=== PATIENT | male | born 1940 | race Caucasian/White ===

== ENCOUNTER 2024-05-06 17:57 | Inpatient (IN) | payer MEDICARE, OTHER, SELFPAY ==
[2024-05-06] VITALS (7 sets, daily range): BP systolic 153–177; BP diastolic 70–90; BMI 22.2
--- NOTE | 2024-05-06 16:46 | ED.GENMED ---
History of Present Illness
General
Chief Complaint: Breathing Problem
Time Seen by Provider: 05/06/24 16:46
History of Present Illness
History of Present Illness:
TIME OF INITIAL ENCOUNTER: 4:45 PM
HPI: EMS reported room air sats of 83%, coming in from home. He reportedly did not want to be on dialysis as of 5 weeks ago and has been having shortness of breath over the past week. He was in more significant distress today and came in here by
EMS. His weight was as low as 114 pounds but currently is 141 pounds.
GENERAL: Chronically ill-appearing
HEENT: Moist oral mucosa
CARDIOVASCULAR: No murmurs, normal heart rate, regular rhythm, No chest wall tenderness
PULMONARY: Mild to moderate respiratory distress, decreased breath sounds at the bases with Rales
ABDOMEN: Soft with no peritoneal signs, no tenderness
NEUROLOGIC: Excellent strength all extremities, no coordination deficits
PSYCHIATRIC: Appropriate mental status, normal insight and judgement
EXTREMITIES: There is a thrill to the right upper extremity at the right AC
SKIN: No rash, no lesions EXAM:
NUMBER AND COMPLEXITY OF PROBLEMS ADDRESSED AT THE ENCOUNTER
� Chronic conditions affecting care: CHF, CKD, high blood pressure, hyperlipidemia, thyroid disease, diabetes
� Acute Exacerbation and/or Progression of Chronic Illness: This is a subacute/worsening problem
� Differential Diagnosis includes: Volume overload, CKD, hyperkalemia, pneumonia, CHF
AMOUNT AND/OR COMPLEXITY OF DATA TO BE REVIEWED AND ANALYZED
� I performed an independent evaluation of and my interpretation is:
EKG: Sinus 64, right bundle branch block
CT:
X-rays: Interstitial edema noted on chest x-ray�I personally reviewed
Laboratory Studies: Creatinine 4.5, bicarb 19, potassium 4.9, hemoglobin 7.8
Other:
� Review of other/old records: Hemoglobin 1 year ago was 8.7
� Clinical information was obtained by an independent historian: EMS; I spoke to his son (Dr. Galen Galvan, senior health physics technician) over the phone
� Prescriptions/Medications Considered but not given:
� Further testing considered but not performed:
RISK OF COMPLICATIONS AND/OR MORBIDITY OR MORTALITY OF PATIENT MANAGEMENT
� Social determinants of health affecting care: Lives at home
� Discussion with other providers: Hospitalist for admission at 5:20 PM; I also notified nephrology
� Escalation of care including admission/observation vs risk of discharge considered: See below
ANY OTHER UPDATES:
5:20 PM: I reassessed patient and patient is currently not willing to proceed with dialysis however is not sure yet. Will give IV diuretic. Plan admission to the hospital. Shortness of breath likely multifactorial as there has been increased
weight gain he does have evidence of volume overload and patient is also anemic.
Phy Exam
Physical Exam
Physical Exam:
See HPI
Scores
Heart Failure Risk
Heart Failure Risk Score: Not Applicable
Course
Orders/Labs/Results
Orders:
Orders
05/06/24 16:34
Electrocardiogram (*1) Urgent
Reason for Study: Other
Other Reason for Exam: Respiratory Distress
EKG- Treatment ONCE
O2 Therapy [RESP] Urgent
Titrate/Wean O2 to maintain O2 sat greater than (%): 93
Special Instructions: TO MAINTAIN CONTINUOUS O2 SATS >/= 93%
05/06/24 16:40
Complete Blood Count/With Diff Urgent
Comprehensive Metabolic Panel Urgent
NT-proBNP Urgent
05/06/24 17:08
Furosemide [Lasix] 40 mg IV NOW STA
05/06/24 17:12
CXR [CR Chest Portable - 1 View] Urgent
Comment:
Reason For Exam: SOB, low SPO2
Reason Study Needs to be Portable: Patient Unstable
05/06/24 17:34
Admit/Transfer Patient As Directed
Co-Sign Provider:
Level of Care: Inpatient admission
Assign to:: Telemetry
Physician / Group: Ford
Diagnosis: Shortness of breath sec to fluid overload from CKD
Reason for Telemetry: Acute Heart Failure
Date to Stop Telemetry: 05/09/24
Time to Stop Telemetry: 11:00
Reason for Hospitalization: see progress note
Expected length of stay greater than two midnights?: Yes
ELOS- Estimated Length of Stay in days: 3
I certify the patient meets the requirements for IP care: Yes
PRN Pain Medication Management As Directed
May give lesser potent ordered pain med per pt: Yes
preference::
Protocol:: Medication orders for pain may be administered in a
manner that supports deferring to patient preference
when the pt is:
- Requesting an ordered lesser potent pain medication.
Least to most potent pain medications are defined
as: acetaminophen < NSAID < tramadol < opioids
(morphine, oxycodone, hydromorphone).
- Requesting a lesser dose of the same medication IF
ORDERED.
- Requesting a less intrusive route of administration
if both routes are prescribed by the provider (PO <
IV).
05/06/24 17:35
Code Status As Directed
Resuscitation Status: Full Code
05/06/24 18:19
COVID-19 Antigen Routine
Source: Nasal Swab
Influenza A+B Rapid Molecular Routine
BRUCE Source: Nasal Swab
Specimen Description:
05/09/24 11:00
DC Protocol for Telemetry ONCE
Abnormal Lab Results
05/06/24
16:40
RBC 2.40 L 10^6/uL
(4.70-6.10)
Hgb 7.8 L g/dL
(13.0-18.0)
Hct 24.0 L %
(39.0-52.0)
MCV 100.0 H fL
(80.0-94.0)
MCH 32.5 H pg
(27.0-31.0)
MCHC 32.5 L g/dL
(33.0-37.0)
RDW 17.1 H %
(11.5-14.5)
Absolute Lymphs (auto) 0.7 L 10^3/uL
(1.2-3.4)
Absolute Monos (auto) 0.7 H 10^3/uL
(0.1-0.6)
Neutrophils % 78.2 H %
(42.2-75.2)
Lymphocytes % 9.6 L %
(20.5-51.1)
Monocytes % 10.3 H %
(1.7-9.3)
Chloride 108 H mmol/L
(98-107)
Carbon Dioxide 19 L mmol/L
(22-30)
BUN 72 H mg/dl
(9-20)
Creatinine 4.5 H* mg/dL
(0.7-1.3)
Glucose 112 H mg/dl
(70-99)
Total Protein 5.7 L g/dl
(6.3-8.2)
Albumin 3.3 L g/dl
(3.5-5.0)
05/06/24 16:40
05/06/24 16:40
Vital Signs
Initial and Last Documented VS:
Initial Vital Signs
Temp Pulse Resp BP Pulse Ox
97.9 F 83 20 177/90 96
05/06/24 16:34 05/06/24 16:34 05/06/24 16:34 05/06/24 16:34 05/06/24 16:34
Last Documented Vital Signs
Temp Pulse Resp BP Pulse Ox
97.9 F 65 24 158/80 96
05/06/24 16:34 05/06/24 19:00 05/06/24 19:00 05/06/24 19:00 05/06/24 16:34
*Critical Care Note
Total Time (30-74mins, 75-104mins- exclusive of procedures): Not Applicable
ED Attending Note
-
Portions of this chart may have been created with voice recognition software.� Occasional wrong word or��sound alike� substitutions may have occurred due to the inherent limitations of voice recognition software.
Discharge Plan
Departure
Patient Disposition: Admit
Date of Disposition: 05/06/24
Time of Disposition: 17:19
Presentation/result/management discussed w/ accepting MD/DO: Hospitalist
Discharge Problem:
Volume overload
Interventions
Interventions:
*Risk Screen - Suicide Last Done: 05/06/24 16:34
*General Assessment Last Done: 05/06/24 16:34
*Neglect/Abuse Screening Last Done: 05/06/24 16:34
*ED COVID-19 Vaccine History Last Done: 05/06/24 17:00
ED- Cardiac Assessment Last Done: 05/06/24 17:00
ED- Pulmonary Assessment Last Done: 05/06/24 17:00
[2024-05-06 16:48] LABS: % Basophils 0.1 % (0-2); % Eosinophils 1.4 % (0-6); % Immature Granulocytes 0.4 % (0-0.5); % Lymphocytes 9.6 % (20.5-51.1); % Monocytes 10.3 % (1.7-9.3); % Neutrophils 78.2 % (42.2-75.2); Absolute Eosinophils 0.1 10^3/uL (0-0.7); Absolute Lymphocytes 0.7 10^3/uL (1.2-3.4); Absolute Monocytes 0.7 10^3/uL (0.1-0.6); Absolute Neutrophils 5.5 10^3/uL (1.4-6.5); Hemoglobin 7.8 g/dL (13.0-18.0); Mean Corp Hgb Conc. 32.5 g/dL (33.0-37.0); Mean Corpuscular Hgb 32.5 pg (27.0-31.0); Mean Platelet Volume 9.9 fL (7.4-10.4); Nucleated Red Blood Cells % 0 % (-); Platelet Count 142 10^3/uL (130-400); Red Cell Dist. Width 17.1 % (11.5-14.5)
[2024-05-06 17:03] LABS: ALT (SGPT) 18 U/L (0-50); AST (SGOT) 30 U/L (17-59); Albumin 3.3 g/dl (3.5-5.0); Alkaline Phosphatase 114 U/L (38-126); Blood Urea Nitrogen 72 mg/dl (9-20); Calcium 8.7 mg/dl (8.4-10.2); Carbon Dioxide 19 mmol/L (22-30); Chloride 108 mmol/L (98-107); Estimated Creatinine Clearance 10 ml/min; Glucose 112 mg/dl (70-99); Potassium 4.9 mmol/L (3.5-5.1); Sodium 140 mmol/L (135-145); Total Bilirubin 0.9 mg/dl (0.2-1.3); Total Protein 5.7 g/dl (6.3-8.2); eGFR 12.13
[2024-05-06 17:10] LABS: NT-proBNP 15100 pg/ml
[2024-05-06] MEDS: LASIX 40 MG IV (17:16)
--- NOTE | 2024-05-06 17:52 | W.CON.NEPH ---
Consultation
-
Date/Time Consultation Requested: 05/06/24 1700
Date/Time Consultation Performed: 05/06/24 1750
Requesting Provider: Dr. Ford
Performing Provider: Dr. Meléndez
Reason for Consultation: CKD5
Medical History
-
Chief Complaint: Shortness of breath
History of Present Illness:
This is an 83-year-old gentleman who has CKD 5 current baseline approximately 4.5. He is on chronic diuretic therapy for volume management, a multidrug regimen for hypertension, sodium bicarbonate for metabolic acidosis. He had previously been on
dialysis via an AV fistula in his right upper arm. His last dialysis was back in November 2023. At that point he had elected not to do dialysis any further. Fortunately, his renal function had stabilized and he has been doing well at home. He comes
in today because of progressive shortness of breath over a few days time according to his . By her report he actually began to have speech slurring which is what prompted her to bring him to the emergency room. We are asked to assist with
management of his CKD.
Past Medical History
CKD 5, hypertension, hyperlipidemia, depression, BPH, hypothyroidism, Diazemuls type II, skin cancers, esophageal dilatation, Mohs surgery, TURP
Social History
Tobacco: Non-Smoker
Alcohol: None
Family History
Family History: Not Pertinent
Allergies / Home Medications
Allergy/AdvReac Type Severity Reaction Status Date / Time
No Known Allergies Allergy Verified 05/05/23 09:06
�Medication �Instructions �Recorded �Confirmed �Type
allopurinol 100 mg tablet 100 mg PO DAILY 07/21/22 05/06/24 History
amlodipine 10 mg tablet 5 mg PO DAILY 07/21/22 05/06/24 History
atorvastatin 10 mg tablet 10 mg PO HS 07/21/22 05/06/24 History
bupropion HCl 100 mg tablet,12 hr 100 mg PO TID 07/21/22 05/06/24 History
sustained-release
cholecalciferol (vitamin D3) 25 50 mcg PO DAILY 07/21/22 05/06/24 History
mcg (1,000 unit) capsule (Vitamin
D3)
finasteride 5 mg tablet 5 mg PO DAILY 07/21/22 05/06/24 History
levothyroxine 112 mcg tablet 112 mcg PO DAILY 07/21/22 05/06/24 History
doxazosin 8 mg tablet 4 mg PO HS 07/24/22 05/06/24 History
darbepoetin yeny in polysorbat 150 150 mcg SC .Q2-3W 05/06/24 05/06/24 History
mcg/0.3 mL in polysorbate
injection syringe (Aranesp)
dupilumab 300 mg/2 mL subcutaneous 300 mg SC Q2W 05/06/24 05/06/24 History
syringe (Dupixent)
metoprolol tartrate 25 mg tablet 12.5 mg PO BID 05/06/24 05/06/24 History
sodium bicarbonate 650 mg tablet 650 mg PO MEALS 05/06/24 05/06/24 History
venlafaxine 37.5 mg 37.5 mg PO DAILY@1230 05/06/24 05/06/24 History
capsule,extended release 24 hr
Review of Systems
-
Denies chest pain or shortness of breath. No issues with output. No change in appetite.
All other systems: Negative unless noted
Physical Exam
Vital Signs
Vital Signs
Temp Pulse Resp BP Pulse Ox
97.9 F 63 20 154/82 96
05/06/24 16:34 05/06/24 17:16 05/06/24 16:34 05/06/24 17:16 05/06/24 16:34
Lab Results
WBC 7.0 10^3/uL (4.8-10.8) 05/06/24 16:40
RBC 2.40 10^6/uL (4.70-6.10) L 05/06/24 16:40
Hgb 7.8 g/dL (13.0-18.0) L 05/06/24 16:40
Hct 24.0 % (39.0-52.0) L 05/06/24 16:40
Plt Count 142 10^3/uL (130-400) 05/06/24 16:40
Sodium 140 mmol/L (135-145) 05/06/24 16:40
Potassium 4.9 mmol/L (3.5-5.1) 05/06/24 16:40
Chloride 108 mmol/L (98-107) H 05/06/24 16:40
Carbon Dioxide 19 mmol/L (22-30) L 05/06/24 16:40
BUN 72 mg/dl (9-20) H 05/06/24 16:40
Creatinine 4.5 mg/dL (0.7-1.3) H* 05/06/24 16:40
eGFR 12.13 05/06/24 16:40
Glucose 112 mg/dl (70-99) H 05/06/24 16:40
Calcium 8.7 mg/dl (8.4-10.2) 05/06/24 16:40
Rwv-K-Mcntparqupx Pept 09572 pg/ml 05/06/24 16:40
Albumin 3.3 g/dl (3.5-5.0) L 05/06/24 16:40
Laboratory Tests
05/06/23
09:22
Hgb 8.7 L
Sodium 138
Creatinine 4.8 H*
Physical Exam
Patient is awake alert oriented and in no distress. Mood and affect were pleasant, insight and judgment were good. Pupils are equal round and reactive to light, extraocular movements are intact, sclera were anicteric. Hearing was normal, ears and
nose are intact. Oropharynx was clear. Neck was supple with trachea midline and no thyromegaly. Heart was regular rate and rhythm without rubs. Lower extremities without edema. Lungs were with faint Rales scattered to auscultation bilaterally and
with normal excursion. Abdomen was soft, nontender, with normal active bowel sounds, and no hepatosplenomegaly. Skin was without rash and with normal turgor.
Data Reviewed
-
Radiology: Image Personally Visualized and interpreted (Chest x-ray on May 16, 2024 by my reading shows diffuse opacities bilaterally, bilateral effusions)
Labs: Labs Reviewed by me
Old Records: Reviewed
Assessment/Plan
-
Assessment
CKD 5
Metabolic acidosis
Hypertension
Shortness of breath
Pulmonary edema
BPH
Anemia, on Aranesp
Plan
Check iron studies, continue TARUN
Lasix 80 mg IV daily
Infectious evaluation, COVID pending
Follow BMP
Family does not wish to pursue dialysis currently still nor would we recommend.
--- NOTE | 2024-05-06 17:55 | HPS.HSE ---
Family Physician
-
Family Physician: RAN SQUIRES, DO
Chief Complaint
-
Shortness of breath
History of Present Illness
Patient states he has been feeling short of breath for the last couple of days. He denies any orthopnea. Denies any lower extremity swelling.
He initially was short of breath on exertion now even at rest. When ambulance checked on him he was hypoxic to 84% on room air.
He has a chronic kidney disease on hemodialysis till November. He stopped dialysis and also Lasix was stopped at the same time. He says since he stopped hemodialysis his weight was going down to 114 but then said lately has been increasing currently at
141 pounds. Again he denies any lower extremity swelling.
He denies any runny nose cough or sore throat. Does not think he is infected. No fevers or chills at home. Nobody sick at home. Denies any chest pain or palpitations.
Denies any nausea vomiting or diarrhea.
Apart from hypoxia he was also noted to have chest x-ray suggestive for mild interstitial edema with bilateral pleural effusions.
Medical History
Past Medical History
Past Medical History: Reports HTN, Hypercholesterolemia, NIDDM, Renal Failure and Psychiatric (depression)
Past Surgical History: Reports Other (AV fistula)
Social History
Alcohol: None
Drug: None
Personal:
Living: With Family
Family History
Family History: Not pertinent
Allergies / Home Medications
Allergies reflects when Allergies were last updated in [facility].
Home Medications with original date entered in [facility]
Allergy/Medication List:
Allergies
Allergy/AdvReac Type Severity Reaction Status Date / Time
No Known Allergies Allergy Verified 05/05/23 09:06
Home Medications
allopurinol 100 mg tablet 100 mg PO DAILY 07/21/22
amlodipine 10 mg tablet 5 mg PO DAILY 07/21/22
atorvastatin 10 mg tablet 10 mg PO HS 07/21/22
bupropion HCl 100 mg tablet,12 hr sustained-release 100 mg PO TID 07/21/22
cholecalciferol (vitamin D3) 25 mcg (1,000 unit) capsule (Vitamin D3) 50 mcg PO DAILY 07/21/22
finasteride 5 mg tablet 5 mg PO DAILY 07/21/22
levothyroxine 112 mcg tablet 112 mcg PO DAILY 07/21/22
doxazosin 8 mg tablet 4 mg PO HS 07/24/22
darbepoetin yeny in polysorbat 150 mcg/0.3 mL in polysorbate injection syringe (Aranesp) 150 mcg SC .Q2-3W 05/06/24
dupilumab 300 mg/2 mL subcutaneous syringe (Dupixent) 300 mg SC Q2W 05/06/24
metoprolol tartrate 25 mg tablet 12.5 mg PO BID 05/06/24
sodium bicarbonate 650 mg tablet 650 mg PO MEALS 05/06/24
venlafaxine 37.5 mg capsule,extended release 24 hr 37.5 mg PO DAILY@1230 05/06/24
Review of Systems
-
A 12 point ROS was completed and negative except as noted: Yes
Physical Exam
Vital Signs
Vital Signs
Temp Pulse Resp BP Pulse Ox
97.9 F 63 20 154/82 96
05/06/24 16:34 05/06/24 17:16 05/06/24 16:34 05/06/24 17:16 05/06/24 16:34
Physical Exam
General: No Apparent Distress
HEENT: Moist mucous membranes
Respiratory: Crackles (Bibasal) and Non Labored Respirations; No Wheezes or Accessory Resp Muscle Use
Cardiac: S1/S2, Regular Rhythm, JVD and Other (?s3)
GI: Soft and Non Tender
Musculoskeletal: No Edema
Neuro: AO x 3 and No Motor Deficits; No Slurred Speech or Facial Droop
Psych: Calm; No Confused
Laboratory Results
-
05/06/24 16:40
05/06/24 16:40
Laboratory Results
Total Bilirubin 0.9 mg/dl (0.2-1.3) 05/06/24 16:40
AST 30 U/L (17-59) 05/06/24 16:40
ALT 18 U/L (0-50) 05/06/24 16:40
Alkaline Phosphatase 114 U/L (38-126) 05/06/24 16:40
Data Reviewed
-
Diagnostic Radiology: Report Reviewed by me (cxr)
Lab Data: Labs Reviewed by me
Impression/Plan
-
Acute hypoxic respiratory insufficiency suspected secondary to pulmonary interstitial edema
Acute interstitial edema suspected secondary to fluid overload from lack of hemodialysis. Rule out new CHF. Doubt infectious but cannot exclude as he does not have significant lower extremity edema. Admit to telemetry. Start on IV Lasix.
Consult nephrology. Check a procalcitonin and if it is negative it has good negative predictive value. Check a flu and COVID testing. Empirical antibiotics for 24 hours till data is back. Consider thoracentesis if no improvement with diuresis.
Follow chest x-ray with diuresis.
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 No hyperkalemia. Metabolic acidosis noted. Creatinine 4.5 which is not significantly higher. Consult nephrology. Follow I&O's and weights daily. Continue oral
bicarbonate.
Hypertension-continue the home medication and follow
Chronic anemia-hemoglobin 7.8. Patient is getting Aranesp as outpatient. Continue to follow. Check heme test stools.
Diabetes mellitus-diet controlled. Add sliding scale insulin.
CODE STATUS-patient wishes to be full code.
Discussed with at bedside regarding the findings and the treatment plan.
[2024-05-06 18:42] LABS: COVID-19 Antigen Negative (Negative)
[2024-05-06] MEDS: ROCEPHIN 1000 MG IV (21:05)
[2024-05-06] MEDS: HEPARIN 5000 UNITS SC (21:05)
[2024-05-06] MEDS: LIPITOR 10 MG PO (21:06)
[2024-05-06] MEDS: WELLBUTRIN REGULAR RELEASE 100 MG PO (21:06)
[2024-05-06] MEDS: VIBRAMYCIN 100 MG PO (21:06)
[2024-05-06] MEDS: CARDURA 4 MG PO (21:06)
--- NOTE | 2024-05-06 21:30 | PTCARENOTE ---
Patient admitted from ED. Patient AAO x3, on 6LNC, resting comfortably in bed, no other complaints. Patient oriented to room and call diaz within reach. Will continue to monitor respiratory status.
[2024-05-06 21:45] LABS: Glucose - Point of Care 100 mg/dl (70-99)
[2024-05-07 00:10] LABS: Procalcitonin 0.08 ng/ml (0.0-0.25)
[2024-05-07 03:50] VITALS: BP 134/62
[2024-05-07] MEDS: SYNTHROID 112 MCG PO (05:19)
[2024-05-07 06:00] VITALS: BMI 21.7
[2024-05-07 07:05] LABS: Hematocrit 23.7 % (39.0-52.0); Hemoglobin 7.8 g/dL (13.0-18.0); Mean Corp Hgb Conc. 32.9 g/dL (33.0-37.0); Mean Corpuscular Hgb 32.6 pg (27.0-31.0); Mean Corpuscular Volume 99.2 fL (80.0-94.0); Mean Platelet Volume 10.4 fL (7.4-10.4); Platelet Count 131 10^3/uL (130-400); Red Blood Cell Count 2.39 10^6/uL (4.70-6.10); Red Cell Dist. Width 16.8 % (11.5-14.5); White Blood Cell Count 6.8 10^3/uL (4.8-10.8)
[2024-05-07 07:34] LABS: Glucose - Point of Care 84 mg/dl (70-99)
[2024-05-07 07:35] VITALS: BP 163/84
[2024-05-07] MEDS: NOVOLOG FLEXPEN-LOW RESISTANCE SC ×3 (07:37→17:00)
[2024-05-07 08:35] LABS: Glycohemoglobin (HgbA1c) 5.6 % (4.0-5.6)
[2024-05-07 08:41] LABS: Blood Urea Nitrogen 75 mg/dl (9-20); Calcium 8.9 mg/dl (8.4-10.2); Carbon Dioxide 13 mmol/L (22-30); Chloride 111 mmol/L (98-107); Estimated Creatinine Clearance 10 ml/min; Glucose 73 mg/dl (70-99); Iron 42 ug/dl (49-181); Percent Saturation 21 % (20-50); Potassium 5.1 mmol/L (3.5-5.1); Sodium 141 mmol/L (135-145); Total Iron Binding Capacity 194 ug/dl (261-462); eGFR 11.82
[2024-05-07] MEDS: LOPRESSOR 12.5 MG PO ×2 (09:17→21:06)
[2024-05-07] MEDS: HEPARIN 5000 UNITS SC ×2 (09:17→21:06)
[2024-05-07] MEDS: VIBRAMYCIN 100 MG PO (09:18)
[2024-05-07] MEDS: WELLBUTRIN REGULAR RELEASE 100 MG PO ×3 (09:18→21:06)
[2024-05-07] MEDS: NORVASC 5 MG PO (09:18)
[2024-05-07] MEDS: PROSCAR 5 MG PO (09:18)
[2024-05-07] MEDS: LASIX 80 MG IV ×2 (09:18→16:01)
[2024-05-07] MEDS: SODIUM BICARBONATE 650 MG PO (09:18)
[2024-05-07] MEDS: VITAMIN D3 (cholecalciferol) 50 MCG PO (09:19)
[2024-05-07] MEDS: ZYLOPRIM 100 MG PO (09:19)
[2024-05-07 11:25] VITALS: BP 145/70
[2024-05-07 11:31] LABS: Glucose - Point of Care 111 mg/dl (70-99)
--- NOTE | 2024-05-07 11:41 | W.PN.NEPH.PH ---
Today's Communication / Plan
-
lasix BID
Assessment/Plan
-
Assessment
CKD 5
Metabolic acidosis
Hypertension
Shortness of breath
Pulmonary edema
BPH
Anemia, on Aranesp
Plan
TARUN last dosed 10days ago according to
PRBC transfusion up to primary team
IV Iron
increase Lasix 80 mg IV BID
Follow BMP
Family does not wish to pursue dialysis currently still nor would we recommend.
-
-
Date of Service: May 07, 2024
CC / HPI / ROS
-
Chief Complaint:
CKD5
History of Present Illness:
Cr stable 4.6
acidosis worse 13
remains anemia hgb 7.8
K normal
on IV lasix for pulmonary edema
Review of Systems:
no CP
mild SOB, on 6L o2
Labs
-
Labs:
WBC 6.8 10^3/uL (4.8-10.8) 05/07/24 05:28
RBC 2.39 10^6/uL (4.70-6.10) L 05/07/24 05:28
Hgb 7.8 g/dL (13.0-18.0) L 05/07/24 05:28
Hct 23.7 % (39.0-52.0) L 05/07/24 05:28
Plt Count 131 10^3/uL (130-400) 05/07/24 05:28
Sodium 141 mmol/L (135-145) 05/07/24 05:28
Potassium 5.1 mmol/L (3.5-5.1) 05/07/24 05:28
Chloride 111 mmol/L (98-107) H 05/07/24 05:28
Carbon Dioxide 13 mmol/L (22-30) L* 05/07/24 05:28
BUN 75 mg/dl (9-20) H 05/07/24 05:28
Creatinine 4.6 mg/dL (0.7-1.3) H* 05/07/24 05:28
eGFR 11.82 05/07/24 05:28
Glucose 73 mg/dl (70-99) 05/07/24 05:28
Calcium 8.9 mg/dl (8.4-10.2) 05/07/24 05:28
Tzs-W-Ncjbpvhpspw Pept 42904 pg/ml 05/06/24 16:40
Albumin 3.3 g/dl (3.5-5.0) L 05/06/24 16:40
Physical Exam
-
Vital Signs:
Vital Signs
Temp Pulse Resp BP Pulse Ox
98.0 F 71 18 163/84 94
05/07/24 07:35 05/07/24 09:17 05/07/24 07:35 05/07/24 09:17 05/07/24 07:35
Cardiovascular:: Regular rate and rhythm
Respiratory:: Bilateral: Coarse and Bilateral: Rales
Lung Excursion:: Normal
Abdomen:: Nontender and Soft
Bowel Sounds:: Normal
Extremity Edema:: None: Bilateral:
--- NOTE | 2024-05-07 13:26 | W.PN.HOSP.TC ---
Today's Communication/Plan
-
Continue with diuresis.
Follow weight.
ECHO.
DC antibiotics.
Assessment / Plan
Assessment / Plan
Acute hypoxic respiratory insufficiency suspected secondary to pulmonary interstitial edema
Acute interstitial edema suspected secondary to fluid overload from lack of hemodialysis. Rule out new CHF. CW IV Lasix -consider increasing the dose. ECHO. Appt nephrology input.
Doubt infectious -neg procalcitonin ; it has good negative predictive value. Patient with no infective symptoms of sore throat, cough, fever or chills. Neg flu and COVID testing. Hold Empirical antibiotics Consider thoracentesis if no
improvement with diuresis. Follow chest x-ray with diuresis.
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 No hyperkalemia. Metabolic acidosis noted. Creatinine 4.5 which is not significantly higher. Follow I&O's and weights daily. Continue oral bicarbonate.
Hypertension-continue the home medication and follow
Chronic anemia-hemoglobin 7.8. Patient is getting Aranesp as outpatient. Continue to follow. Check heme test stools.
Diabetes mellitus-diet controlled. cw sliding scale insulin.
CODE STATUS-patient wishes to be full code.
Discussed with nephrology today.
Total time spent on today's encounter was 52 minutes which included time spent in counseling the patient regarding diagnosis and treatment plan as listed above, goals of care, and symptom management. Case was discussed with nursing staff,
specialists . All labs and imaging personally reviewed by me. Remainder the time spent in detailed review of previous records, lab data, imaging, and other medical provider documentation.
Anticipated Discharge: > 48 hours
Subjective/Interval History
-
Date of Service: May 07, 2024
He made some decent urine with IV Lasix.
Denies any worsening shortness of breath. He thinks it may be better. Still on oxygen via nasal cannula. Sitting comfortably at the edge of the bed.
Denies any chest pain.
No cough again. Denies any sore throat or fever chills again.
Objective Data
-
Labs:
Laboratory Results
05/07/24
05:28
WBC 6.8
Hgb 7.8 L
Hct 23.7 L
Plt Count 131
Sodium 141
Potassium 5.1
Chloride 111 H
Carbon Dioxide 13 L*
BUN 75 H
Creatinine 4.6 H*
Glucose 73
Calcium 8.9
Vital Signs:
Vital Signs
Temp Pulse Resp BP Pulse Ox
97.8 F 61 18 145/70 97
05/07/24 11:25 05/07/24 11:25 05/07/24 11:25 05/07/24 11:25 05/07/24 12:01
I&O
05/06/24 05/07/24 05/08/24
06:59 06:59 05:59
Output Total 1200 / 1200
Balance -1200 / -1200
Review of Systems
-
EENT: Denies Sore Throat
Cardiac: Denies Palpitations
Abdomen/GI: Denies Abdominal Pain, Nausea or Vomiting
Neuro: Denies Dizzy
Physical Exam
-
General: Comfortable
Respiratory: Crackles (BL lower zone crackles) and Non Labored Respirations; Negative Wheezes or Accessory Resp Muscle Use
Cardiac: Regular Rhythm and S1/S2
GI: Soft and Nontender
Musculoskeletal: No Edema
Neuro: AO x 3
[2024-05-07] MEDS: EFFEXOR XR 37.5 MG PO (13:32)
[2024-05-07] MEDS: FERRLECIT 110 MG IV (14:23)
--- NOTE | 2024-05-07 14:53 | CM ---
CM following re: discharge planning.
Reviewed pt's chart, met with pt.
Pt is an 83 year old male, admitted with primary dx of Acute hypoxic respiratory insufficiency suspected secondary to pulmonary interstitial edema
Pt reports he lives with spouse in an apartment, 2nd floor, with elevator, has 2 supportive children. Pt described himself as independent in all areas [employer]. No DME, VN or SNF history.
PCP: Raffaele rangel
pharmacy: [facility]
D/C plan: home with anticipated no needs. family to transport at discharge.
CM will follow with discharge plan updates as hospitalization progresses
[2024-05-07 15:40] VITALS: BP 147/82
[2024-05-07 16:41] LABS: Glucose - Point of Care 130 mg/dl (70-99)
[2024-05-07 19:27] VITALS: BP 152/83
[2024-05-07] MEDS: SODIUM BICARBONATE 1300 MG PO (21:06)
[2024-05-07] MEDS: CARDURA 4 MG PO (21:06)
[2024-05-07] MEDS: LIPITOR 10 MG PO (21:06)
[2024-05-07 21:21] LABS: Glucose - Point of Care 94 mg/dl (70-99)
[2024-05-07 23:34] VITALS: BP 155/81
[2024-05-08] VITALS (7 sets, daily range): BP systolic 131–163; BP diastolic 73–85; BMI 20.7
[2024-05-08] MEDS: SYNTHROID 112 MCG PO (05:03)
[2024-05-08 06:07] LABS: Hematocrit 24.3 % (39.0-52.0); Hemoglobin 8.2 g/dL (13.0-18.0); Mean Corp Hgb Conc. 33.7 g/dL (33.0-37.0); Mean Corpuscular Volume 100.8 fL (80.0-94.0); Mean Platelet Volume 10.5 fL (7.4-10.4); Platelet Count 123 10^3/uL (130-400); Red Blood Cell Count 2.41 10^6/uL (4.70-6.10); White Blood Cell Count 6.1 10^3/uL (4.8-10.8)
[2024-05-08 06:39] LABS: Blood Urea Nitrogen 77 mg/dl (9-20); Calcium 8.7 mg/dl (8.4-10.2); Carbon Dioxide 19 mmol/L (22-30); Chloride 107 mmol/L (98-107); Estimated Creatinine Clearance 9 ml/min; Glucose 65 mg/dl (70-99); Potassium 4.4 mmol/L (3.5-5.1); Sodium 141 mmol/L (135-145); eGFR 10.95
[2024-05-08 07:09] LABS: Glucose - Point of Care 78 mg/dl (70-99)
[2024-05-08] MEDS: NOVOLOG FLEXPEN-LOW RESISTANCE SC ×3 (08:20→16:39)
--- NOTE | 2024-05-08 10:14 | W.PN.NEPH.PH ---
Today's Communication / Plan
-
lasix
Assessment/Plan
-
Assessment
CKD 5
Metabolic acidosis
Hypertension
Shortness of breath
Pulmonary edema
BPH
Anemia, on Aranesp
Plan
TARUN last dosed ~10days ago according to
PRBC transfusion prn
IV Iron
reduce lasix to daily
Follow BMP
Family does not wish to pursue dialysis currently still nor would we recommend.
-
-
Date of Service: May 08, 2024
CC / HPI / ROS
-
Chief Complaint:
CKD5
History of Present Illness:
HORACE/Cr up to 4.9
acidosis improving to 19
remains anemic but hgb up to 8.2
K normal
on IV lasix for pulmonary edema
Review of Systems:
no CP
mild SOB, on 6L o2
Labs
-
Labs:
WBC 6.1 10^3/uL (4.8-10.8) 05/08/24 05:15
RBC 2.41 10^6/uL (4.70-6.10) L 05/08/24 05:15
Hgb 8.2 g/dL (13.0-18.0) L 05/08/24 05:15
Hct 24.3 % (39.0-52.0) L 05/08/24 05:15
Plt Count 123 10^3/uL (130-400) L 05/08/24 05:15
Sodium 141 mmol/L (135-145) 05/08/24 05:15
Potassium 4.4 mmol/L (3.5-5.1) 05/08/24 05:15
Chloride 107 mmol/L (98-107) 05/08/24 05:15
Carbon Dioxide 19 mmol/L (22-30) L 05/08/24 05:15
BUN 77 mg/dl (9-20) H 05/08/24 05:15
Creatinine 4.9 mg/dL (0.7-1.3) H* 05/08/24 05:15
eGFR 10.95 05/08/24 05:15
Glucose 65 mg/dl (70-99) L 05/08/24 05:15
Calcium 8.7 mg/dl (8.4-10.2) 05/08/24 05:15
Sex-R-Jwngigoexbw Pept 70400 pg/ml 05/06/24 16:40
Albumin 3.3 g/dl (3.5-5.0) L 05/06/24 16:40
Physical Exam
-
Vital Signs:
Vital Signs
Temp Pulse Resp BP Pulse Ox
98.2 F 74 20 154/80 95
05/08/24 07:52 05/08/24 07:52 05/08/24 07:52 05/08/24 07:52 05/08/24 07:52
Cardiovascular:: Regular rate and rhythm
Respiratory:: Bilateral: Coarse and Bilateral: Rales
Lung Excursion:: Normal
Abdomen:: Nontender and Soft
Bowel Sounds:: Normal
Extremity Edema:: None: Bilateral:
[2024-05-08] MEDS: VITAMIN D3 (cholecalciferol) 50 MCG PO (10:45)
[2024-05-08] MEDS: WELLBUTRIN REGULAR RELEASE 100 MG PO ×3 (10:45→21:41)
[2024-05-08] MEDS: LOPRESSOR 12.5 MG PO ×2 (10:45→21:42)
[2024-05-08] MEDS: PROSCAR 5 MG PO (10:45)
[2024-05-08] MEDS: HEPARIN 5000 UNITS SC (10:46)
[2024-05-08] MEDS: ZYLOPRIM 100 MG PO (10:46)
[2024-05-08] MEDS: NORVASC 5 MG PO (10:46)
[2024-05-08 11:53] LABS: Glucose - Point of Care 95 mg/dl (70-99)
[2024-05-08] MEDS: EFFEXOR XR 37.5 MG PO (12:09)
--- NOTE | 2024-05-08 12:09 | W.PN.HOSP.TC ---
Today's Communication/Plan
-
CW IV lasix
Echo
CXR repeat in am
Wean o2
Assessment / Plan
Assessment / Plan
Acute hypoxic respiratory insufficiency suspected secondary to pulmonary interstitial edema
Acute interstitial edema suspected secondary to fluid overload from lack of hemodialysis. Rule out new CHF. . ECHO. Improving wt and symptom. CW Lasix IV. Appt nephrology input.
Doubt infectious -neg procalcitonin ; it has good negative predictive value. Patient with no infective symptoms of sore throat, cough, fever or chills. Neg flu and COVID testing. Hold Empirical antibiotics Consider thoracentesis if no
improvement with diuresis. Follow chest x-ray with diuresis.
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 No hyperkalemia. Metabolic acidosis noted. Creatinine 4.5 which is not significantly higher. Follow I&O's and weights daily. Continue oral bicarbonate.
Hypertension-continue the home medication and follow
Chronic anemia-hemoglobin 7.8. Patient is getting Aranesp as outpatient. Continue to follow. Check heme test stools.
Diabetes mellitus-diet controlled. cw sliding scale insulin.
CODE STATUS-patient wishes to be full code.
Discussed with at bedside.
Anticipated Discharge: 24 - 48 hours
Subjective/Interval History
-
Date of Service: May 08, 2024
Improved breathing .
notices that he is not huffing as much as yesterday
No chest pain.
No N/V.
Objective Data
-
Labs:
Laboratory Results
05/08/24
05:15
WBC 6.1
Hgb 8.2 L
Hct 24.3 L
Plt Count 123 L
Sodium 141
Potassium 4.4
Chloride 107
Carbon Dioxide 19 L
BUN 77 H
Creatinine 4.9 H*
Glucose 65 L
Calcium 8.7
Vital Signs:
Vital Signs
Temp Pulse Resp BP Pulse Ox
98 F 70 20 144/76 95
05/08/24 11:28 05/08/24 11:28 05/08/24 11:28 05/08/24 11:28 05/08/24 11:28
I&O
05/07/24 05/08/24 05/09/24
07:59 06:59 06:59
Intake Total
Output Total
Balance
Review of Systems
-
Constitutional: Denies Fever or Chills
EENT: Denies Sore Throat
Respiratory: Reports Trouble Breathing; Denies Cough
Cardiac: Denies Chest Pain
Neuro: Denies Dizzy
Physical Exam
-
General: Comfortable
Respiratory: Crackles (Bl basilar) and Non Labored Respirations; Negative Wheezes or Accessory Resp Muscle Use
Cardiac: Regular Rhythm and S1/S2
GI: Soft
Musculoskeletal: No Edema
Neuro: AO x 3
Psych: Calm
Data Reviewed
-
Labs: Labs Reviewed by me
[2024-05-08] MEDS: SODIUM BICARBONATE 1300 MG PO ×2 (12:10→21:42)
[2024-05-08] MEDS: LASIX 80 MG IV (13:07)
[2024-05-08] MEDS: FERRLECIT 110 MG IV (14:24)
[2024-05-08 16:39] LABS: Glucose - Point of Care 130 mg/dl (70-99)
--- NOTE | 2024-05-08 18:12 | W.PN.UPDATE ---
Update Note
Progress Note Update
Cross Coverage Update:
Alerted by nurse patient had a fall. Patient was found on floor with large contusion/swelling on head.
seen and examined at bedside. Vital signs stable. Patient in no acute distress resting comfortably in bed. Denies headache lightheadedness blurry vision. AOx3. Noted mild intermittent confusion baseline as per nurse. Patient reported that he
had slipped while walking resulting in head trauma, unable to give further specifics. Discussed obtaining CT head to evaluate for possible intracranial hemorrhage, fracture, or other potential complication of fall with head trauma. Patient however
declined despite discussion of potential risks.
Discussed with Nurse:
-repeat neurochecks in 4 hours, if no acute issues noted, extend to Q8H
-maintain fall precautions
-medsitter to be present for tonight
--- NOTE | 2024-05-08 19:25 | PTCARENOTE ---
Patient was founs siting on the floor. Please see incident report.
[2024-05-08] MEDS: HEPARIN SC (20:30)
[2024-05-08] MEDS: LIPITOR 10 MG PO (21:41)
[2024-05-08] MEDS: CARDURA 4 MG PO (21:41)
[2024-05-08 21:44] LABS: Glucose - Point of Care 120 mg/dl (70-99)
--- NOTE | 2024-05-08 22:32 | W.PN.UPDATE ---
Update Note
Progress Note Update
-Reported by the nursing staff that the patient`son/ Dr. Aaron territory manager would like to speak with the covering team.
-Spoke to the son, he mentioned that is hard time for his mom to take care of the patient in the last 6 month. He would like to give his mom some options that could be benefits for the patient as well. As the patient is refusing dialysis.
-He requested for psych consult and to discuss hospice consult in am with the mom and morning team.
-Psych consult was placed and will update morning team.
[2024-05-09] VITALS (8 sets, daily range): BP systolic 128–156; BP diastolic 59–81; O2SAT 95; BMI 19.9
--- NOTE | 2024-05-09 00:37 | PTCARENOTE ---
Addendum entered by Hugo Rivera RN 05/09/24 06:33:
Pt continued to be monitored. Pt oriented to place & time, with periods of confusion at times only. Pt didn't want to sleep & is sitting up & sleeping, doesn't like when said about safety measures.Pt wants to walk to BR was explained about the
fall,oxygen needs & pt unsteady.Pt was helped oob to BSC & used urinal as needed.All comfort measures were continued with pt. Pt refused neurochecks this morning.VSS. Pt denies of any pain or dizziness.Plan of care continued.
Addendum entered by Hugo Rivera RN 05/09/24 00:43:
Pt family & son were called & made aware of pt fall, refusing CT scan, refusing medications & nursing care.Pt spoke to pt later & pt agreed to take his medications.Neurochecks continued.Pt resting comfortably. As per pt Son Galen,he wants a
psychiatry & hospice consult on pt.VICTORIAN LITERATURE PROFESSOR control integration engineer made aware of it.Plan of care continued.
Original Note:
Pt aaox3 with periods of confusion at times as per report.Pt refusing Vital signs, BSL check, medications & neurochecks,nursing assessment in the beginning of the shift,otherwise resting comfortably, denies headache, blurry vision or dizziness.VICTORIAN LITERATURE PROFESSOR
control integration engineer was made aware of pt contusion/hematoma,refusing nursing care & CT scan.
[2024-05-09] MEDS: SYNTHROID PO (06:41)
--- NOTE | 2024-05-09 08:03 | W.PN.HOSP.TC ---
Today's Communication/Plan
-
Dialysis tomorrow -- patient now would like dialysis, appreciate nephrology
Continue DVT prophylaxis
Appreciate psychiatry and medication adjustments
Assessment / Plan
Assessment / Plan
Physical Exam
General: Not in acute distress.
Respiratory: CTAB.
Cardiac: Regular Rhythm and S1/S2
GI: Soft. Nontender. Positive bowel sounds.
Musculoskeletal: No Edema, no cyanosis
Neuro: AO x 3
Psych: Calm

Echocardiogram Results (as per airborne weapons technical manager's report)
'CONCLUSIONS
Normal biventricular size and systolic function without regional wall motion
abnormality.
Thickened mitral valve leaflets. Mitral annular calcification. Mild mitral
regurgitation.
Trileaflet aortic valve. Thickened aortic valve without stenosis.
No prior study available for comparison.'

Assessment/Plan
Presentation with Shortness of Breath
Acute hypoxic respiratory insufficiency suspected secondary to pulmonary interstitial edema
-Suspected this is secondary to renal disease
-Echocardiogram
-Continue IV Lasix 80 mg PO BID
Fall on 05/09/24
-Checked CT Head and CT C-spine: no fractures or hemorrhage
-Continue neurochecks
Acute interstitial edema suspected secondary to fluid overload from lack of hemodialysis. Echo not suggestive of CHF. Improving wt and symptom. CW Lasix IV. Appreciate nephrology input.
Doubt infectious -neg procalcitonin ; it has good negative predictive value. Patient with no infective symptoms of sore throat, cough, fever or chills. Neg flu and COVID testing. Continue to hold empiric antibiotics. Consider thoracentesis if no
improvement with diuresis. Following chest x-ray with diuresis: overall improving.
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 No hyperkalemia. Metabolic acidosis noted. Creatinine 4.5 which is not significantly higher. Follow I&O's and weights daily. Continue oral bicarbonate. Patient
and his family confirmed on May 09, 2024 that patient wants dialysis now. Next scheduled dialysis for 05/10/24. Appreciate psychiatry evaluation -- patient has decision-making capacity.
Hypertension-continue the home medication and follow
Chronic anemia-hemoglobin 7.8. Patient is getting Aranesp as outpatient. Continue to follow.
Diabetes mellitus-diet controlled. cw sliding scale insulin.
DVT Prophylaxis: Heparin Subq
CODE STATUS-DNR/DNI. On May 09, 2024, I confirmed with the patient, his Amalia, and his son Dr. Galen Moeller, that patient is DNR/DNI.
I discussed patient's case with patient's , patient at bedside, and patient's son Galen over the phone. All questions and concerns were answered to satisfaction.
Total time spent today on chart review, seeing and examining the patient, documentation, reviewing orders, speaking with patient and his family, and speaking with nephrology, was 60 minutes.
Anticipated Discharge: 24 - 48 hours
Subjective/Interval History
-
Date of Service: May 09, 2024
Patient was seen and examined. He reported no new symptoms or complaints. He reported no blurry vision, no headache, no dizziness, no chest pain, no SOB, no numbness or tingling, and no new weakness. He was ambulating with assistance this morning.
Objective Data
-
Labs:
Laboratory Results
05/09/24
06:00
WBC Pending
Hgb Pending
Hct Pending
Plt Count Pending
Sodium Pending
Potassium Pending
Chloride Pending
Carbon Dioxide Pending
BUN Pending
Creatinine Pending
Glucose Pending
Calcium Pending
Vital Signs:
Vital Signs
Temp Pulse Resp BP Pulse Ox
98.0 F 72 18 148/76 96
05/09/24 03:13 05/09/24 03:13 05/09/24 03:13 05/09/24 03:13 05/09/24 03:13
I&O
05/08/24 05/09/24 05/10/24
06:59 06:59 06:59
Intake Total 1860 / 1860
Output Total 1630 / 1630
Balance 230 / 230
[2024-05-09 08:12] LABS: Glucose - Point of Care 74 mg/dl (70-99)
[2024-05-09] MEDS: NOVOLOG FLEXPEN-LOW RESISTANCE SC ×3 (08:17→16:02)
[2024-05-09] MEDS: LASIX 80 MG IV (09:04)
[2024-05-09] MEDS: NORVASC 5 MG PO (09:05)
[2024-05-09] MEDS: HEPARIN 5000 UNITS SC ×2 (09:05→21:01)
[2024-05-09] MEDS: VITAMIN D3 (cholecalciferol) 50 MCG PO (09:05)
[2024-05-09] MEDS: LOPRESSOR 12.5 MG PO ×2 (09:05→21:00)
[2024-05-09] MEDS: SODIUM BICARBONATE 1300 MG PO ×2 (09:05→21:01)
[2024-05-09] MEDS: ZYLOPRIM 100 MG PO (09:05)
[2024-05-09] MEDS: WELLBUTRIN REGULAR RELEASE 100 MG PO ×2 (09:05→21:01)
[2024-05-09] MEDS: PROSCAR 5 MG PO (09:06)
--- NOTE | 2024-05-09 09:16 | W.PN.NEPH.PH ---
Today's Communication / Plan
-
Observe
Assessment/Plan
-
Assessment
CKD 5
Metabolic acidosis
Hypertension
Shortness of breath
Pulmonary edema
BPH
Anemia, on Aranesp
Plan
TARUN last dosed ~10days ago according to
PRBC transfusion prn
IV Iron
reduced lasix to daily
Follow BMP
Chest x-ray notes effusions
Family does not wish to pursue dialysis currently still nor would we recommend.
had asked if we can dialyze him only in the hospital as an outpatient which I said that is not possible
If patient wants to transition to dialysis again he has to agree to go as an outpatient and then I can start dialysis again in the hospital
Possible hospice discussions to be initiated today as patient refuses dialysis and is clinically declining
-
-
Date of Service: May 09, 2024
CC / HPI / ROS
-
Chief Complaint:
CKD5
History of Present Illness:
HORCAE/Cr up to 4.9
acidosis improving to 19
remains anemic but hgb up to 8.2
K normal
on IV lasix for pulmonary edema
Review of Systems:
no CP
mild SOB, on 6L o2
Labs
-
Labs:
eGFR 10.95 05/08/24 05:15
Xoz-F-Skqxokvjeyn Pept 61696 pg/ml 05/06/24 16:40
Albumin 3.3 g/dl (3.5-5.0) L 05/06/24 16:40
Physical Exam
-
Vital Signs:
Vital Signs
Temp Pulse Resp BP Pulse Ox
98.2 F 71 18 156/81 97
05/09/24 07:24 05/09/24 09:04 05/09/24 07:24 05/09/24 09:04 05/09/24 07:24
Cardiovascular:: Regular rate and rhythm
Respiratory:: Bilateral: Coarse and Bilateral: Rales
Lung Excursion:: Normal
Abdomen:: Nontender and Soft
Bowel Sounds:: Normal
Extremity Edema:: None: Bilateral:
[2024-05-09 09:35] LABS: % Basophils 0.4 % (0-2); % Eosinophils 1.9 % (0-6); % Immature Granulocytes 0.4 % (0-0.5); % Lymphocytes 11.7 % (20.5-51.1); % Monocytes 8.9 % (1.7-9.3); % Neutrophils 76.7 % (42.2-75.2); Absolute Eosinophils 0.1 10^3/uL (0-0.7); Absolute Lymphocytes 0.8 10^3/uL (1.2-3.4); Absolute Monocytes 0.6 10^3/uL (0.1-0.6); Absolute Neutrophils 5.3 10^3/uL (1.4-6.5); Hematocrit 25.3 % (39.0-52.0); Hemoglobin 8.4 g/dL (13.0-18.0); Mean Corp Hgb Conc. 33.2 g/dL (33.0-37.0); Mean Corpuscular Hgb 33.7 pg (27.0-31.0); Mean Corpuscular Volume 101.6 fL (80.0-94.0); Mean Platelet Volume 9.2 fL (7.4-10.4); Nucleated Red Blood Cells % 0 % (-); Platelet Count 127 10^3/uL (130-400); Red Blood Cell Count 2.49 10^6/uL (4.70-6.10); White Blood Cell Count 6.9 10^3/uL (4.8-10.8)
[2024-05-09 10:21] LABS: Blood Urea Nitrogen 82 mg/dl (9-20); Calcium 8.8 mg/dl (8.4-10.2); Carbon Dioxide 24 mmol/L (22-30); Chloride 102 mmol/L (98-107); Estimated Creatinine Clearance 9 ml/min; Glucose 104 mg/dl (70-99); Potassium 4.1 mmol/L (3.5-5.1); Sodium 140 mmol/L (135-145); eGFR 10.95
[2024-05-09 11:54] LABS: Glucose - Point of Care 94 mg/dl (70-99)
[2024-05-09] MEDS: EFFEXOR XR 37.5 MG PO (11:56)
--- NOTE | 2024-05-09 12:56 | CON.MD ---
Consultation - Medical
-
patient seen chart reviewed. case discussed with nursing and with dr ballesteros. was at the bedside. the patient is an 83 year old man with hx end stage renal failure who has not been on dialysis since november. at this moment he is rethinking his
decision and may consent to dialysis as he feels he may have more life to life. does seem to support this decision. he does understand that dialysis is necessary if he is to continue to remain alive and that he will without it. he is
fully oriented today. he was pleasantly interactive. nursing told me he had refused brain scan to r/o bleed. he is here bc of a fall. i explained to him in detail why it might be prudent to have the scan given the fall and why elderly are at
increased risk for brain bleed and he did agree to the scan. he denies that he is depressed currently although he is taking wellbutrin 100 mg tid and effexor 37.5 mg daily. his energy is not great given his medical illnesses. he said he does
notice even his voice feels weak and we discussed the impact of his illnesses upon his strength and vitality and the fact that at admit his o2 sats were low and there was some ? pulmonary edema . we also discussed that he is quite anemic.
past psych hx see above patient being rx for depression. he has not been hospitalized psychiatrically and is not in therapy
medical hx esrd cr 4.9 anemia hgb 8.4 qtc 480 hx cachexia weight 114 chf htn hld hypothyroid dm bph skin ca hx turp esophageal dilation moh's surgery
fh non contributory
substance abuse none
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
mse alert 0x3 knows trump running and mleodie is president. could tell me the other person running is a woman. thought process seemed goal oriented no psychosis affect appropriate mood is neutral not suicidal no psychosis aver intellgence insight
judgment fair
dx unspecified depression by hx i did not feel patient appeared to be particularly depressed currently although his situation is one that would contribute to dysphoria and anxiety
recommendations communicated to [facility] and dr ballesteros that patient now accepting of brain scan and is leaning towards resumption of dialysis. clearance of wellbutrin while metabolized primarily by liver is much reduced with renal failure. cut dose
to bid. would consider further decrease to q day given it inc risk of sz. clearance of effexor to can be inhibited w renal failure however this is a low dose and was left as is. i do see patient as having capacity to make his own medical decisions.
[2024-05-09] MEDS: FERRLECIT 110 MG IV (13:26)
--- NOTE | 2024-05-09 15:26 | PTCARENOTE ---
patient transferred from [facility] via bed. aaox3, denies pain, 4L NC maintained, no sob at rest, +MYRICK, vss, telemetry, at bedside, will continue to monitor.
--- NOTE | 2024-05-09 15:35 | PTCARENOTE ---
pt transferred to room 330. belongings sent with the pt. at the bedside updated. report given to YARA Newman.
[2024-05-09 15:43] LABS: Glucose - Point of Care 117 mg/dl (70-99)
--- NOTE | 2024-05-09 15:47 | CM ---
Pt lives with Amalia .
Spoke with Amalia at bedside.
She said she may be interested in VN at mo.
She cares for pt at home.
[employer] given to apply for school childcare attendant waiver.
On Med sitter.
Requested PT OT order form .
PLAN Awaiting PT OT evals
[2024-05-09 18:52] LABS: Hepatitis B Surface Antigen Negative (Negative)
[2024-05-09 19:11] LABS: Hepatitis B Core Ab, Total Negative (Negative); Hepatitis B Surface Antibody Positive; Hepatitis C Antibody Negative (Negative)
[2024-05-09] MEDS: CARDURA 4 MG PO (21:00)
[2024-05-09] MEDS: LIPITOR 10 MG PO (21:01)
[2024-05-09 21:55] LABS: Glucose - Point of Care 131 mg/dl (70-99)
[2024-05-10 03:45] VITALS: BP 129/69
[2024-05-10] MEDS: SYNTHROID 112 MCG PO (05:26)
[2024-05-10 06:00] VITALS: BMI 19.5
[2024-05-10 07:15] VITALS: BP 160/80
[2024-05-10 07:37] LABS: Glucose - Point of Care 82 mg/dl (70-99)
[2024-05-10 08:04] LABS: Hematocrit 23.8 % (39.0-52.0)
[2024-05-10] MEDS: MANNITOL 25% 12.5 GRAMS IV ×2 (08:10→09:03)
[2024-05-10 08:21] LABS: Blood Urea Nitrogen 86 mg/dl (9-20); Calcium 8.6 mg/dl (8.4-10.2); Carbon Dioxide 25 mmol/L (22-30); Chloride 103 mmol/L (98-107); Estimated Creatinine Clearance 8 ml/min; Glucose 80 mg/dl (70-99); Potassium 3.9 mmol/L (3.5-5.1); Sodium 141 mmol/L (135-145); eGFR 11.23
[2024-05-10] MEDS: RETACRIT 10000 UNITS IV (09:03)
--- NOTE | 2024-05-10 09:44 | W.PN.NEPH.HD ---
Assessment
-
Patient seen on dialysis
Systolic blood pressure 156 at current ultrafiltration
HD via right upper extremity AV fistula with good function 17-gauge needles used
Next dialysis will be tomorrow
Progress Note - Hemodialysis
-
Date of Service: May 10, 2024
Duration: 15 minutes and 2 hours
Potassium Bath: 3
Calcium Bath: 2.5
Opti-Dialyzer: 160
Ultrafiltration: Other (1kg)
Blood Flow: 400
Dialysate Flow: 600
Heparin: none
EPO: 10,000
[2024-05-10] MEDS: NOVOLOG FLEXPEN-LOW RESISTANCE SC ×3 (10:29→17:16)
[2024-05-10 10:44] VITALS: BP 158/83
[2024-05-10] MEDS: SODIUM BICARBONATE 1300 MG PO ×2 (11:22→21:02)
[2024-05-10] MEDS: ZYLOPRIM 100 MG PO (11:23)
[2024-05-10] MEDS: NORVASC 5 MG PO (11:23)
[2024-05-10] MEDS: VITAMIN D3 (cholecalciferol) 50 MCG PO (11:23)
[2024-05-10] MEDS: HEPARIN 5000 UNITS SC ×2 (11:23→21:02)
[2024-05-10] MEDS: PROSCAR 5 MG PO (11:23)
[2024-05-10] MEDS: LOPRESSOR 12.5 MG PO ×2 (11:23→21:02)
[2024-05-10] MEDS: WELLBUTRIN REGULAR RELEASE 100 MG PO ×2 (11:23→21:02)
[2024-05-10] MEDS: LASIX 80 MG IV (11:24)
[2024-05-10 11:25] LABS: Glucose - Point of Care 85 mg/dl (70-99)
--- NOTE | 2024-05-10 12:35 | W.PN.UPDATE ---
Update Note
Progress Note Update
patient seen chart reviewed. discussed w nursing. patient had dialysis today. i asked him if he were feeling comfortable with his decision. he indicated yes. he told me his son told him he would have about 'two weeks' without it and he wanted to be
on earth a bit longer. i explained to him what i had done with his antidepressants and wrote it out for him. he does not appear depressed today. it is too soon to see an impact from the decrease in wellbutrin. i would consider whether to decrease
it further in the future perhaps a couple of weeks from now. the issue w wellbutrin is inc risk for sz. psych will sign off at this point.
[2024-05-10] MEDS: FERRLECIT 110 MG IV (12:49)
[2024-05-10] MEDS: EFFEXOR XR 37.5 MG PO (12:49)
--- NOTE | 2024-05-10 14:03 | CM ---
Spoke with patient and spouse bedside re d/c planning.
PT/OT recommending skilled rehab vs home with PT.
Per patient and spouse they would like home with outpatient HD.
Patient was on outpatient HD in the past, was with [facility] then switched to be closer to son/market superintendent at [facility]- Dr Galen Green.
Patient would like to return to [facility] as [place] is [place] too far.
Referral placed via [facility], spoke with rep from [facility] and referral received via [facility] and being reviewed.
HD sheets are not in chart yet and will need to be attached to [facility].
Chair times are available at [facility], however not sure how many days per week patient will require HD.
Will discuss VN with patient and spouse.
Plan is for HD again tomorrow.
Plan: home with possible VN, and outpatient HD once arranged.
--- NOTE | 2024-05-10 15:02 | W.PN.HOSP.TC ---
Today's Communication/Plan
-
Continue Dialysis
Discussed with nephrology, patient needs 3 days in the hospital, next dialysis session tomorrow, patient not ready for discharge yet
Assessment / Plan
Assessment / Plan
Physical Exam
General: Not in acute distress.
Respiratory: CTAB.
Cardiac: Regular Rhythm and S1/S2
GI: Soft. Nontender. Positive bowel sounds.
Musculoskeletal: No Edema, no cyanosis
Neuro: AO x 3
Psych: Calm

Echocardiogram Results (as per laboratory sample carrier's report)
'CONCLUSIONS
Normal biventricular size and systolic function without regional wall motion
abnormality.
Thickened mitral valve leaflets. Mitral annular calcification. Mild mitral
regurgitation.
Trileaflet aortic valve. Thickened aortic valve without stenosis.
No prior study available for comparison.'

Assessment/Plan
Presentation with Shortness of Breath
Acute hypoxic respiratory insufficiency suspected secondary to pulmonary interstitial edema
-Suspected this is secondary to renal disease
-Echocardiogram
-Continue IV Lasix 80 mg daily
Fall on 05/09/24
-Checked CT Head and CT C-spine: no fractures or hemorrhage
-Continue neurochecks
Acute interstitial edema suspected secondary to fluid overload from lack of hemodialysis. Echo not suggestive of CHF. Improving wt and symptom. CW Lasix IV. Appreciate nephrology input.
Doubt infectious -neg procalcitonin ; it has good negative predictive value. Patient with no infective symptoms of sore throat, cough, fever or chills. Neg flu and COVID testing. Continue to hold empiric antibiotics. Consider thoracentesis if no
improvement with diuresis. Following chest x-ray with diuresis: overall improving.
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 No hyperkalemia. Metabolic acidosis noted. Creatinine 4.5 which is not significantly higher. Follow I&O's and weights daily. Continue oral bicarbonate. Patient
and his family confirmed on May 09, 2024 that patient wants dialysis now. Dialysis for 05/10/24. Appreciate psychiatry evaluation -- patient has decision-making capacity.
Psychiatry decreased patient's Wellbutrin due to concern over seizure threshold; appreciate psychiatry evaluation and recommendations.
Hypertension-continue the home medication and follow
Chronic anemia-hemoglobin 7.8. Patient is getting Aranesp as outpatient. Continue to follow.
Diabetes mellitus-diet controlled. cw sliding scale insulin.
DVT Prophylaxis: Heparin Subq
CODE STATUS-DNR/DNI. On May 09, 2024, I confirmed with the patient, his Amalia, and his son Dr. Aaron geraldine, that patient is DNR/DNI.
On May 09, 2024, I discussed patient's case with patient's , patient at bedside, and patient's son Galen over the phone. All questions and concerns were answered to satisfaction.
Anticipated Discharge: > 48 hours
Subjective/Interval History
-
Date of Service: May 10, 2024
Patient was seen and examined. He denied any chest pain, shortness of breath, leg pain or swelling or any other symptoms or complaints.
Objective Data
-
Labs:
Laboratory Results
05/10/24
07:24
Hgb 8.0 L
Hct 23.8 L
Sodium 141
Potassium 3.9
Chloride 103
Carbon Dioxide 25
BUN 86 H
Creatinine 4.8 H*
Glucose 80
Calcium 8.6
Vital Signs:
Vital Signs
Temp Pulse Resp BP Pulse Ox
97.6 F 65 16 158/83 95
05/10/24 10:44 05/10/24 10:44 05/10/24 10:44 05/10/24 10:44 05/10/24 10:44
I&O
05/09/24 05/10/24 05/11/24
06:59 06:59 06:59
Intake Total 1860 / 1860 420 / 420
Output Total 1630 / 1630 100 / 100
Balance 230 / 230 320 / 320
[2024-05-10 15:08] VITALS: BP 147/78
[2024-05-10 17:05] LABS: Glucose - Point of Care 132 mg/dl (70-99)
[2024-05-10 19:38] VITALS: BP 141/75
[2024-05-10] MEDS: LIPITOR 10 MG PO (21:01)
[2024-05-10] MEDS: CARDURA 4 MG PO (21:02)
[2024-05-10 21:29] LABS: Glucose - Point of Care 142 mg/dl (70-99)
[2024-05-11] VITALS (8 sets, daily range): BP systolic 84–152; BP diastolic 43–84; PULSE 55–68; O2SAT 90; BMI 18.8
--- NOTE | 2024-05-11 05:42 | PTCARENOTE ---
Pt took off heart monitor leads. Upon entering the room, he had taken his 4L NC off and refused to put it back on. Earlier, his pulse ox had been 85% on RA. Re-checked his pulse ox and it was between 89-92%. Pt declined to put on oxygen until his
'son-in-law arrived'. With coaxing, pt agreeable to have heart monitor back on. Will continue to monitor.
[2024-05-11] MEDS: SYNTHROID PO (05:53)
--- NOTE | 2024-05-11 06:27 | PTCARENOTE ---
Pt refusing hemodialysis treatment. Pt stated 'I don't want anything done until we talk to my son-in-law.' When asked about what we would be talking to his son-in-law about, pt stated 'I don't know.' HD nurse will try again later today. [place] text
sent to Circular Head Saw Operator.
[2024-05-11] MEDS: LOPRESSOR 12.5 MG PO ×2 (08:52→20:18)
[2024-05-11] MEDS: PROSCAR 5 MG PO (08:52)
[2024-05-11] MEDS: HEPARIN SC ×2 (08:53→09:08)
[2024-05-11] MEDS: WELLBUTRIN REGULAR RELEASE 100 MG PO ×2 (08:53→20:18)
[2024-05-11] MEDS: VITAMIN D3 (cholecalciferol) 50 MCG PO (08:53)
[2024-05-11] MEDS: ZYLOPRIM 100 MG PO (08:53)
[2024-05-11] MEDS: NORVASC 5 MG PO (08:53)
[2024-05-11] MEDS: SODIUM BICARBONATE 1300 MG PO ×2 (08:53→20:18)
[2024-05-11] MEDS: LASIX 80 MG IV (08:54)
[2024-05-11] MEDS: NOVOLOG FLEXPEN-LOW RESISTANCE SC ×3 (09:07→17:03)
--- NOTE | 2024-05-11 09:57 | PTCARENOTE ---
pt sitting on side of bed. states no pain. oriented to self and place. confused about current condition and plan of care. was refusing all meds HD removed tele monitor and accu checks. stating he will wait for his son to come and bring him home.
DR Meléndez and DR Tadeo made aware. I updated pt son and he came in to speak with pt. pt now agreeing to take meds wear tele monitor and receive HD.
[2024-05-11 11:46] LABS: Glucose - Point of Care 96 mg/dl (70-99)
[2024-05-11 11:58] LABS: % Basophils 0.3 % (0-2); % Eosinophils 1.1 % (0-6); % Immature Granulocytes 0.4 % (0-0.5); % Monocytes 11.7 % (1.7-9.3); % Neutrophils 70.5 % (42.2-75.2); Absolute Eosinophils 0.1 10^3/uL (0-0.7); Absolute Lymphocytes 1.2 10^3/uL (1.2-3.4); Absolute Monocytes 0.9 10^3/uL (0.1-0.6); Absolute Neutrophils 5.2 10^3/uL (1.4-6.5); Hematocrit 27.6 % (39.0-52.0); Hemoglobin 9.3 g/dL (13.0-18.0); Mean Corp Hgb Conc. 33.7 g/dL (33.0-37.0); Mean Corpuscular Hgb 32.7 pg (27.0-31.0); Mean Corpuscular Volume 97.2 fL (80.0-94.0); Mean Platelet Volume 10.1 fL (7.4-10.4); Nucleated Red Blood Cells % 0 % (-); Platelet Count 160 10^3/uL (130-400); Red Blood Cell Count 2.84 10^6/uL (4.70-6.10); Red Cell Dist. Width 16.2 % (11.5-14.5); White Blood Cell Count 7.4 10^3/uL (4.8-10.8)
[2024-05-11] MEDS: MANNITOL 25% 12.5 GRAMS IV ×2 (12:00→13:00)
[2024-05-11 12:08] LABS: Blood Urea Nitrogen 56 mg/dl (9-20); Calcium 8.6 mg/dl (8.4-10.2); Carbon Dioxide 28 mmol/L (22-30); Chloride 98 mmol/L (98-107); Estimated Creatinine Clearance 10 ml/min; Glucose 95 mg/dl (70-99); Potassium 3.6 mmol/L (3.5-5.1); Sodium 139 mmol/L (135-145); eGFR 13.97
--- NOTE | 2024-05-11 12:26 | PN.CDI ---
CDI
- -
CDI:
Physician Documentation Request
Admit Date: 05/06/24 17:57
Dear Doctor Carlyle,
Patient admitted for pulmonary edema.
H&P: 'He initially was short of breath on exertion now even at rest. When ambulance checked on him he was hypoxic to 84% on room air.'
Selected Entries
05/06/24
16:34 05/07/24
07:35 05/07/24
12:01
Nasal Cannula flow liters per minute 6 6 6
05/07/24
19:30 05/08/24
11:28 05/09/24
08:00
Nasal Cannula flow liters per minute 5 5 5
Clarify which of the following accurately represents the patient's respiratory status:
Acute hypoxic respiratory failure, POA
Hypoxia
Other
Additional information for Respiratory Failure:
Recognized criteria for Respiratory Failure (Source: [employer] Hospitalist May 2013)
ABGs: (1 or more) Symptoms Please indicate type if known
1. p)2 <60 or RA SPO2 <91% on RA 1. Tachypnea, SOB, dyspnea Hypoxic
2. pCO2 50 and pH <7.35 2. Use of accessory muscles Hypercapnic
3. pO2 decrease of pCO2 increase by 3. Pallor or cyanosis Hypoxic and Hypercapnic
10 mmHg from baseline if known 4. Anxiety or restlessness Unable to determine
5. Unable to speak in full sentences
Supplemental O2 of > 40% (5LPM) Intubation is not required
Use of terms such as suspected, likely, concern for, or probable (associated with a specific diagnosis that is being evaluated, monitored, or treated as if it exists) are acceptable and can be coded in the inpatient setting, when documented at the
time of discharge.
Thank you,
Esthela Juan RN, BSN
CDI Specialist
Available via [place] text
Please use your independent medical judgment in providing your response.
--- NOTE | 2024-05-11 12:30 | W.PN.NEPH.HD ---
Assessment
-
Seen on HD. no complaints. VSS access ok
Progress Note - Hemodialysis
-
Date of Service: May 11, 2024
Duration: 30 minutes and 2 hours
Potassium Bath: 3
Calcium Bath: 2.5
Opti-Dialyzer: 160
Ultrafiltration: Other (kg)
Blood Flow: 300
Dialysate Flow: 600
Heparin: no
EPO: no
--- NOTE | 2024-05-11 12:48 | CM ---
CM following re: discharge planning.
Reviewed pt's chart, met with pt.
Pt is aware he will get 2nd HD treatment today and pt is aware he will continue outpatient HD treatment at [facility] in [place].
CM spoke to [facility] RN Jia [phone] and she confirmed that pt will be accepted for outpatient HD treatment at [facility] and requested flow sheets faxed to provided fax: [phone].
PT and OT evaluations noted - SNF level of care recommended. Pt is aware and pt seems expressed no interest. CM spoke pt's son who is MD database analyst and he stated that his mother will not be able to care for him at home and he strongly suggested
SNF with HD onsite. Pt's son stated his mother and his sister will come to visit the pt today and they will encourage him top go to a SNF. A list of SNFs provided: [facility] SNF ot [facility] SNF preferred. A referral to [facility] SNF
and [facility] SNF made.
D/C pl;an; preferred SNF: [facility] SNF or [facility] SNF. Awaiting for determination.
CM will follow to assist pt with discharge to a preferred SNF.
[2024-05-11] MEDS: EFFEXOR XR 37.5 MG PO (14:53)
[2024-05-11 17:00] LABS: Glucose - Point of Care 121 mg/dl (70-99)
--- NOTE | 2024-05-11 17:50 | W.PN.HOSP.TC ---
Today's Communication/Plan
-
Continue dialysis
Assessment / Plan
Assessment / Plan
Physical Exam
General: Not in acute distress.
Respiratory: CTAB.
Cardiac: Regular Rhythm and S1/S2
GI: Soft. Nontender. Positive bowel sounds.
Musculoskeletal: No Edema, no cyanosis
Neuro: AO x 3
Psych: Calm

Echocardiogram Results (as per police officer's report)
'CONCLUSIONS
Normal biventricular size and systolic function without regional wall motion
abnormality.
Thickened mitral valve leaflets. Mitral annular calcification. Mild mitral
regurgitation.
Trileaflet aortic valve. Thickened aortic valve without stenosis.
No prior study available for comparison.'

Assessment/Plan
Presentation with Shortness of Breath
Acute hypoxic respiratory failure, POA, suspected secondary to pulmonary interstitial edema
-Suspected this is secondary to renal disease
-Echocardiogram
-Continue IV Lasix 80 mg daily
Fall on 05/09/24
-Checked CT Head and CT C-spine: no fractures or hemorrhage
-Continue neurochecks
Acute interstitial edema suspected secondary to fluid overload from lack of hemodialysis. Echo not suggestive of CHF. Improving wt and symptom. CW Lasix IV. Appreciate nephrology input.
Doubt infectious -neg procalcitonin ; it has good negative predictive value. Patient with no infective symptoms of sore throat, cough, fever or chills. Neg flu and COVID testing. Continue to hold empiric antibiotics. Consider thoracentesis if no
improvement with diuresis. Following chest x-ray with diuresis: overall improved.
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 No hyperkalemia. Metabolic acidosis noted. Creatinine 4.5 which is not significantly higher. Follow I&O's and weights daily. Continue oral bicarbonate. Patient
and his family confirmed on May 09, 2024 that patient wants dialysis now. Dialysis started 05/10/24. Appreciate psychiatry evaluation -- patient has decision-making capacity.
Psychiatry decreased patient's Wellbutrin due to concern over seizure threshold; appreciate psychiatry evaluation and recommendations.
Hypertension-continue the home medication and follow
Chronic anemia-hemoglobin 7.8. Patient is getting Aranesp as outpatient. Continue to follow.
Diabetes mellitus-diet controlled. cw sliding scale insulin.
DVT Prophylaxis: Heparin Subq
CODE STATUS-DNR/DNI. On May 09, 2024, I confirmed with the patient, his Amalia, and his son Dr. Galen Moeller, that patient is DNR/DNI.
On May 09, 2024, I discussed patient's case with patient's , patient at bedside, and patient's son Galen over the phone. All questions and concerns were answered to satisfaction.
On May 11, 2024, I spoke to patient's son inside patient's room as well as the patient.
Anticipated Discharge: 24 - 48 hours
Subjective/Interval History
-
Date of Service: May 11, 2024
Patient was seen and examined. He had a formed bowel movement last night. He denied any new symptoms or complaints.
Objective Data
-
Labs:
Laboratory Results
05/11/24
11:40
WBC 7.4
Hgb 9.3 L
Hct 27.6 L
Plt Count 160 D
Sodium 139
Potassium 3.6
Chloride 98
Carbon Dioxide 28
BUN 56 H
Creatinine 4.0 H
Glucose 95
Calcium 8.6
Vital Signs:
Vital Signs
Temp Pulse Resp BP Pulse Ox
97.6 F 68 16 123/81 98
05/11/24 15:12 05/11/24 15:12 05/11/24 15:12 05/11/24 15:12 05/11/24 15:12
I&O
05/10/24 05/11/24 05/12/24
06:59 06:59 06:59
Intake Total 420 / 420 1290 / 1290 720 / 720
Output Total 100 / 100 1300 / 1300 300 / 300
Balance 320 / 320 -10 / -10 420 / 420
[2024-05-11] MEDS: HEPARIN 5000 UNITS SC (20:17)
[2024-05-11] MEDS: CARDURA PO (22:45)
[2024-05-11] MEDS: LIPITOR PO (22:46)
--- NOTE | 2024-05-11 22:46 | PTCARENOTE ---
9071 pt angry and refusing to have blood glucose finger stick. Explained the reason behind checking sugars and patient states ' I don't check it at home at this time, so I am not checking it'. pt refused 10pm meds and refused mouth care. pt angry
and cursing.
[2024-05-12] VITALS (9 sets, daily range): BP systolic 91–160; BP diastolic 57–84; PULSE 61–64; O2SAT 98; BMI 18.5
--- NOTE | 2024-05-12 04:11 | PTCARENOTE ---
This RN assumed care of this pt at 0400 AM.
[2024-05-12] MEDS: SYNTHROID 112 MCG PO (05:37)
[2024-05-12 07:59] LABS: Glucose - Point of Care 92 mg/dl (70-99)
[2024-05-12] MEDS: NOVOLOG FLEXPEN-LOW RESISTANCE SC ×2 (08:20→16:17)
[2024-05-12] MEDS: SODIUM BICARBONATE 1300 MG PO ×2 (08:22→21:20)
[2024-05-12] MEDS: LASIX 80 MG IV (08:23)
[2024-05-12] MEDS: WELLBUTRIN REGULAR RELEASE 100 MG PO ×2 (08:27→21:21)
[2024-05-12] MEDS: VITAMIN D3 (cholecalciferol) 50 MCG PO (08:28)
[2024-05-12] MEDS: LOPRESSOR 12.5 MG PO ×2 (08:29→21:21)
[2024-05-12] MEDS: NORVASC 5 MG PO (08:31)
[2024-05-12] MEDS: PROSCAR 5 MG PO (08:33)
[2024-05-12] MEDS: HEPARIN 5000 UNITS SC ×2 (08:34→21:21)
[2024-05-12] MEDS: ZYLOPRIM 100 MG PO (08:38)
--- NOTE | 2024-05-12 10:37 | CM ---
CM following re: discharge planning.
Reviewed pt's chart.
Both [facility] and [facility] offered a bed. CM spoke to pt's son Karen Moeller and he preferred [facility] because it's closer for pt's spouse.
CM spoke to [facility] SNF liaison Celestino and he confirmed that pt's referral in under review and requested pt's clinical with Hep panel and flow sheets faxed to [facility] HD onsite unit at [phone].
CM faxed flow sheets for 2 days to [facility] for outpatient HD treatement [phone]
D/C plan: [facility] with onsite HD treatment. Awaiting for confirmation for accepting for SNF level of care and to HD onsite unit.
CM will follow to assist pt with discharge to [facility] and onsite HD treatment unit.
[2024-05-12 11:01] LABS: Hematocrit 32.2 % (39.0-52.0); Hemoglobin 10.5 g/dL (13.0-18.0); Mean Corp Hgb Conc. 32.6 g/dL (33.0-37.0); Mean Corpuscular Hgb 33.9 pg (27.0-31.0); Mean Corpuscular Volume 103.9 fL (80.0-94.0); Mean Platelet Volume 10.5 fL (7.4-10.4); Platelet Count 158 10^3/uL (130-400); Red Cell Dist. Width 15.9 % (11.5-14.5); White Blood Cell Count 7.3 10^3/uL (4.8-10.8)
[2024-05-12 11:18] LABS: Blood Urea Nitrogen 42 mg/dl (9-20); Calcium 8.9 mg/dl (8.4-10.2); Carbon Dioxide 29 mmol/L (22-30); Chloride 95 mmol/L (98-107); Estimated Creatinine Clearance 13 ml/min; Glucose 109 mg/dl (70-99); Potassium 3.6 mmol/L (3.5-5.1); Sodium 137 mmol/L (135-145); eGFR 19.74
[2024-05-12 11:31] LABS: Glucose - Point of Care 172 mg/dl (70-99)
[2024-05-12] MEDS: NOVOLOG FLEXPEN-LOW RESISTANCE 1 UNITS SC (12:33)
[2024-05-12] MEDS: EFFEXOR XR 37.5 MG PO (12:38)
[2024-05-12] MEDS: MANNITOL 25% 12.5 GRAMS IV (13:00)
[2024-05-12] MEDS: RETACRIT 10000 UNITS IV (13:01)
--- NOTE | 2024-05-12 13:45 | W.PN.NEPH.HD ---
Assessment
-
Seen on HD. no complaints. VSS, access ok
dc planning
Progress Note - Hemodialysis
-
Date of Service: May 12, 2024
Duration: 3 hours
Potassium Bath: 3
Calcium Bath: 2.5
Opti-Dialyzer: 160
Ultrafiltration: Other (kg)
Blood Flow: 400
Dialysate Flow: 600
Heparin: no
EPO: 59087 units
[2024-05-12 16:16] LABS: Glucose - Point of Care 80 mg/dl (70-99)
--- NOTE | 2024-05-12 16:51 | W.PN.HOSP.TC ---
Today's Communication/Plan
-
Dialysis
SNF placement pending
Assessment / Plan
Assessment / Plan
Physical Exam
General: Not in acute distress.
Respiratory: CTAB.
Cardiac: Regular Rhythm and S1/S2
GI: Soft. Nontender. Positive bowel sounds.
Musculoskeletal: No Edema, no cyanosis
Neuro: AO x 3
Psych: Calm

Echocardiogram Results (as per bible teacher's report)
'CONCLUSIONS
Normal biventricular size and systolic function without regional wall motion
abnormality.
Thickened mitral valve leaflets. Mitral annular calcification. Mild mitral
regurgitation.
Trileaflet aortic valve. Thickened aortic valve without stenosis.
No prior study available for comparison.'

Assessment/Plan
Presentation with Shortness of Breath
Acute hypoxic respiratory failure, POA, suspected secondary to pulmonary interstitial edema
-Suspected this is secondary to renal disease
-Echocardiogram
-Continue IV Lasix 80 mg daily
Fall on 05/09/24
-Checked CT Head and CT C-spine: no fractures or hemorrhage
-Continue neurochecks
Acute interstitial edema suspected secondary to fluid overload from lack of hemodialysis. Echo not suggestive of CHF. Improving wt and symptom. CW Lasix IV. Appreciate nephrology input.
Doubt infectious -neg procalcitonin ; it has good negative predictive value. Patient with no infective symptoms of sore throat, cough, fever or chills. Neg flu and COVID testing. Continue to hold empiric antibiotics. Consider thoracentesis if no
improvement with diuresis. Following chest x-ray with diuresis: overall improved.
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 No hyperkalemia. Metabolic acidosis noted. Creatinine 4.5 which is not significantly higher. Follow I&O's and weights daily. Continue oral bicarbonate. Patient
and his family confirmed on May 09, 2024 that patient wants dialysis now. Dialysis started 05/10/24. Appreciate psychiatry evaluation -- patient has decision-making capacity.
Psychiatry decreased patient's Wellbutrin due to concern over seizure threshold; appreciate psychiatry evaluation and recommendations.
Hypertension-continue the home medication and follow
Chronic anemia-hemoglobin 7.8. Patient is getting Aranesp as outpatient. Continue to follow.
Diabetes mellitus-diet controlled. cw sliding scale insulin.
DVT Prophylaxis: Heparin Subq
CODE STATUS-DNR/DNI. On May 09, 2024, I confirmed with the patient, his Amalia, and his son Dr. Galen Moeller, that patient is DNR/DNI.
On May 09, 2024, I discussed patient's case with patient's , patient at bedside, and patient's son Galen over the phone. All questions and concerns were answered to satisfaction.
On May 11, 2024, I spoke to patient's son inside patient's room as well as the patient.
Anticipated Discharge: 24 - 48 hours
Subjective/Interval History
-
Date of Service: May 12, 2024
Patient was seen and examined. He denied any chest pain, SOB or any other complaints.
Objective Data
-
Labs:
Laboratory Results
05/12/24
10:41
WBC 7.3
Hgb 10.5 L
Hct 32.2 L
Plt Count 158
Sodium 137
Potassium 3.6
Chloride 95 L
Carbon Dioxide 29
BUN 42 H
Creatinine 3.0 H
Glucose 109 H
Calcium 8.9
Vital Signs:
Vital Signs
Temp Pulse Resp BP Pulse Ox
97.7 F 57 20 106/65 97
05/12/24 15:21 05/12/24 15:21 05/12/24 15:21 05/12/24 15:21 05/12/24 15:21
I&O
05/11/24 05/12/24 05/13/24
06:59 06:59 06:59
Intake Total 1290 / 1290 720 / 720
Output Total 1300 / 1300 500 / 500
Balance -10 / -10 220 / 220
[2024-05-12] MEDS: CARDURA 4 MG PO (21:19)
[2024-05-12] MEDS: LIPITOR 10 MG PO (21:20)
[2024-05-12 21:31] LABS: Glucose - Point of Care 128 mg/dl (70-99)
[2024-05-13] MEDS: SYNTHROID 112 MCG PO (05:23)
[2024-05-13 06:00] VITALS: BMI 17.5
[2024-05-13 06:32] LABS: Blood Urea Nitrogen 29 mg/dl (9-20); Calcium 8.8 mg/dl (8.4-10.2); Carbon Dioxide 30 mmol/L (22-30); Chloride 96 mmol/L (98-107); Estimated Creatinine Clearance 12 ml/min; Glucose 82 mg/dl (70-99); Magnesium 1.8 mg/dl (1.6-2.3); Potassium 3.7 mmol/L (3.5-5.1); Sodium 136 mmol/L (135-145); eGFR 19.74
[2024-05-13 07:42] VITALS: BP 154/76
[2024-05-13 07:57] LABS: Glucose - Point of Care 86 mg/dl (70-99)
[2024-05-13] MEDS: NOVOLOG FLEXPEN-LOW RESISTANCE SC (09:00)
[2024-05-13] MEDS: SODIUM BICARBONATE 1300 MG PO ×2 (09:09→20:29)
[2024-05-13] MEDS: WELLBUTRIN REGULAR RELEASE 100 MG PO ×2 (09:09→20:29)
[2024-05-13] MEDS: PROSCAR 5 MG PO (09:09)
[2024-05-13] MEDS: LOPRESSOR 12.5 MG PO ×2 (09:09→20:30)
[2024-05-13] MEDS: VITAMIN D3 (cholecalciferol) 50 MCG PO (09:10)
[2024-05-13] MEDS: ZYLOPRIM 100 MG PO (09:10)
[2024-05-13] MEDS: NORVASC 5 MG PO (09:10)
[2024-05-13] MEDS: HEPARIN 5000 UNITS SC ×2 (09:11→20:29)
[2024-05-13] MEDS: LASIX 80 MG IV (09:11)
--- NOTE | 2024-05-13 09:40 | CM ---
CM following re: discharge planning.
Reviewed pt's chart, met with pt.
[facility] liaison Celestino confirmed that pt is accepted for admission to their SNF but they do not have a bed available and a bed will be available early next week.
CM spoke to [facility] director of corporate strategy Efrem [phone] and this CM confirmed that pt will go to [facility] with onsite HD treatment and a referral for outpatient HD treatment only fot a time while pt is at [facility].
[facility] sales representative wire rope Efrem is aware that pt will have outpatient HD treatment at [facility] when pt returns home after a short term rehab at [facility]. Requested form completed and faxed to [facility] corporate at [phone].
CM spoke to [facility] outpatient HD center YARA Ro [phone] and she confirmed that all necessary documentation has been received and pt is accepted for outpatient HD treatment at [facility]. YARA Ro is
notified that pt will go to [facility] and Jia stated that [facility] team excellent to communicate regarding pts discharges and she will follow up with [facility].
Both pt and his son are aware of the above.
D/C plan: [facility] when bed is available with outpatient HD treatment at [facility] onsite [facility] HD treatment.
CM will follow to assist pt with discharge to [facility] with onsite [facility] HD treatment.
--- NOTE | 2024-05-13 10:26 | W.PN.NEPH.PH ---
Today's Communication / Plan
-
Hd tomorrow
Assessment/Plan
-
Assessment
CKD 5
Metabolic acidosis
Hypertension
Shortness of breath
Pulmonary edema
BPH
Anemia, on Aranesp
Plan
-next dialysis planned for tomorrow,orders provided
-TARUN and iron for Anemia
-will plan on discharge next week likely to [facility] on TTS schedule
-
-
Date of Service: May 13, 2024
CC / HPI / ROS
-
Chief Complaint:
CKD5
History of Present Illness:
ESRD now on TTS
hemodynamically stable
Review of Systems:
no CP
mild SOB,
weights down
Labs
-
Labs:
WBC 7.3 10^3/uL (4.8-10.8) 05/12/24 10:41
RBC 3.10 10^6/uL (4.70-6.10) L 05/12/24 10:41
Hgb 10.5 g/dL (13.0-18.0) L 05/12/24 10:41
Hct 32.2 % (39.0-52.0) L 05/12/24 10:41
Plt Count 158 10^3/uL (130-400) 05/12/24 10:41
Sodium 136 mmol/L (135-145) 05/13/24 05:46
Potassium 3.7 mmol/L (3.5-5.1) 05/13/24 05:46
Chloride 96 mmol/L (98-107) L 05/13/24 05:46
Carbon Dioxide 30 mmol/L (22-30) 05/13/24 05:46
BUN 29 mg/dl (9-20) H 05/13/24 05:46
Creatinine 3.0 mg/dL (0.7-1.3) H 05/13/24 05:46
eGFR 19.74 05/13/24 05:46
Glucose 82 mg/dl (70-99) 05/13/24 05:46
Calcium 8.8 mg/dl (8.4-10.2) 05/13/24 05:46
Vkd-Q-Efysikobpqc Pept 29192 pg/ml 05/06/24 16:40
Albumin 3.3 g/dl (3.5-5.0) L 05/06/24 16:40
Physical Exam
-
Vital Signs:
Vital Signs
Temp Pulse Resp BP Pulse Ox
97.6 F 60 18 154/76 96
05/13/24 07:42 05/13/24 07:42 05/13/24 07:42 05/13/24 07:42 05/13/24 07:42
Cardiovascular:: Regular rate and rhythm
Respiratory:: Bilateral: Coarse and Bilateral: Rales
Lung Excursion:: Normal
Abdomen:: Nontender and Soft
Bowel Sounds:: Normal
Extremity Edema:: None: Bilateral:
[2024-05-13 12:06] LABS: Glucose - Point of Care 155 mg/dl (70-99)
[2024-05-13] MEDS: EFFEXOR XR 37.5 MG PO (12:08)
[2024-05-13] MEDS: NOVOLOG FLEXPEN-LOW RESISTANCE 1 UNITS SC ×2 (13:15→17:54)
[2024-05-13 14:59] VITALS: BP 111/68; BP 80/49; BP 93/60; PULSE 69; O2SAT 95
--- NOTE | 2024-05-13 15:01 | PTCARENOTE ---
at 1459. Physical therapy just worked with patient and reported, patient's b/p lying was 111/68, 93/60 sitting and standing 80/49,c/o lightheadedness and unsteadiness. patient sitting in reclining chair and symptoms resolved, b/p 102/[address] Sanchez and Dr. Tadeo tt and made aware. Dr. Sanchez will put Doxazosin on hold, will continue to monitor.
--- NOTE | 2024-05-13 15:09 | W.PN.HOSP.TC ---
Today's Communication/Plan
-
Orthostatic hypotension - Nephrology updated and mentioned they will adjust his edw and hold patient's Doxazosin
Dialysis tomorrow
Assessment / Plan
Assessment / Plan
Physical Exam
General: Not in acute distress.
Respiratory: CTAB.
Cardiac: Regular Rhythm and S1/S2
GI: Soft. Nontender. Positive bowel sounds.
Musculoskeletal: No Edema, no cyanosis
Neuro: AO x 3
Psych: Calm

Echocardiogram Results (as per acoustical tile drill press operator's report)
'CONCLUSIONS
Normal biventricular size and systolic function without regional wall motion
abnormality.
Thickened mitral valve leaflets. Mitral annular calcification. Mild mitral
regurgitation.
Trileaflet aortic valve. Thickened aortic valve without stenosis.
No prior study available for comparison.'

Assessment/Plan
Presentation with Shortness of Breath
Acute hypoxic respiratory failure, POA, suspected secondary to pulmonary interstitial edema
-Suspected this is secondary to renal disease
-Echocardiogram
-Continue IV Lasix 80 mg daily
Fall on 05/09/24
-Checked CT Head and CT C-spine: no fractures or hemorrhage
-Continue neurochecks
Acute interstitial edema suspected secondary to fluid overload from lack of hemodialysis. Echo not suggestive of CHF. Improving wt and symptom. CW Lasix IV. Appreciate nephrology input.
Doubt infectious -neg procalcitonin ; it has good negative predictive value. Patient with no infective symptoms of sore throat, cough, fever or chills. Neg flu and COVID testing. Continue to hold empiric antibiotics. Consider thoracentesis if no
improvement with diuresis. Following chest x-ray with diuresis: overall improved.
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 No hyperkalemia. Metabolic acidosis noted. Creatinine 4.5 which is not significantly higher. Follow I&O's and weights daily. Continue oral bicarbonate. Patient
and his family confirmed on May 09, 2024 that patient wants dialysis now. Dialysis started 05/10/24. Appreciate psychiatry evaluation -- patient has decision-making capacity.
Psychiatry decreased patient's Wellbutrin due to concern over seizure threshold; appreciate psychiatry evaluation and recommendations.
Hypertension
Orthostatic Hypotension -- On May 13, 2024, physical therapist worked with patient and reported, patient's blood pressure lying down was 111/68, upon ambulating dropped to 93/60 and c/o lightheadedness and unsteadiness. Then rechecked still
standing and was 80/49. patient sitting in reclining chair and symptoms resolved, b/p 102/70 after. Patient denied chest pain, SOB or abdominal pain. Nephrology updated and mentioned they will adjust his edw and hold patient's Doxazosin.
Chronic anemia-hemoglobin 7.8. Patient is getting Aranesp as outpatient. Continue to follow.
Diabetes mellitus-diet controlled. cw sliding scale insulin.
DVT Prophylaxis: Heparin Subq
CODE STATUS-DNR/DNI. On May 09, 2024, I confirmed with the patient, his Amalia, and his son Dr. Aaron geraldine, that patient is DNR/DNI.
On May 09, 2024, I discussed patient's case with patient's , patient at bedside, and patient's son Galen over the phone. All questions and concerns were answered to satisfaction.
On May 11, 2024, I spoke to patient's son inside patient's room as well as the patient.
Anticipated Discharge: > 48 hours
Subjective/Interval History
-
Date of Service: May 13, 2024
Patient was seen and examined. He denied any symptoms or complaints, denied any chest pain or shortness of breath. He did have symptomatic orthostatic hypotension later in the day however.
Objective Data
-
Labs:
Laboratory Results
05/13/24
05:46
Sodium 136
Potassium 3.7
Chloride 96 L
Carbon Dioxide 30
BUN 29 H
Creatinine 3.0 H
Glucose 82
Calcium 8.8
Vital Signs:
Vital Signs
Temp Pulse Resp BP Pulse Ox
97.6 F 60 18 154/76 96
05/13/24 07:42 05/13/24 07:42 05/13/24 07:42 05/13/24 07:42 05/13/24 09:11
I&O
05/12/24 05/13/24 05/14/24
06:59 06:59 06:59
Intake Total 720 / 720 960 / 960
Output Total 500 / 500 400 / 400
Balance 220 / 220 560 / 560
[2024-05-13 15:17] VITALS: BP 102/70
[2024-05-13 16:49] LABS: Glucose - Point of Care 184 mg/dl (70-99)
[2024-05-13 21:22] LABS: Glucose - Point of Care 223 mg/dl (70-99)
[2024-05-13] MEDS: LIPITOR 10 MG PO (21:59)
[2024-05-13 23:25] VITALS: BP 114/67
[2024-05-14 06:00] VITALS: BMI 18.0
[2024-05-14] MEDS: SYNTHROID 112 MCG PO (06:10)
[2024-05-14 09:42] LABS: Glucose - Point of Care 110 mg/dl (70-99)
[2024-05-14] MEDS: HEPARIN SC (09:43)
[2024-05-14] MEDS: NOVOLOG FLEXPEN-LOW RESISTANCE SC (09:43)
[2024-05-14] MEDS: PROSCAR PO (09:44)
[2024-05-14] MEDS: VITAMIN D3 (cholecalciferol) PO (09:44)
[2024-05-14] MEDS: SODIUM BICARBONATE PO (09:44)
[2024-05-14] MEDS: ZYLOPRIM PO (09:44)
--- NOTE | 2024-05-14 09:45 | W.PN.HOSP.TC ---
Today's Communication/Plan
-
Dialysis today
Appreciate patient's family's assistance in speaking with the patient
Discharge planning
Assessment / Plan
Assessment / Plan
Physical Exam
General: Not in acute distress.
Respiratory: CTAB.
Cardiac: Regular Rhythm and S1/S2
GI: Soft. Nontender. Positive bowel sounds.
Musculoskeletal: No Edema, no cyanosis
Neuro: AO x 3
Psych: Calm

Echocardiogram Results (as per ship worker's report)
'CONCLUSIONS
Normal biventricular size and systolic function without regional wall motion
abnormality.
Thickened mitral valve leaflets. Mitral annular calcification. Mild mitral
regurgitation.
Trileaflet aortic valve. Thickened aortic valve without stenosis.
No prior study available for comparison.'

Assessment/Plan
Presentation with Shortness of Breath
Acute hypoxic respiratory failure, POA, suspected secondary to pulmonary interstitial edema
-Suspected this is secondary to renal disease
-Echocardiogram results noted
-Continue IV Lasix 80 mg daily
Fall on 05/09/24
-Checked CT Head and CT C-spine: no fractures or hemorrhage
-Continue neuro-checks
Acute interstitial edema suspected secondary to fluid overload from lack of hemodialysis. Echo not suggestive of CHF. Improving wt and symptom. CW Lasix IV. Appreciate nephrology input.
Doubt infectious -neg procalcitonin ; it has good negative predictive value. Patient with no infective symptoms of sore throat, cough, fever or chills. Neg flu and COVID testing. Continue to hold empiric antibiotics. Consider thoracentesis if no
improvement with diuresis. Following chest x-ray with diuresis: overall improved.
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 No hyperkalemia. Metabolic acidosis noted. Creatinine 4.5 which is not significantly higher. Follow I&O's and weights daily. Continue oral bicarbonate. Patient and
his family confirmed on May 09, 2024 that patient wants dialysis now. Dialysis started 05/10/24. Appreciate psychiatry evaluation -- patient has decision-making capacity.
Psychiatry decreased patient's Wellbutrin due to concern over seizure threshold; appreciate psychiatry evaluation and recommendations.
Hypertension
Orthostatic Hypotension -- On May 13, 2024, physical therapist worked with patient and reported, patient's blood pressure lying down was 111/68, upon ambulating dropped to 93/60 and c/o lightheadedness and unsteadiness. Then rechecked still
standing and was 80/49. patient sitting in reclining chair and symptoms resolved, b/p 102/70 after. Patient denied chest pain, SOB or abdominal pain. Nephrology updated and mentioned they will adjust his edw and hold patient's Doxazosin.
Chronic anemia-hemoglobin 7.8. Patient is getting Aranesp as outpatient. Continue to follow.
Diabetes mellitus-diet controlled. cw sliding scale insulin.
DVT Prophylaxis: Heparin Subq
CODE STATUS-DNR/DNI. On May 09, 2024, I confirmed with the patient, his Amalia, and his son Dr. Aaron geraldine, that patient is DNR/DNI.
On May 09, 2024, I discussed patient's case with patient's , patient at bedside, and patient's son Galen over the phone. All questions and concerns were answered to satisfaction.
On May 11, 2024, I spoke to patient's son inside patient's room as well as the patient.
On May 14, 2024, I spoke to patient's son who said he will come into the hospital to convince patient to get dialysis.
Anticipated Discharge: 24 - 48 hours
Subjective/Interval History
-
Date of Service: May 14, 2024
Patient was seen and examined. Earlier in the morning, he refused all of his medications, dialysis and vital signs. Later in the day, he agreed to get dialysis. He denied any dizziness, chest pain, SOB or any other new symptoms.
Objective Data
-
Labs:
Laboratory Results
05/14/24
07:00
Hgb Pending
Hct Pending
Sodium Pending
Potassium Pending
Chloride Pending
Carbon Dioxide Pending
BUN Pending
Creatinine Pending
Glucose Pending
Calcium Pending
Vital Signs:
Vital Signs
Temp Pulse Resp BP Pulse Ox
97.4 F 62 17 114/67 98
05/13/24 23:25 05/13/24 23:25 05/13/24 23:25 05/13/24 23:25 05/13/24 23:25
I&O
05/13/24 05/14/24 05/15/24
06:59 06:59 06:59
Intake Total 960 / 960 660 / 660
Output Total 400 / 400 700 / 700
Balance 560 / 560 -40 / -40
[2024-05-14] MEDS: MANNITOL 25% 12.5 GRAMS IV ×2 (11:55→13:50)
[2024-05-14 12:03] LABS: Hematocrit 31.2 % (39.0-52.0); Hemoglobin 10.2 g/dL (13.0-18.0)
[2024-05-14] MEDS: LOPRESSOR PO (12:12)
[2024-05-14] MEDS: NORVASC PO (12:13)
[2024-05-14] MEDS: WELLBUTRIN REGULAR RELEASE PO (12:13)
[2024-05-14] MEDS: NOVOLOG FLEXPEN-LOW RESISTANCE 1 UNITS SC (12:13)
[2024-05-14] MEDS: LASIX IV (12:15)
--- NOTE | 2024-05-14 12:15 | PTCARENOTE ---
PT agitated belligerent, yelling and making fists at me. Pt very angry that he is getting HD and refused AM HD, all his medicataions, BS checks all his vitals. I re approached the patient every fifteen minutes to ask him if he would let me take his
sugar vitals or take medications; He told me now. However, at 11 am HD nurse came in and he allowed her to begin.
[2024-05-14 12:17] LABS: Glucose - Point of Care 167 mg/dl (70-99)
[2024-05-14 12:18] VITALS: BP 122/64
[2024-05-14 12:24] LABS: Blood Urea Nitrogen 57 mg/dl (9-20); Calcium 8.8 mg/dl (8.4-10.2); Carbon Dioxide 28 mmol/L (22-30); Chloride 95 mmol/L (98-107); Estimated Creatinine Clearance 7 ml/min; Glucose 172 mg/dl (70-99); Potassium 3.6 mmol/L (3.5-5.1); Sodium 138 mmol/L (135-145); eGFR 9.97
--- NOTE | 2024-05-14 12:31 | W.PN.NEPH.HD ---
Assessment
-
Patient seen on HD
initially refused HD but now resting comfortably on HD
sbp 92 at u/f 0.5kg
d/c'd IV lasix and doxazosin(patient was orthostatic yesterday)
will hold off pushing u/f (EDW may be achieved or too much)
d/c sodium bicarbonate now that patient is on HD
Progress Note - Hemodialysis
-
Date of Service: May 14, 2024
Duration: 3 hours
Potassium Bath: 3
Calcium Bath: 2.5
Ultrafiltration: Other (.5kg as tolerated)
Blood Flow: 400
Dialysate Flow: 600
Heparin: none
EPO: 4000
[2024-05-14] MEDS: RETACRIT 8000 UNITS IV (12:59)
[2024-05-14] MEDS: EFFEXOR XR 37.5 MG PO (15:47)
[2024-05-14 16:39] VITALS: BP 115/69
[2024-05-14] MEDS: NOVOLOG FLEXPEN-LOW RESISTANCE 3 UNITS SC (17:55)
[2024-05-14 18:00] LABS: Glucose - Point of Care 261 mg/dl (70-99)
[2024-05-14] MEDS: HEPARIN 5000 UNITS SC (20:51)
[2024-05-14] MEDS: LOPRESSOR 12.5 MG PO (20:51)
[2024-05-14] MEDS: LIPITOR 10 MG PO (20:51)
[2024-05-14] MEDS: WELLBUTRIN REGULAR RELEASE 100 MG PO (20:51)
[2024-05-14 21:36] LABS: Glucose - Point of Care 140 mg/dl (70-99)
[2024-05-14 23:23] VITALS: BP 123/78
[2024-05-15 06:00] VITALS: BMI 18.1
[2024-05-15 06:04] LABS: % Basophils 0.6 % (0-2); % Eosinophils 1.4 % (0-6); % Immature Granulocytes 0.7 % (0-0.5); % Lymphocytes 24.6 % (20.5-51.1); % Monocytes 12.6 % (1.7-9.3); % Neutrophils 60.1 % (42.2-75.2); Absolute Basophils 0.1 10^3/uL (0-0.2); Absolute Eosinophils 0.1 10^3/uL (0-0.7); Absolute Immature Granulocytes 0.1 10^3/uL (0-0.05); Absolute Lymphocytes 2.4 10^3/uL (1.2-3.4); Absolute Monocytes 1.2 10^3/uL (0.1-0.6); Absolute Neutrophils 5.8 10^3/uL (1.4-6.5); Hematocrit 32.2 % (39.0-52.0); Hemoglobin 10.3 g/dL (13.0-18.0); Mean Corpuscular Hgb 33.3 pg (27.0-31.0); Mean Corpuscular Volume 104.2 fL (80.0-94.0); Mean Platelet Volume 10.6 fL (7.4-10.4); Nucleated Red Blood Cells % 0 % (-); Platelet Count 151 10^3/uL (130-400); Red Blood Cell Count 3.09 10^6/uL (4.70-6.10); Red Cell Dist. Width 16.7 % (11.5-14.5); White Blood Cell Count 9.6 10^3/uL (4.8-10.8)
[2024-05-15] MEDS: SYNTHROID 112 MCG PO (06:08)
[2024-05-15 06:22] LABS: ALT (SGPT) 28 U/L (0-50); AST (SGOT) 45 U/L (17-59); Albumin 3.3 g/dl (3.5-5.0); Alkaline Phosphatase 146 U/L (38-126); Blood Urea Nitrogen 34 mg/dl (9-20); Calcium 8.8 mg/dl (8.4-10.2); Carbon Dioxide 31 mmol/L (22-30); Chloride 95 mmol/L (98-107); Estimated Creatinine Clearance 10 ml/min; Glucose 98 mg/dl (70-99); Magnesium 1.9 mg/dl (1.6-2.3); Potassium 3.6 mmol/L (3.5-5.1); Sodium 136 mmol/L (135-145); Total Bilirubin 0.5 mg/dl (0.2-1.3)
[2024-05-15 07:53] LABS: Glucose - Point of Care 90 mg/dl (70-99)
[2024-05-15 07:58] VITALS: BP 125/74
[2024-05-15] MEDS: NOVOLOG FLEXPEN-LOW RESISTANCE SC (08:49)
[2024-05-15] MEDS: LOPRESSOR 12.5 MG PO ×2 (08:56→20:12)
[2024-05-15] MEDS: NORVASC 5 MG PO (08:57)
[2024-05-15] MEDS: ZYLOPRIM 100 MG PO (08:57)
[2024-05-15] MEDS: WELLBUTRIN REGULAR RELEASE 100 MG PO ×2 (08:57→20:12)
[2024-05-15] MEDS: HEPARIN 5000 UNITS SC ×2 (08:57→20:11)
[2024-05-15] MEDS: PROSCAR 5 MG PO (08:58)
[2024-05-15] MEDS: VITAMIN D3 (cholecalciferol) 50 MCG PO (08:58)
--- NOTE | 2024-05-15 09:29 | W.PN.NEPH.PH ---
Today's Communication / Plan
-
next HD on Thursday
Assessment/Plan
-
Assessment
CKD 5
Metabolic acidosis
Hypertension
Shortness of breath
Pulmonary edema
BPH
Anemia, on Aranesp
Plan
-next dialysis planned
-TARUN and iron for Anemia
-will plan on discharge next week likely to [facility] on TTS schedule
-
-
Date of Service: May 15, 2024
CC / HPI / ROS
-
Chief Complaint:
CKD5
History of Present Illness:
ESRD now on TTS
hemodynamically stable
Review of Systems:
no CP
mild SOB,
weights down
Labs
-
Labs:
WBC 9.6 10^3/uL (4.8-10.8) 05/15/24 05:33
RBC 3.09 10^6/uL (4.70-6.10) L 05/15/24 05:33
Hgb 10.3 g/dL (13.0-18.0) L 05/15/24 05:33
Hct 32.2 % (39.0-52.0) L 05/15/24 05:33
Plt Count 151 10^3/uL (130-400) 05/15/24 05:33
Sodium 136 mmol/L (135-145) 05/15/24 05:33
Potassium 3.6 mmol/L (3.5-5.1) 05/15/24 05:33
Chloride 95 mmol/L (98-107) L 05/15/24 05:33
Carbon Dioxide 31 mmol/L (22-30) H 05/15/24 05:33
BUN 34 mg/dl (9-20) H 05/15/24 05:33
Creatinine 3.9 mg/dL (0.7-1.3) H 05/15/24 05:33
eGFR 14.40 05/15/24 05:33
Glucose 98 mg/dl (70-99) 05/15/24 05:33
Calcium 8.8 mg/dl (8.4-10.2) 05/15/24 05:33
Qui-Z-Xohwuhrnsnv Pept 65285 pg/ml 05/06/24 16:40
Albumin 3.3 g/dl (3.5-5.0) L 05/15/24 05:33
Physical Exam
-
Vital Signs:
Vital Signs
Temp Pulse Resp BP Pulse Ox
98.3 F 60 19 125/74 95
05/15/24 07:58 05/15/24 07:58 05/15/24 07:58 05/15/24 07:58 05/15/24 07:58
Cardiovascular:: Regular rate and rhythm
Respiratory:: Bilateral: Coarse
Lung Excursion:: Normal
Abdomen:: Nontender and Soft
Bowel Sounds:: Normal
Extremity Edema:: None: Bilateral:
--- NOTE | 2024-05-15 10:13 | W.PN.HOSP.TC ---
Today's Communication/Plan
-
Per case management, patient cannot be placed into facility until tomorrow
Continue dialysis as per nephrology
Assessment / Plan
Assessment / Plan
Physical Exam
General: Not in acute distress.
Respiratory: CTAB.
Cardiac: Regular Rhythm and S1/S2
GI: Soft. Nontender. Positive bowel sounds.
Musculoskeletal: No Edema, no cyanosis
Neuro: AO x 3
Psych: Calm

Echocardiogram Results (as per morning caregiver's report)
'CONCLUSIONS
Normal biventricular size and systolic function without regional wall motion
abnormality.
Thickened mitral valve leaflets. Mitral annular calcification. Mild mitral
regurgitation.
Trileaflet aortic valve. Thickened aortic valve without stenosis.
No prior study available for comparison.'

Assessment/Plan
Presentation with Shortness of Breath
Acute hypoxic respiratory failure, POA, suspected secondary to pulmonary interstitial edema
-Suspected this is secondary to renal disease
-Echocardiogram results noted
-Status post IV Lasix 80 mg daily -- now discontinued
Fall on 05/09/24
-Checked CT Head and CT C-spine: no fractures or hemorrhage
Acute interstitial edema suspected secondary to fluid overload from lack of hemodialysis. Echo not suggestive of CHF. Improving symptoms and weights improved overall. Appreciate nephrology input.
Doubt infectious - neg procalcitonin; it has good negative predictive value. Patient with no infective symptoms of sore throat, cough, fever or chills. Neg flu and COVID testing. Continue to hold empiric antibiotics. Consider thoracentesis if no
improvement with diuresis. Following chest x-ray with diuresis: overall improved.
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 No hyperkalemia. Metabolic acidosis noted. Creatinine 4.5 which is not significantly higher. Follow I&O's and weights daily. Continue oral bicarbonate. Patient and
his family confirmed on May 09, 2024 that patient wants dialysis now. Dialysis started 05/10/24. Appreciate psychiatry evaluation -- patient has decision-making capacity.
Psychiatry decreased patient's Wellbutrin due to concern over seizure threshold; appreciate psychiatry evaluation and recommendations.
Hypertension
Orthostatic Hypotension -- On May 13, 2024, physical therapist worked with patient and reported, patient's blood pressure lying down was 111/68, upon ambulating dropped to 93/60 and c/o lightheadedness and unsteadiness. Then rechecked still
standing and was 80/49. patient sitting in reclining chair and symptoms resolved, b/p 102/70 after. Patient denied chest pain, SOB or abdominal pain. Nephrology updated and mentioned they would adjust his edw and hold patient's Doxazosin. Recheck
orthostatic vital signs.
Chronic anemia-hemoglobin 10.3. Patient is getting Aranesp as outpatient. Continue to follow.
Diabetes mellitus-diet controlled. Hold sliding scale Insulin as patient has barely been getting any sliding scale Insulin, and to avoid hypoglycemia on dialysis days.
DVT Prophylaxis: Heparin Subq
CODE STATUS-DNR/DNI. On May 09, 2024, I confirmed with the patient, his Amalia, and his son Dr. Aaron gearldine, that patient is DNR/DNI.
On May 09, 2024, I discussed patient's case with patient's , patient at bedside, and patient's son Galen over the phone. All questions and concerns were answered to satisfaction.
On May 11, 2024, I spoke to patient's son inside patient's room as well as the patient.
On May 14, 2024, I spoke to patient's son who said family will come into the hospital to convince patient to get dialysis.
Anticipated Discharge: Within 24 hours
Subjective/Interval History
-
Date of Service: May 15, 2024
Patient was seen and examined. He denied any chest pain, shortness of breath, or any other symptoms or complaints.
Objective Data
-
Labs:
Laboratory Results
05/15/24
05:33
WBC 9.6
Hgb 10.3 L
Hct 32.2 L
Plt Count 151
Sodium 136
Potassium 3.6
Chloride 95 L
Carbon Dioxide 31 H
BUN 34 H
Creatinine 3.9 H
Glucose 98
Calcium 8.8
Total Bilirubin 0.5
AST 45
ALT 28
Alkaline Phosphatase 146 H
Vital Signs:
Vital Signs
Temp Pulse Resp BP Pulse Ox
98.3 F 60 19 125/74 95
05/15/24 07:58 05/15/24 07:58 05/15/24 07:58 05/15/24 07:58 05/15/24 07:58
I&O
05/14/24 05/15/24 05/16/24
06:59 06:59 06:59
Intake Total 660 / 660 1020 / 1020
Output Total 700 / 700 200 / 200
Balance -40 / -40 820 / 820
[2024-05-15 13:14] LABS: Glucose - Point of Care 156 mg/dl (70-99)
[2024-05-15] MEDS: EFFEXOR XR 37.5 MG PO (13:26)
[2024-05-15 16:31] VITALS: BP 126/75
[2024-05-15 17:46] LABS: Glucose - Point of Care 106 mg/dl (70-99)
[2024-05-15 21:57] LABS: Glucose - Point of Care 90 mg/dl (70-99)
[2024-05-15] MEDS: LIPITOR 10 MG PO (22:00)
[2024-05-15 23:30] VITALS: BP 150/82
[2024-05-16] MEDS: SYNTHROID 112 MCG PO (05:55)
[2024-05-16 06:00] VITALS: BMI 18.1
[2024-05-16 07:38] VITALS: BP 127/74
[2024-05-16 07:44] LABS: % Basophils 0.5 % (0-2); % Eosinophils 1.4 % (0-6); % Immature Granulocytes 0.9 % (0-0.5); % Lymphocytes 21.1 % (20.5-51.1); % Monocytes 9.4 % (1.7-9.3); % Neutrophils 66.7 % (42.2-75.2); Absolute Basophils 0.1 10^3/uL (0-0.2); Absolute Eosinophils 0.1 10^3/uL (0-0.7); Absolute Immature Granulocytes 0.1 10^3/uL (0-0.05); Absolute Lymphocytes 2.1 10^3/uL (1.2-3.4); Absolute Monocytes 0.9 10^3/uL (0.1-0.6); Absolute Neutrophils 6.6 10^3/uL (1.4-6.5); Hematocrit 33.1 % (39.0-52.0); Hemoglobin 10.5 g/dL (13.0-18.0); Mean Corp Hgb Conc. 31.7 g/dL (33.0-37.0); Mean Corpuscular Hgb 33.7 pg (27.0-31.0); Mean Corpuscular Volume 106.1 fL (80.0-94.0); Mean Platelet Volume 9.9 fL (7.4-10.4); Nucleated Red Blood Cells % 0 % (-); Platelet Count 177 10^3/uL (130-400); Red Blood Cell Count 3.12 10^6/uL (4.70-6.10); Red Cell Dist. Width 16.8 % (11.5-14.5); White Blood Cell Count 9.8 10^3/uL (4.8-10.8)
[2024-05-16 08:30] LABS: ALT (SGPT) 27 U/L (0-50); AST (SGOT) 36 U/L (17-59); Albumin 3.4 g/dl (3.5-5.0); Alkaline Phosphatase 128 U/L (38-126); Blood Urea Nitrogen 55 mg/dl (9-20); Calcium 8.6 mg/dl (8.4-10.2); Carbon Dioxide 29 mmol/L (22-30); Chloride 94 mmol/L (98-107); Estimated Creatinine Clearance 7 ml/min; Glucose 89 mg/dl (70-99); Magnesium 1.9 mg/dl (1.6-2.3); Potassium 3.5 mmol/L (3.5-5.1); Sodium 137 mmol/L (135-145); Total Bilirubin 0.6 mg/dl (0.2-1.3); Total Protein 5.8 g/dl (6.3-8.2)
[2024-05-16] MEDS: VITAMIN D3 (cholecalciferol) 50 MCG PO (09:08)
[2024-05-16] MEDS: PROSCAR 5 MG PO (09:08)
[2024-05-16] MEDS: ZYLOPRIM 100 MG PO (09:08)
[2024-05-16] MEDS: LOPRESSOR 12.5 MG PO ×2 (09:08→19:56)
[2024-05-16] MEDS: HEPARIN 5000 UNITS SC ×2 (09:09→19:56)
[2024-05-16] MEDS: WELLBUTRIN REGULAR RELEASE 100 MG PO ×2 (09:09→19:56)
[2024-05-16] MEDS: NORVASC 5 MG PO (09:09)
--- NOTE | 2024-05-16 10:54 | W.PN.NEPH.PH ---
Today's Communication / Plan
-
HD tomorrow
Assessment/Plan
-
Assessment
CKD 5
Metabolic acidosis
Hypertension
Shortness of breath
Pulmonary edema
BPH
Anemia, on Aranesp
Plan
HD tomorrow
the anticipate dc to [facility] for HD MWF 3rd (only shift available)
-
-
Date of Service: May 16, 2024
CC / HPI / ROS
-
Chief Complaint:
CKD5
History of Present Illness:
ESRD tolerated HD thursday
hemodynamically stable
Review of Systems:
no CP
no SOB
Labs
-
Labs:
WBC 9.8 10^3/uL (4.8-10.8) 05/16/24 06:53
RBC 3.12 10^6/uL (4.70-6.10) L 05/16/24 06:53
Hgb 10.5 g/dL (13.0-18.0) L 05/16/24 06:53
Hct 33.1 % (39.0-52.0) L 05/16/24 06:53
Plt Count 177 10^3/uL (130-400) 05/16/24 06:53
Sodium 137 mmol/L (135-145) 05/16/24 06:53
Potassium 3.5 mmol/L (3.5-5.1) 05/16/24 06:53
Chloride 94 mmol/L (98-107) L 05/16/24 06:53
Carbon Dioxide 29 mmol/L (22-30) 05/16/24 06:53
BUN 55 mg/dl (9-20) H 05/16/24 06:53
Creatinine 5.2 mg/dL (0.7-1.3) H* 05/16/24 06:53
eGFR 10.20 05/16/24 06:53
Glucose 89 mg/dl (70-99) 05/16/24 06:53
Calcium 8.6 mg/dl (8.4-10.2) 05/16/24 06:53
Vau-I-Bdijadebaaf Pept 31357 pg/ml 05/06/24 16:40
Albumin 3.4 g/dl (3.5-5.0) L 05/16/24 06:53
Physical Exam
-
Vital Signs:
Vital Signs
Temp Pulse Resp BP Pulse Ox
97.5 F 63 18 127/74 97
05/16/24 07:38 05/16/24 07:38 05/16/24 07:38 05/16/24 07:38 05/16/24 07:38
Cardiovascular:: Regular rate and rhythm
Respiratory:: Bilateral: Coarse
Lung Excursion:: Normal
Abdomen:: Nontender and Soft
Bowel Sounds:: Normal
Extremity Edema:: None: Bilateral:
--- NOTE | 2024-05-16 11:25 | PTCARENOTE ---
patient refused am accucheck despite being told risks of refusing this procedure. will continue to monitor.
[2024-05-16 11:29] LABS: Glucose - Point of Care 153 mg/dl (70-99)
--- NOTE | 2024-05-16 11:35 | CM ---
CM following re: discharge planning.
Reviewed pt's chart, met with pt.
CM spoke to [facility] liaison Celestino and he confirm,ed that pt can be admitted to [facility] today with HD treatment today on 3d shift. Later on CM received a phone call from [facility] liaison and he stated after
conversation between patient service coordinator at and [facility] unit at [facility] a decision has been made to discharge pt to [facility] tomorrow with HD treatment on Thursday.
Both pt and his son geraldine are aware, expressed their agreement and pt stated he spoke to his spouse and she is aware. IMM reviewed, placed on chart, pt has a copy.
Updated pt's clinical faxed to [facility] via [employer].
[facility] nursing report: [phone]
Discharge instructions fax: [phone]
to arrange transportation BLS for tomorrow 05/17/24.
D/C plan: [facility] tomorrow 05/17/24 with HD treatment scheduled for Thursday05/18/24.
CM will follow to assit pt with discharge to [facility] tomorrow.
[2024-05-16] MEDS: EFFEXOR XR 37.5 MG PO (12:09)
--- NOTE | 2024-05-16 14:43 | PTCARENOTE ---
patient denies complaints, tolerating diet, turns self in bed, refusing to sit oob in chair, despite encouragement, vss, will continue to monitor.
--- NOTE | 2024-05-16 15:14 | W.PN.HOSP.TC ---
Addendum entered and electronically signed by Ismael Ford MD 05/16/24 15:50:
Seen and examined by me independently in collaboration with the medical education manager Andra.
Lab data and imaging data reviewed.
Addendum as below :
Stable respiratory status.
Back on hemodialysis. Tolerating hemodialysis.
Ongoing disposition efforts-unfortunately cannot be dialyzed in the facility he is going today so he is going to stay and get his hemodialysis tomorrow and be discharged.
Doxazosin has been on hold -with a stable blood pressure and now back on hemodialysis do not see the need of it further. Discontinue.
Original Note:
Today's Communication/Plan
-
Hemodialysis tomorrow, discharge patient to SNF tomorrow
Assessment / Plan
Assessment / Plan
Assessment/Plan
Acute hypoxic respiratory failure, POA, suspected secondary to pulmonary interstitial edema
-Suspected this is secondary missing HD
- Echo 50-55% - unlikely due to CHF
- Neg flu and covid testing, normal WBC unikely infx.
- Status post IV Lasix 80 mg daily -- now discontinued
- Repeat chest x-ray s/p diuresis improved
Fall on 05/09/24
-Checked CT Head and CT C-spine: no fractures or hemorrhage
Chronic kidney disease 5-patient was hemodialysis
- stopped in November 2023
- Patient and his family confirmed on May 09, 2024 that patient wants dialysis now
- Dialysis started 05/10/24. Appreciate psychiatry evaluation -- patient has decision-making capacity.
- Next dialysis 05/17
- Discharge tmrw to SNF after next dialysis
Anxiety/depression
- Venlafaxine
- Wellbutrin dose decreased due to concern over seizure threshold per psychiatry
Hypertension
- Orthostatic Hypotension on 05/13
- Discontinue doxazosin
- Recheck orthostatic vitals
Chronic anemia-hemoglobin 10.3
- Patient is getting Aranesp as outpatient
- Continue to follow.
Diabetes mellitus-diet controlled
- Hold sliding scale Insulin with poor PO intake to avoid hypoglycemia on dialysis days.
DVT Prophylaxis: Heparin Subq
CODE STATUS-DNR/DNI.
Anticipated Discharge: Within 24 hours
Subjective/Interval History
-
Date of Service: May 16, 2024
Objective Data
-
Labs:
Laboratory Results
05/16/24
06:53
WBC 9.8
Hgb 10.5 L
Hct 33.1 L
Plt Count 177
Sodium 137
Potassium 3.5
Chloride 94 L
Carbon Dioxide 29
BUN 55 H
Creatinine 5.2 H*
Glucose 89
Calcium 8.6
Total Bilirubin 0.6
AST 36
ALT 27
Alkaline Phosphatase 128 H
Vital Signs:
Vital Signs
Temp Pulse Resp BP Pulse Ox
97.5 F 63 18 127/74 97
05/16/24 07:38 05/16/24 07:38 05/16/24 07:38 05/16/24 07:38 05/16/24 09:09
I&O
05/15/24 05/16/24 05/17/24
06:59 06:59 06:59
Intake Total 1020 / 1020 780 / 780
Output Total 200 / 200 200 / 200
Balance 820 / 820 580 / 580
Review of Systems
-
History Source: Patient
Constitutional: Reports Fatigue
Respiratory: Reports No Symptoms
Cardiac: Reports No Symptoms
Abdomen/GI: Reports No Symptoms
Neuro: Reports No Symptoms
Physical Exam
-
General: No Apparent Distress and Comfortable
Respiratory: Clear to Auscultation
Cardiac: Regular Rhythm and S1/S2
GI: Soft, Nontender, Nondistended and Normal Bowel Sounds
Musculoskeletal: No Edema
Skin: Warm
Psych: Calm
[2024-05-16 15:18] VITALS: BP 113/70
[2024-05-16 16:13] LABS: Glucose - Point of Care 168 mg/dl (70-99)
[2024-05-16] MEDS: LIPITOR 10 MG PO (21:12)
[2024-05-16 21:34] LABS: Glucose - Point of Care 128 mg/dl (70-99)
[2024-05-16 23:25] VITALS: BP 113/65
[2024-05-17] MEDS: SYNTHROID 112 MCG PO (05:13)
[2024-05-17 06:00] VITALS: BMI 17.9
[2024-05-17 08:08] VITALS: BP 120/68
[2024-05-17 08:39] LABS: Glucose - Point of Care 85 mg/dl (70-99)
[2024-05-17] MEDS: HEPARIN 5000 UNITS SC (09:16)
[2024-05-17] MEDS: LOPRESSOR 12.5 MG PO (09:17)
[2024-05-17] MEDS: PROSCAR 5 MG PO (09:18)
[2024-05-17] MEDS: ZYLOPRIM 100 MG PO (09:18)
[2024-05-17] MEDS: WELLBUTRIN REGULAR RELEASE 100 MG PO (09:18)
[2024-05-17] MEDS: VITAMIN D3 (cholecalciferol) 50 MCG PO (09:18)
[2024-05-17] MEDS: NORVASC 5 MG PO (09:18)
[2024-05-17 11:30] VITALS: BP 112/64; BP 115/66; BP 80/52; PULSE 59; O2SAT 99
[2024-05-17 11:42] LABS: Glucose - Point of Care 191 mg/dl (70-99)
--- NOTE | 2024-05-17 11:54 | PN.CDI ---
CDI
- -
CDI:
Physician Documentation Request
Admit Date: 05/06/24 17:57
Dear Doctor Martell,
Patient admitted for volume overload.
Please review the following and provide your response in the progress notes.
Clinical Indicators:
Height: 5' 5'
Weight:107 lbs
BMI: 17.9
If possible, please provide an associated diagnosis related to the abnormal BMI, such as:
Underweight
Cachectic
BMI is not significant
Other
BMI < or = to 19.9
Underweight
Weight Loss
Cachectic
Anorexia
Use of terms such as suspected, likely, concern for, or probable (associated with a specific diagnosis that is being evaluated, monitored, or treated as if it exists) are acceptable and can be coded in the inpatient setting, when documented at the
time of discharge.
Thank you,
Esthela Juan RN, BSN
CDI Specialist
Available via [place] text
Please use your independent medical judgment in providing your response.
--- NOTE | 2024-05-17 12:18 | CM ---
CM following re: discharge planning.
Reviewed pt's chart, met with pt during HD treatment.
D/C order noted. Pt is aware, expressed his agreement. IMM reviewed yesterday.
CM spoke to [facility] liaison and he confirmed that pt is accepted for admission today with HD treatment tomorrow.
[facility] nursing report: [phone]
Discharge instructions fax: [phone]
to arrange transportation BLS. [facility] completed and is on chart.
D/C plan: [facility] with HD treatment scheduled for Thursday05/18/24.
CM will follow to assist pt with discharge to [facility] tomorrow.
[2024-05-17 12:26] LABS: Hematocrit 30.3 % (39.0-52.0); Mean Corpuscular Volume 103.1 fL (80.0-94.0); Mean Platelet Volume 9.6 fL (7.4-10.4); Platelet Count 192 10^3/uL (130-400); Red Blood Cell Count 2.94 10^6/uL (4.70-6.10); Red Cell Dist. Width 16.9 % (11.5-14.5); White Blood Cell Count 6.9 10^3/uL (4.8-10.8)
[2024-05-17 12:48] LABS: ALT (SGPT) 22 U/L (0-50); AST (SGOT) 27 U/L (17-59); Albumin 3.1 g/dl (3.5-5.0); Alkaline Phosphatase 99 U/L (38-126); Blood Urea Nitrogen 75 mg/dl (9-20); Calcium 8.5 mg/dl (8.4-10.2); Carbon Dioxide 26 mmol/L (22-30); Chloride 96 mmol/L (98-107); Estimated Creatinine Clearance 7 ml/min; Glucose 183 mg/dl (70-99); Potassium 3.7 mmol/L (3.5-5.1); Sodium 135 mmol/L (135-145); Total Bilirubin 0.6 mg/dl (0.2-1.3); Total Protein 5.6 g/dl (6.3-8.2); eGFR 9.33
[2024-05-17 13:27] VITALS: BMI 17.9
--- NOTE | 2024-05-17 13:34 | W.PN.HOSP.TC ---
Addendum entered and electronically signed by Andra Moura MD, Resident 05/19/24 17:21:
BMI: 17.9
With weight loss of > 20% in 1 year and observed muscle and fat wasting pt meeting AND/ASPEN criteria for moderate protein calorie malnutrition of chronic illness.
Pt for d/c today, encourage intakes of > 75% of meals as tolerated
Addendum entered and electronically signed by Ismael Ford MD 05/17/24 14:30:
seen and examined by me independently in collaboration with the medical psychotherapist Andra.
Lab data and imaging data reviewed.
Addendum as below :
Couldnt leave yesterday due to logistics.
Plan was for dc to SNF after HD today.
Asymptomatic. Denies any shortness of breath or chest pain. Tolerating diet. Chest clear. Not hypoxic. Hemodynamically stable.
Medically stable for discharge to rehab today.
Total time of discharge 35 minutes
Original Note:
Today's Communication/Plan
-
Dialysis today, discharged to SNF after
Assessment / Plan
Assessment / Plan
Assessment/Plan
Acute hypoxic respiratory failure, POA, suspected secondary to pulmonary interstitial edema
-Suspected this is secondary missing HD
- Echo 50-55% - unlikely due to CHF
- Neg flu and covid testing, normal WBC unikely infx.
- Status post IV Lasix 80 mg daily -- now discontinued
- Repeat chest x-ray s/p diuresis improved
Fall on 05/09/24
-Checked CT Head and CT C-spine: no fractures or hemorrhage
Chronic kidney disease 5-patient was hemodialysis
- stopped in November 2023
- Patient and his family confirmed on May 09, 2024 that patient wants dialysis now
- Dialysis started 05/10/24. Appreciate psychiatry evaluation -- patient has decision-making capacity.
- Next dialysis 05/17
- Discharge today to SNF after dialysis
Anxiety/depression
- Venlafaxine
- Wellbutrin dose decreased to BID instead of TID due to concern over seizure threshold per psychiatry
Hypertension
- Orthostatic Hypotension on 05/13
- Discontinue doxazosin
- Recheck orthostatic vitals
Chronic anemia-hemoglobin 10.3
- Patient is getting Aranesp as outpatient
- Continue to follow.
Diabetes mellitus-diet controlled
- Hold sliding scale Insulin with poor PO intake to avoid hypoglycemia on dialysis days.
BMI: 17.9
- Decreased calorie intake
DVT Prophylaxis: Heparin Subq
CODE STATUS-DNR/DNI.
Anticipated Discharge: Today
Subjective/Interval History
-
Date of Service: May 17, 2024
Objective Data
-
Labs:
Laboratory Results
05/17/24
11:43
WBC 6.9
Hgb 10.0 L
Hct 30.3 L
Plt Count 192
Sodium 135
Potassium 3.7
Chloride 96 L
Carbon Dioxide 26
BUN 75 H
Creatinine 5.6 H*
Glucose 183 H
Calcium 8.5
Total Bilirubin 0.6
AST 27
ALT 22
Alkaline Phosphatase 99
Vital Signs:
Vital Signs
Temp Pulse Resp BP Pulse Ox
97.4 F 63 17 120/68 95
05/17/24 08:08 05/17/24 08:08 05/17/24 08:08 05/17/24 08:08 05/17/24 08:08
I&O
05/16/24 05/17/24 05/18/24
06:59 06:59 06:59
Intake Total 780 / 780 600 / 600
Output Total 200 / 200 450 / 450
Balance 580 / 580 150 / 150
Review of Systems
-
History Source: Patient
EENT: Reports No Symptoms Reported
Respiratory: Reports No Symptoms
Cardiac: Reports No Symptoms
Abdomen/GI: Reports No Symptoms
Neuro: Reports No Symptoms
Physical Exam
-
General: Comfortable
Respiratory: Clear to Auscultation
Cardiac: Regular Rhythm and S1/S2
GI: Soft, Nontender, Nondistended and Normal Bowel Sounds
Musculoskeletal: No Edema
Skin: Warm
Neuro: AO x 3
Psych: Calm
[2024-05-17] MEDS: EFFEXOR XR 37.5 MG PO (13:42)
--- NOTE | 2024-05-17 13:47 | W.DCSUMMARY ---
Documented by User: Andra Moura MD, Resident 05/17/24 14:10
Discharge Summary
Discharge Data
Date of Admission: 05/06/24
Date of Discharge: 05/17/24
-
Pending Results: No
Hospital Course
Primary diagnosis:
Acute hypoxemic respiratory failure likely secondary to pulmonary interstitial edema due to lack of hemodialysis
Secondary diagnosis:
End-stage renal disease
Anxiety depression
Hypertension
Chronic anemia
Diabetes mellitus
Hospital course:
83-year-old male with past medical history of end-stage renal disease presents to [facility] on 05/06/2024 with shortness of breath. In the ambulance he was hypoxemic 84% on room air. He has a history of end-stage renal disease and stopped
hemodialysis in November 2023. Lasix was also stopped at this time. His weight prior to stopping hemodialysis was 114 but upon admission to ED 141 pounds. Chest x-ray revealed interstitial edema. COVID and flu negative. WBC within normal limits.
Workup for CHF again. Patient was admitted and started on IV Lasix, broad-spectrum antibiotics. Nephrology consulted for end-stage renal disease with metabolic acidosis noted. The next day, procalcitonin negative, infectious etiology unlikely
especially without sore throat, cough, fever, chills. Antibiotics discontinued. On 05/08/2024 patient had a fall and was found at bedside. Head CT and cervical spine CT revealed no acute findings. Later on, patient noted to have orthostatic blood
pressure. Doxazosin was discontinued. Echo revealed normal ejection fraction 55-60% ruling out CHF exacerbation. Patient continued to refuse dialysis. Discussions of hospice began. Psychiatry consulted to evaluate for medical capacity as patient
has a past medical history of depression. Determined patient fully oriented, pleasant, full understanding and had decision capacity. However, Wellbutrin dose changed to twice daily instead of 3 times daily as with end-stage renal disease and
partial renal metabolism, increased risk for seizure. On 05/10, after much discussion, patient restarted dialysis. Repeat x-ray was re-checked after diuresis and showed overall improvement. Plans for discharge to SNF initiated pending bed
availability.
Today, patient received dialysis, and then discharged to SNF. Med changes include: oral bicarb discontinued as he is now undergoing dialysis, Wellbutrin 100 mg twice daily instead of TID, discontinue doxazosin.
Discharge Plan
-
Patient Disposition: [facility] SNF/Hospital
Discharge Diagnosis/Procedures: Acute hypoxic respiratory failure suspected secondary to pulmonary interstitial edema
Condition: Fair
Diet: 2 Gram Sodium and Restrict fluids to 64 oz
Activity: As tolerated
Driving Restrictions: As prior to admission
Bathing Restrictions: None
Instructions: *PCP/Other Shredder Operator Heart Failure Instructions
Referrals:
RAN SQUIRES DO [Family Provider] - in less than 1 week
Prescriptions:
New
bupropion HCl 100 mg Tablet
100 mg PO BID 30 Days Qty: 60 0RF
Continued
atorvastatin 10 mg Tablet
10 mg PO HS
allopurinol 100 mg Tablet
100 mg PO DAILY
amlodipine 10 mg Tablet
5 mg PO DAILY
finasteride 5 mg Tablet
5 mg PO DAILY
levothyroxine 112 mcg Tablet
112 mcg PO DAILY
cholecalciferol (vitamin D3) [Vitamin D3] 25 mcg (1,000 unit) Capsule
50 mcg PO DAILY
venlafaxine 37.5 mg capsule,extended release 24hr
37.5 mg PO DAILY@1230
metoprolol tartrate 25 mg tablet
12.5 mg PO BID
Aranesp (in polysorbate) 150 mcg/0.3 mL syringe
150 mcg SC .Q2-3W
Patient Comments:
05/06/2024: Due today
Dupixent Syringe 300 mg/2 mL syringe
300 mg SC Q2W
Discontinued
bupropion HCl 100 mg Tablet Sustained-Release 12 Hr
100 mg PO TID
doxazosin 8 mg Tablet
4 mg PO HS
sodium bicarbonate 650 mg tablet
650 mg PO MEALS
Discharge Orders:
Discharge Patient (As Directed); Ordered 05/17/24
Ordered By: Andra Moura
Discharge Date and Time
Print Language: INDONESIAN

Documented by User: Ismael Ford MD 05/17/24 14:23
Discharge Summary
Discharge Data
Date of Admission: 05/06/24
Date of Discharge: 05/17/24
Discharge Plan
-
[facility]
Discharge Diagnosis/Procedures: Acute hypoxic respiratory failure suspected secondary to pulmonary interstitial edema
Condition: Fair
Diet: 2 Gram Sodium and Restrict fluids to 64 oz
Activity: As tolerated
Driving Restrictions: As prior to admission
Bathing Restrictions: None
Instructions: *PCP/Other Shredder Operator Heart Failure Instructions
Referrals:
RAN SQUIRES DO [Family Provider] - in less than 1 week
Prescriptions:
New
bupropion HCl 100 mg Tablet
100 mg PO BID 30 Days Qty: 60 0RF
Continued
atorvastatin 10 mg Tablet
10 mg PO HS
allopurinol 100 mg Tablet
100 mg PO DAILY
amlodipine 10 mg Tablet
5 mg PO DAILY
finasteride 5 mg Tablet
5 mg PO DAILY
levothyroxine 112 mcg Tablet
112 mcg PO DAILY
cholecalciferol (vitamin D3) [Vitamin D3] 25 mcg (1,000 unit) Capsule
50 mcg PO DAILY
venlafaxine 37.5 mg capsule,extended release 24hr
37.5 mg PO DAILY@1230
metoprolol tartrate 25 mg tablet
12.5 mg PO BID
Aranesp (in polysorbate) 150 mcg/0.3 mL syringe
150 mcg SC .Q2-3W
Patient Comments:
05/06/2024: Due today
Dupixent Syringe 300 mg/2 mL syringe
300 mg SC Q2W
Discontinued
bupropion HCl 100 mg Tablet Sustained-Release 12 Hr
100 mg PO TID
doxazosin 8 mg Tablet
4 mg PO HS
sodium bicarbonate 650 mg tablet
650 mg PO MEALS
Discharge Orders:
Discharge Patient (As Directed); Ordered 05/17/24
Ordered By: Andra Moura
Discharge Date and Time
Print Language: INDONESIAN
--- NOTE | 2024-05-17 14:25 | W.PN.NEPH.HD ---
Assessment
-
Seen on HD. no complaints. VSS, access infiltrated after pt moved arm on tx
Progress Note - Hemodialysis
-
Date of Service: May 17, 2024
Duration: 45 minutes and 2 hours
Potassium Bath: 3
Calcium Bath: 2.5
Opti-Dialyzer: 160
Ultrafiltration: Other (1kg)
Blood Flow: 400
Dialysate Flow: 600
Heparin: 0
EPO: 8000 units
[2024-05-17] MEDS: RETACRIT 8000 UNITS IV (14:37)
[2024-05-17 15:00] VITALS: BP 120/71
--- NOTE | 2024-05-17 16:02 | PN.CDI ---
CDI
- -
CDI:
Physician Documentation Request
Admit Date: 05/06/24 17:57
Dear Doctor Martell,
Patient admitted for respiratory failure.
05/17 Physical Testing Supervisor Assessment: 'With weight loss of > 20% in 1 year and observed muscle and fat wasting pt meeting AND/ASPEN criteria for moderate protein calorie malnutrition of chronic illness.
Pt for d/c today, encourage intakes of > 75% of meals as tolerated.'
Based on the above information and your assessment, which of the following most accurately represents the patient's nutritional status?
Moderate protein calorie malnutrition
Other
[place] Criteria ([facility] Hospitalist 2017)
2 or more criteria must be present for either
non severe or severe malnutrition
Note that the criteria differs related to the
presence of an acute or chronic illness
Acute Illness Chronic Illness
Energy Intake Non Severe: <75% for >7 days Non Severe: <75% for >1 month
Severe: <50% for >5 days Severe: <75% for >1 month
Weight Loss Non Severe: 1-2% over 1 week Non Severe: 5% over 1 month
5% over 1 month 7.5% over 3 months
7.5% over 3 months 10% over 6 months
1 year N/A 20% over 1 year
Severe: >2% over 1 week Severe: >5% over 1 month
>5% over 1 month >7.5% over 3 months
>7.5% over 3 months >10% over 6 months
1 year N/A >20% over 1 year
Body Fat Non Severe: Mild Decrease Non Severe: Mild Loss
Severe: Moderate Decrease Severe: Severe Loss
Muscle Mass Non Severe: Mild Decrease Non Severe: Mild Loss
Severe: Moderate Decrease Severe: Severe Loss
Fluid Accumulation Non Severe: Mild Accumulation Non Severe: Mild Accumulation
Severe: Moderate to severe Severe: Moderate to severe
accumulation accumulation
Reduced Forming Operator Strength Non Severe: N/A Non Severe: N/A
Severe: Measurably reduced Severe: Measurably reduced
Additional criteria that can be used to Determine if Mild or Moderate Malnutrition (Merck Manual 2018)
Mild Moderate Severe
Albumin gm/dl <3.0 gm/dl <2.5 gm/dl <2.0 gm/dl
Pre Albumin mg/dl <15 gm/dl <10 mg/dl <5.0 mg/dl
BMI <18.5 <17 <16
Use of terms such as suspected, likely, concern for, or probable (associated with a specific diagnosis that is being evaluated, monitored, or treated as if it exists) are acceptable and can be coded in the inpatient setting, when documented at the
time of discharge.
Thank you,
Esthela Juan RN, BSN
CDI Specialist
Available via [place] text
Please use your independent medical judgment in providing your response.
--- NOTE | 2024-05-19 11:03 | PN.CDI ---
CDI
- -
CDI:
Physician Documentation Request
Admit Date: 05/06/24 17:57
Dear Doctor Martell,
Patient admitted for respiratory failure.
05/17 Jawbone Breaker Assessment: 'With weight loss of > 20% in 1 year and observed muscle and fat wasting pt meeting AND/ASPEN criteria for moderate protein calorie malnutrition of chronic illness.
Pt for d/c today, encourage intakes of > 75% of meals as tolerated.'
Based on the above information and your assessment, which of the following most accurately represents the patient's nutritional status?
Moderate protein calorie malnutrition
Other
[place] Criteria ([facility] Hospitalist 2017)
2 or more criteria must be present for either
non severe or severe malnutrition
Note that the criteria differs related to the
presence of an acute or chronic illness
Acute Illness Chronic Illness
Energy Intake Non Severe: <75% for >7 days Non Severe: <75% for >1 month
Severe: <50% for >5 days Severe: <75% for >1 month
Weight Loss Non Severe: 1-2% over 1 week Non Severe: 5% over 1 month
5% over 1 month 7.5% over 3 months
7.5% over 3 months 10% over 6 months
1 year N/A 20% over 1 year
Severe: >2% over 1 week Severe: >5% over 1 month
>5% over 1 month >7.5% over 3 months
>7.5% over 3 months >10% over 6 months
1 year N/A >20% over 1 year
Body Fat Non Severe: Mild Decrease Non Severe: Mild Loss
Severe: Moderate Decrease Severe: Severe Loss
Muscle Mass Non Severe: Mild Decrease Non Severe: Mild Loss
Severe: Moderate Decrease Severe: Severe Loss
Fluid Accumulation Non Severe: Mild Accumulation Non Severe: Mild Accumulation
Severe: Moderate to severe Severe: Moderate to severe
accumulation accumulation
Reduced Linux Security Administrator Strength Non Severe: N/A Non Severe: N/A
Severe: Measurably reduced Severe: Measurably reduced
Additional criteria that can be used to Determine if Mild or Moderate Malnutrition (Merck Manual 2018)
Mild Moderate Severe
Albumin gm/dl <3.0 gm/dl <2.5 gm/dl <2.0 gm/dl
Pre Albumin mg/dl <15 gm/dl <10 mg/dl <5.0 mg/dl
BMI <18.5 <17 <16
Use of terms such as suspected, likely, concern for, or probable (associated with a specific diagnosis that is being evaluated, monitored, or treated as if it exists) are acceptable and can be coded in the inpatient setting, when documented at the
time of discharge.
Thank you,
Esthela Juan RN, BSN
CDI Specialist
Available via [place] text
Please use your independent medical judgment in providing your response.
== END 2024-05-17 16:35 | DRG 189 ==
LOC: 3 WEST ACU 17:57
PROVIDERS: Hospitalist; Specialist; ADMITTING PHYSICIAN Internal Medicine; CONSULT PHYSICIAN Specialist; EMERGENCY PHYSICIAN Emergency Medicine; FAMILY PHYSICIAN Family Medicine; OTHER PHYSICIAN Psychiatry & Neurology Psychiatry
DX: J81.0 Acute pulmonary edema (principal); J96.01 Acute respiratory failure with hypoxia; N18.6 End stage renal disease; I13.2 Hypertensive heart and chronic kidney disease with heart failure and with stage 5 chronic kidney disease, or end stage renal disease; E87.20 Acidosis, unspecified; N17.9 Acute kidney failure, unspecified; E44.0 Moderate protein-calorie malnutrition; Z68.1 Body mass index [BMI] 19.9 or less, adult; E03.9 Hypothyroidism, unspecified; I50.9 Heart failure, unspecified; E11.22 Type 2 diabetes mellitus with diabetic chronic kidney disease; E78.00 Pure hypercholesterolemia, unspecified; N40.0 Benign prostatic hyperplasia without lower urinary tract symptoms; D64.9 Anemia, unspecified; F32.A Depression, unspecified; F41.9 Anxiety disorder, unspecified; Z11.52 Encounter for screening for COVID-19
CPT/HCPCS: 70450; 71045; 71046; 72125; 80048; 80053; 82728; 82962; 83036; 83540; 83550; 83735; 83880; 84145; 85014; 85018; 85025; 85027; 86704; 86706; 86803; 87340; 87502; 87811; 93005; 93306; 93970; 96374; 97116; 97163; 97167; 97530; 99285; G0257; J2916; P9047; Q5106

== ENCOUNTER 2024-07-12 12:30 | Inpatient (IN) | payer MEDICARE, OTHER, SELFPAY ==
[2024-07-12] VITALS (12 sets, daily range): BP systolic 144–170; BP diastolic 80–88; BMI 20.5; BMI 19.7
--- NOTE | 2024-07-12 09:59 | ED.GENMED ---
History of Present Illness
General
Chief Complaint: Weakness
Source: patient
Exam Limitations: none
Time Seen by Provider: 07/12/24 09:53
History of Present Illness
History of Present Illness:
84-year-old male end-stage renal disease on Thursday dialysis presents from home with generalized weakness and low oxygen readings. He was feeling weak and unwell the day prior to his last scheduled dialysis. He fell sustaining no
injuries but was too weak to go dialysis. He missed dialysis on Thursday and was due for dialysis today but is also feeling too weak. He was noted to be hypoxic at home by family EMS and was hypoxic here. He is 78% on room air now requiring 3 L
of oxygen. He denies chest pain or shortness of breath. He notes general weakness. No known fever. No other complaints
Phy Exam
Physical Exam
Physical Exam:
General: Cachectic male no acute respiratory distress HEENT: Normocephalic atraumatic
Heart: Regular rate and rhythm
Lungs: Clear no wheeze
Abdomen: Soft nontender nondistended
Extremities: No cyanosis or edema
Course
Orders/Labs/Results
Orders:
Orders
07/12/24 10:00
CR Chest Portable - 1 View Urgent
Comment:
Reason For Exam: sob, hypoxia
Reason Study Needs to be Portable: Unable to Transport
07/12/24 10:15
COVID-19 Antigen Urgent
Source: Nasal Swab
Complete Blood Count/With Diff Urgent
Comprehensive Metabolic Panel Urgent
Influenza A+B Rapid Molecular Urgent
BRUCE Source: Nasal Swab
Specimen Description:
07/12/24 11:25
Blood Bank Products [* Blood Bank Products] Urgent
Blood Bank Products: *Packed RBC Leuko(PRBC's)
Quantity: 1
Transfuse Today: Yes
Reason: Anemia
Abnormal Lab Results
07/12/24
10:15
RBC 1.97 L 10^6/uL
(4.70-6.10)
Hgb 6.9 L* g/dL
(13.0-18.0)
Hct 20.6 L* %
(39.0-52.0)
MCV 104.6 H fL
(80.0-94.0)
MCH 35.0 H pg
(27.0-31.0)
RDW 14.9 H %
(11.5-14.5)
Absolute Lymphs (auto) 0.8 L 10^3/uL
(1.2-3.4)
Absolute Monos (auto) 1.0 H 10^3/uL
(0.1-0.6)
Neutrophils % 76.1 H %
(42.2-75.2)
Lymphocytes % 9.9 L %
(20.5-51.1)
Monocytes % 12.4 H %
(1.7-9.3)
Chloride 97 L mmol/L
(98-107)
BUN 69 H mg/dl
(9-20)
Creatinine 6.1 H* mg/dL
(0.7-1.3)
Calcium 8.3 L mg/dl
(8.4-10.2)
Total Protein 6.0 L g/dl
(6.3-8.2)
07/12/24 10:15
07/12/24 10:15
Vital Signs
Initial and Last Documented VS:
Initial Vital Signs
Pulse Resp BP Pulse Ox
71 23 159/87 93
07/12/24 09:56 07/12/24 09:56 07/12/24 09:56 07/12/24 09:56
Last Documented Vital Signs
Temp Pulse Resp BP Pulse Ox
98.0 F 85 30 158/87 97
07/12/24 09:57 07/12/24 10:00 07/12/24 10:00 07/12/24 10:00 07/12/24 10:00
MDM/Problems Addressed
Differential Diagnosis Includes:
Generalized weakness. Hypoxia. Consider volume overload versus viral illness such as COVID or flu versus pneumonia.
Check labs and x-ray. Patient currently on continuous of oxygen.
*Critical Care Note
Total Time (30-74mins, 75-104mins- exclusive of procedures): Not Applicable
Update Note
Update Note:
Patient stable on 3 L of nasal oxygen. Hemoglobin found to be 6.9. Creatinine is 6.1 with potassium of 4.4. Spoke with the patient's son who is his medical affairs director. He is in the room. He may have been underdosed with one of his injections during
dialysis recently causing his anemia. Patient denies any dark stools. Will admit for anemia hypoxia and need for hemodialysis. Nephrology and admitting made aware
ED Attending Note
-
Portions of this chart may have been created with voice recognition software.� Occasional wrong word or��sound alike� substitutions may have occurred due to the inherent limitations of voice recognition software.
Discharge Plan
Departure
Patient Disposition: Admit
Date of Disposition: 07/12/24
Time of Disposition: 11:29
Presentation/result/management discussed w/ accepting MD/DO: Hospitalist
Discharge Problem:
Anemia, Hypoxia
Prescriptions:
No Action
atorvastatin 10 mg Tablet
10 mg PO HS
allopurinol 100 mg Tablet
100 mg PO DAILY
amlodipine 10 mg Tablet
5 mg PO DAILY
finasteride 5 mg Tablet
5 mg PO DAILY
levothyroxine 112 mcg Tablet
112 mcg PO DAILY
cholecalciferol (vitamin D3) [Vitamin D3] 25 mcg (1,000 unit) Capsule
50 mcg PO DAILY
venlafaxine 37.5 mg capsule,extended release 24hr
37.5 mg PO DAILY@1230
metoprolol tartrate 25 mg tablet
12.5 mg PO BID
Patient Comments:
NO PHARAMCY FILL AND FAMILY DOES NOT KNOW IF THIS IS SUCC OR TART
bupropion HCl 100 mg Tablet
100 mg PO BID 30 Days Qty: 60 0RF
torsemide 20 mg Tablet
20 mg PO DAILYPRN PRN (Reason: ON NON DIALYSIS DAY)
doxazosin 4 mg Tablet
4 mg PO HS
Referrals:
RAN SQUIRES DO [Family Provider] -
Interventions
Interventions:
*Risk Screen - Suicide Last Done: 07/12/24 10:03
*General Assessment Last Done: 07/12/24 10:03
*Neglect/Abuse Screening Last Done: 07/12/24 10:03
ED- Fall Risk Assessment Last Done: 07/12/24 10:03
*ED COVID-19 Vaccine History Last Done: 07/12/24 10:03
ED- Cardiac Assessment Last Done: 07/12/24 10:03
ED- Neurological Assessment Last Done: 07/12/24 10:03
ED- Pulmonary Assessment Last Done: 07/12/24 10:03
Discharge Date and Time
Print Language: SLOVAK
[2024-07-12 10:38] LABS: COVID-19 Antigen Negative (Negative)
[2024-07-12 10:47] LABS: ALT (SGPT) 12 U/L (0-50); AST (SGOT) 23 U/L (17-59); Albumin 3.5 g/dl (3.5-5.0); Alkaline Phosphatase 105 U/L (38-126); Blood Urea Nitrogen 69 mg/dl (9-20); Calcium 8.3 mg/dl (8.4-10.2); Carbon Dioxide 25 mmol/L (22-30); Chloride 97 mmol/L (98-107); Estimated Creatinine Clearance 7 ml/min; Glucose 91 mg/dl (70-99); Potassium 4.4 mmol/L (3.5-5.1); Sodium 136 mmol/L (135-145); Total Bilirubin 0.9 mg/dl (0.2-1.3); eGFR 8.37
[2024-07-12 10:54] LABS: % Basophils 0.3 % (0-2); % Eosinophils 0.8 % (0-6); % Immature Granulocytes 0.5 % (0-0.5); % Lymphocytes 9.9 % (20.5-51.1); % Monocytes 12.4 % (1.7-9.3); % Neutrophils 76.1 % (42.2-75.2); Absolute Eosinophils 0.1 10^3/uL (0-0.7); Absolute Lymphocytes 0.8 10^3/uL (1.2-3.4); Hematocrit 20.6 % (39.0-52.0); Hemoglobin 6.9 g/dL (13.0-18.0); Mean Corp Hgb Conc. 33.5 g/dL (33.0-37.0); Mean Corpuscular Volume 104.6 fL (80.0-94.0); Mean Platelet Volume 9.6 fL (7.4-10.4); Nucleated Red Blood Cells % 0 % (-); Platelet Count 189 10^3/uL (130-400); Red Blood Cell Count 1.97 10^6/uL (4.70-6.10); Red Cell Dist. Width 14.9 % (11.5-14.5); White Blood Cell Count 7.8 10^3/uL (4.8-10.8)
--- NOTE | 2024-07-12 11:41 | HPS.HSE ---
Family Physician
-
Family Physician: RAN SQUIRES DO
Chief Complaint
-
Hypoxia
Weakness
History of Present Illness
HPI: 84-year-old male with PMH ESRD on HD TTS, anemia of chronic disease, anxiety/depression, hypertension, diet-controlled diabetes; presented from home with generalized weakness and low oxygen readings.
He was feeling weak for dialysis and had missed 2 sessions. He fell but did not sustain any injury.
He denies to other symptoms such as chest pain, shortness of breath, etc.
Medical History
Past Medical History
Past Medical History: Reports HTN, Hypercholesterolemia, NIDDM, Renal Failure and Psychiatric (depression)
Past Surgical History: Reports Other (AV fistula)
Social History
Alcohol: None
Drug: None
Personal:
Living: With Family
Family History
Family History: Not pertinent
Allergies / Home Medications
Allergies reflects when Allergies were last updated in [employer].
Home Medications with original date entered in [employer]
Allergy/Medication List:
Allergies
Allergy/AdvReac Type Severity Reaction Status Date / Time
No Known Allergies Allergy Verified 07/12/24 09:56
Home Medications
allopurinol 100 mg tablet 100 mg PO DAILY Gout 07/21/22
amlodipine 10 mg tablet 5 mg PO DAILY Blood Pressure 07/21/22
atorvastatin 10 mg tablet 10 mg PO HS High Cholesterol 07/21/22
cholecalciferol (vitamin D3) 25 mcg (1,000 unit) capsule (Vitamin D3) 50 mcg PO DAILY Supplement 07/21/22
finasteride 5 mg tablet 5 mg PO DAILY BPH 07/21/22
levothyroxine 112 mcg tablet 112 mcg PO DAILY Thyroid 07/21/22
metoprolol tartrate 25 mg tablet 12.5 mg PO BID Heart Disease/Condition 05/06/24
venlafaxine 37.5 mg capsule,extended release 24 hr 37.5 mg PO DAILY@1230 Mental Health/Anxiety 05/06/24
bupropion HCl 100 mg tablet 100 mg PO BID Depression 30 days #60 tabs 05/17/24
doxazosin 4 mg tablet 4 mg PO HS 07/12/24
torsemide 20 mg tablet 20 mg PO DAILYPRN PRN ON NON DIALYSIS DAY 07/12/24
Review of Systems
-
Respiratory: Reports See HPI
Physical Exam
Vital Signs
Vital Signs
Temp Pulse Resp BP Pulse Ox
36.7 C 85 30 158/87 97
07/12/24 09:57 07/12/24 10:00 07/12/24 10:00 07/12/24 10:00 07/12/24 10:00
Physical Exam
General: Well Developed, Comfortable, Conversant and Respiratory Distress
HEENT: NormoCephalic, Moist mucous membranes, Atraumatic and Oxygen (3L NC)
Respiratory: Clear and Non Labored Respirations; No Accessory Resp Muscle Use
Cardiac: S1/S2 and Regular Rhythm; No Murmur or Rub
GI: Soft, Non Tender, Non Distended and Normal Bowel Sounds; No Organomegaly
Rectal: Deferred by Provider
Musculoskeletal: No Clubbing, No Cyanosis and No Edema
Skin: No Rash
Neuro: Awake and Alert
Psych: Calm and Intact Judgment/Insight
Laboratory Results
-
07/12/24 10:15
07/12/24 10:15
Laboratory Results
Total Bilirubin 0.9 mg/dl (0.2-1.3) 07/12/24 10:15
AST 23 U/L (17-59) 07/12/24 10:15
ALT 12 U/L (0-50) 07/12/24 10:15
Alkaline Phosphatase 105 U/L (38-126) 07/12/24 10:15
Data Reviewed
-
Diagnostic Radiology: Image Personally Visualized and interpreted and Report Reviewed by me
Lab Data: Labs Reviewed by me
Impression/Plan
-
HPI: 84-year-old male with PMH ESRD on HD TTS, anemia of chronic disease, anxiety/depression, hypertension, diet-controlled diabetes; presented from home with generalized weakness and low oxygen readings.
He was feeling weak for dialysis and had missed 2 sessions. He fell but did not sustain any injury.
He denies to other symptoms such as chest pain, shortness of breath, etc.
In the ED, his sat was noted to be low at 78% on room air, and he was placed on 3L NC oxygen.
A/P:
# Generalized weakness, likely due to acute on chronic anemia and clinical deconditioning
Check TSH reflex FT4, random cortisol level, CRP to rule out acute infectious process
PT OT eval
# Acute on chronic anemia
# Anemia of chronic disease
Hemoglobin 6.9 on admission, 1 unit PRBC ordered
follow H&H
# End-stage renal disease on HD TTS
# HD was started in May 2024
Renal consult for dialysis need
# Acute hypoxic respiratory insufficiency POA, suspect secondary to pulmonary edema 2/2 missed HD
CXR this admission noted Mild acute interstitial and alveolar cardiogenic pulmonary edema.
Flu and COVID tests on admission negative
Patient placed on 3 L nasal cannula, wean O2 as tolerated, not on O2 at home
# Anxiety/depression
Venlafaxine, Wellbutrin BID
# Hypertension
# Diabetes mellitus-diet controlled
DVT ppx: SCD
DNR, d/w at bedside
--- NOTE | 2024-07-12 12:26 | W.CON.NEPH ---
Consultation
-
Date/Time Consultation Requested: 07/12/2024 12:00 noon
Date/Time Consultation Performed: 07/12/2024 12:15 PM
Requesting Provider: Dr. Londono
Performing Provider: Dr. Sanchez
Reason for Consultation: End-stage renal disease
Medical History
-
Chief Complaint: End-stage renal disease
History of Present Illness:
This is an 84-year-old gentleman who has ESRD and receives dialysis at the [facility] unit [facility] every Thursday and Thursday. His last dialysis was last as he felt too weak to attend dialysis on Thursday and today.He has a
multidrug regimen (amlodipine and metoprolol) for hypertension.He is maintained on Aranesp for his anemia of chronic kidney disease. He had previously been on dialysis via an AV fistula in his right upper arm. He is maintained on finasteride and
doxazosin for his BPH. He presented to the emergency room with profound weakness and anemia as noted by hemoglobin of 6.9. He was placed on oxygen as he does have some underlying shortness of breath and congestive heart failure findings on chest
x-ray and nephrology was asked to see the patient.
Past Medical History
ESRD, hypertension, hyperlipidemia, depression, BPH, hypothyroidism, diabetes type II, skin cancers, esophageal dilatation, Mohs surgery, TURP, anemia of chronic kidney disease, right upper extremity AV fistula
Social History
Tobacco: Non-Smoker
Alcohol: None
Family History
Family History: Not Pertinent
Allergies / Home Medications
Allergy/AdvReac Type Severity Reaction Status Date / Time
No Known Allergies Allergy Verified 07/12/24 09:56
�Medication �Instructions �Recorded �Confirmed �Type
allopurinol 100 mg tablet 100 mg PO DAILY Gout 07/21/22 07/12/24 History
amlodipine 10 mg tablet 5 mg PO DAILY Blood Pressure 07/21/22 07/12/24 History
atorvastatin 10 mg tablet 10 mg PO HS High Cholesterol 07/21/22 07/12/24 History
cholecalciferol (vitamin D3) 25 50 mcg PO DAILY Supplement 07/21/22 07/12/24 History
mcg (1,000 unit) capsule (Vitamin
D3)
finasteride 5 mg tablet 5 mg PO DAILY BPH 07/21/22 07/12/24 History
levothyroxine 112 mcg tablet 112 mcg PO DAILY Thyroid 07/21/22 07/12/24 History
metoprolol tartrate 25 mg tablet 12.5 mg PO BID Heart 05/06/24 07/12/24 History
Disease/Condition
venlafaxine 37.5 mg 37.5 mg PO DAILY@1230 Mental 05/06/24 07/12/24 History
capsule,extended release 24 hr Health/Anxiety
bupropion HCl 100 mg tablet 100 mg PO BID Depression 30 days 05/17/24 07/12/24 Rx
#60 tabs
doxazosin 4 mg tablet 4 mg PO HS 07/12/24 07/12/24 History
torsemide 20 mg tablet 20 mg PO DAILYPRN PRN ON NON 07/12/24 07/12/24 History
DIALYSIS DAY
Review of Systems
-
History Source: Patient
All other systems: Negative unless noted
Constitutional: Fatigue
Respiratory: Other (Dyspnea on exertion)
Cardiac: No Symptoms
Abdomen/GI: No Symptoms
: Other (Still makes urine)
Musculoskeletal: Other (Difficulty with ambulation)
Skin: No Symptoms
Neurological: No Symptoms
Endocrine: No Symptoms
Hematologic/Lymphatic: No Symptoms
Physical Exam
Vital Signs
Vital Signs
Temp Pulse Resp BP Pulse Ox
98.0 F 85 30 158/87 97
07/12/24 09:57 07/12/24 10:00 07/12/24 10:00 07/12/24 10:00 07/12/24 10:00
Lab Results
07/12/24 10:15
07/12/24 10:15
WBC 7.8 10^3/uL (4.8-10.8) 07/12/24 10:15
RBC 1.97 10^6/uL (4.70-6.10) L 07/12/24 10:15
Hgb 6.9 g/dL (13.0-18.0) L* 07/12/24 10:15
Hct 20.6 % (39.0-52.0) L* 07/12/24 10:15
Plt Count 189 10^3/uL (130-400) 07/12/24 10:15
Sodium 136 mmol/L (135-145) 07/12/24 10:15
Potassium 4.4 mmol/L (3.5-5.1) 07/12/24 10:15
Chloride 97 mmol/L (98-107) L 07/12/24 10:15
Carbon Dioxide 25 mmol/L (22-30) 07/12/24 10:15
BUN 69 mg/dl (9-20) H 07/12/24 10:15
Creatinine 6.1 mg/dL (0.7-1.3) H* 07/12/24 10:15
eGFR 8.37 07/12/24 10:15
Glucose 91 mg/dl (70-99) 07/12/24 10:15
Calcium 8.3 mg/dl (8.4-10.2) L 07/12/24 10:15
Albumin 3.5 g/dl (3.5-5.0) 07/12/24 10:15
Physical Exam
Patient is awake alert oriented and in no distress. Mood and affect were pleasant, Pupils are equal round and reactive to light, extraocular movements are intact, sclera were anicteric. Hearing was normal, ears and nose are intact. Oropharynx was
clear. Neck was supple with trachea midline and no thyromegaly. Heart was regular rate and rhythm without rubs. Lower extremities without edema. Lungs were with faint Rales scattered to auscultation bilaterally and with normal excursion there were
decreased breath sounds to the bases. Abdomen was soft, nontender, with normal active bowel sounds, and no hepatosplenomegaly. Skin was without rash and with normal turgor.
Vascular Access: AVF (Right upper extremity AVF with good thrill and bruit)
Data Reviewed
-
Radiology: Image Personally Visualized and interpreted (Chest x-ray notes bilateral interstitial edema)
Labs: Labs Reviewed by me (BMP CBC)
Old Records: Reviewed (Previous nephrology consultation reviewed from May 2024 where upon dialysis was reinitiated)
Assessment/Plan
-
Assessment
ESRD TTS [facility] unit
Weakness on presentation
Hypertension
Pulmonary edema
BPH
Anemia, on Aranesp
Right upper extremity AV fistula
Plan
HD today
Orders provided
Escalate TARUN on dialysis
Patient would likely benefit from 1 unit blood transfusion as well
Would heme check stool to make sure patient does not have anemia from GI bleeding source
I will hold off heparin on dialysis
[2024-07-12 13:20] LABS: TSH Reflex To Free T4 0.06 uIU/ml (0.47-4.68)
[2024-07-12 14:08] LABS: Free T4 1.51 ng/dl (0.78-2.19)
--- NOTE | 2024-07-12 15:00 | PTCARENOTE ---
patient arrived to floor from ER via stretcher. denies pain, 3L NC maintained, turns with assist x1, vss, hemodialysis nurse at bedside, will continue to monitor.
--- NOTE | 2024-07-12 16:55 | W.PN.NEPH.HD ---
Assessment
-
Patient seen on assist
Systolic blood pressure stable at current ultrafiltration
Will likely have blood product on dialysis or afterward
Progress Note - Hemodialysis
-
Date of Service: July 12, 2024
Duration: 30 minutes and 3 hours
Potassium Bath: 3
Calcium Bath: 2.5
Opti-Dialyzer: 160
Ultrafiltration: Other (1.5 to 2 kg)
Blood Flow: 400
Dialysate Flow: 600
Heparin: None
EPO: 6000
[2024-07-12] MEDS: RETACRIT 10000 UNITS IV (17:38)
[2024-07-12] MEDS: LOPRESSOR 12.5 MG PO (20:10)
[2024-07-12] MEDS: WELLBUTRIN REGULAR RELEASE 100 MG PO (20:11)
[2024-07-12] MEDS: TYLENOL 650 MG PO (20:12)
[2024-07-12] MEDS: CARDURA 4 MG PO (21:37)
[2024-07-12] MEDS: LIPITOR 10 MG PO (21:43)
[2024-07-12] MEDS: EFFEXOR XR PO (23:05)
[2024-07-13] MEDS: MELATONIN 3 MG PO (01:35)
[2024-07-13 03:43] VITALS: BP 131/78
[2024-07-13 06:00] VITALS: BMI 19.5
[2024-07-13 06:40] LABS: Hematocrit 25.8 % (39.0-52.0); Hemoglobin 8.7 g/dL (13.0-18.0); Mean Corp Hgb Conc. 33.7 g/dL (33.0-37.0); Mean Corpuscular Hgb 33.1 pg (27.0-31.0); Mean Corpuscular Volume 98.1 fL (80.0-94.0); Mean Platelet Volume 9.5 fL (7.4-10.4); Platelet Count 188 10^3/uL (130-400); Red Blood Cell Count 2.63 10^6/uL (4.70-6.10); Red Cell Dist. Width 18.2 % (11.5-14.5); White Blood Cell Count 8.9 10^3/uL (4.8-10.8)
[2024-07-13 06:44] LABS: Blood Urea Nitrogen 36 mg/dl (9-20); Calcium 8.5 mg/dl (8.4-10.2); Carbon Dioxide 29 mmol/L (22-30); Chloride 95 mmol/L (98-107); Estimated Creatinine Clearance 14 ml/min; Glucose 75 mg/dl (70-99); Potassium 3.8 mmol/L (3.5-5.1); Sodium 135 mmol/L (135-145); eGFR 21.31
[2024-07-13 07:00] VITALS: BP 154/82
--- NOTE | 2024-07-13 07:34 | W.PN.HOSP.TC ---
Addendum entered and electronically signed by Jodie Londono MD 07/13/24 15:07:
I personally performed a history and physical exam of the patient and discussed management with the resident. I reviewed the resident's note and agree with the documented findings and plan of care HPI/CC.
A/P:
# Generalized weakness, likely due to acute on chronic anemia and clinical deconditioning
Random cortisol level normal at 40
TSH noted low at 0.6, free t4 1.51. Recc to repeat TFT in 4 weeks with PCP.
Noted elevated CRP, check empiric blood culture.
Patient comfortable, nontoxic appearing
# Acute hypoxic respiratory insufficiency POA, ?pulmonary edema secondary to missed HD
CXR: Mild acute interstitial and alveolar cardiogenic pulmonary edema.
Flu and COVID tests on admission negative
On 3 L nasal cannula, wean O2 as tolerated, not on O2 at home
# Acute on chronic anemia
Hemoglobin 6.9 on admission, s/p 1 unit prbc, responded appropriately to 8.7
Can check iron panel
# End-stage renal disease on HD Thursday, , Thursday
# HD was started in May 2024
Nephrology on board for HD needs
# Anxiety/depression
continue Venlafaxine, Wellbutrin BID
# Hypertension
continue Norvasc
# BPH
Continue finasteride and doxazosin
# HLD
continue statin
# Diabetes mellitus-diet controlled
DVT ppx: SCD
DNR
Original Note:
Today's Communication/Plan
-
blood cultures pending
Assessment / Plan
Assessment / Plan
Impression: 84-year-old male with PMH ESRD on HD TTS, anemia of chronic disease, anxiety/depression, hypertension, diet-controlled diabetes; presented from home with generalized weakness and low oxygen readings.
Assessment/Plan:
# Generalized weakness, likely due to acute on chronic anemia and clinical deconditioning
-Random cortisol level normal
-TSH 0.6, free t4 1.51
-Elevated CRP--?inf process
-blood cultures pending
# Acute on chronic anemia
-Hemoglobin 6.9 on admission, s/p 1 unit prbc
-Hb increased to 8.7
-Ferritin, iron panel ordered
# End-stage renal disease on HD Thursday, , Thursday
# HD was started in May 2024
-Nephrology consulted, input appreciated
# Acute hypoxic respiratory insufficiency POA, ?pulmonary edema secondary to missed HD
-CXR: Mild acute interstitial and alveolar cardiogenic pulmonary edema.
-Flu and COVID tests on admission negative
- On 3 L nasal cannula, wean O2 as tolerated, not on O2 at home
#Anxiety/depression
-continue Venlafaxine, Wellbutrin BID
#Hypertension
-continue Norvasc
#BPH
-Continue finasteride and doxazosin
#HLD
-continue statin
# Diabetes mellitus-diet controlled
DVT ppx: SCD
DNR
Anticipated Discharge: 24 - 48 hours
Subjective/Interval History
-
Date of Service: July 13, 2024
Patient denies any new acute complaints such as CP, nausea, or vomiting.
Objective Data
-
Labs:
Laboratory Results
07/13/24
05:59
WBC 8.9
Hgb 8.7 L D
Hct 25.8 L
Plt Count 188
Sodium 135
Potassium 3.8
Chloride 95 L
Carbon Dioxide 29
BUN 36 H
Creatinine 2.8 H
Glucose 75
Calcium 8.5
Vital Signs:
Vital Signs
Temp Pulse Resp BP Pulse Ox
98.4 F 67 18 131/78 97
07/13/24 03:43 07/13/24 03:43 07/13/24 03:43 07/13/24 03:43 07/13/24 03:43
I&O
07/12/24 07/13/24 07/14/24
06:59 06:59 06:59
Intake Total 610 / 610
Balance 610 / 610
Review of Systems
-
All other systems: Reviewed and negative
Physical Exam
-
General: No Apparent Distress
Respiratory: Clear to Auscultation
Cardiac: Regular Rhythm and S1/S2; Negative Murmur
GI: Soft, Nontender and Nondistended
Musculoskeletal: No Edema
Skin: Warm and Dry
Neuro: Awake, Alert and Oriented
Psych: Calm
[2024-07-13] MEDS: LOPRESSOR 12.5 MG PO ×2 (08:34→21:06)
[2024-07-13] MEDS: NORVASC 5 MG PO (08:35)
[2024-07-13] MEDS: PROSCAR 5 MG PO (08:35)
[2024-07-13] MEDS: SYNTHROID 112 MCG PO (08:35)
[2024-07-13] MEDS: WELLBUTRIN REGULAR RELEASE 100 MG PO ×2 (08:35→21:04)
[2024-07-13] MEDS: ZYLOPRIM 100 MG PO (08:35)
[2024-07-13 11:00] VITALS: BP 121/70
[2024-07-13] MEDS: EFFEXOR XR 37.5 MG PO (11:49)
--- NOTE | 2024-07-13 13:15 | CM ---
Patient seen at bedside. Patient stated please call my at [phone]. stated that she is staying with her son Sajan because it is closer to . Patient stated that they live in an apartment building with an elevator. Patient
goes to the [facility] center in [place] on [address] [facility]. Patient son indicated to that he felt 'patient did not get enough Hemoglobin' per patient . Patient confirmed that patient had been at [facility] after last
hospitalization. Patient may benefit from PT/OT assessment to determine if patient needs SNF stay or can return to home with VN. CM will continue to follow for discharge planning needs.
Plan; home with VN vs SNF
[2024-07-13 13:46] LABS: Iron 58 ug/dl (49-181)
[2024-07-13 13:55] LABS: Percent Saturation 29 % (20-50); Total Iron Binding Capacity 194 ug/dl (261-462)
--- NOTE | 2024-07-13 14:13 | W.PN.NEPH.PH ---
Today's Communication / Plan
-
HD tomorrow
Assessment/Plan
-
Assessment
ESRD TTS [facility] unit
Weakness on presentation
Hypertension
Pulmonary edema
BPH
Anemia, on Aranesp
Right upper extremity AV fistula
Plan
HD tomorrow
Anemia- TARUN on dialysis
I will hold off heparin on dialysis
BP stable
-
-
Date of Service: July 13, 2024
CC / HPI / ROS
-
Chief Complaint:
ESRD
History of Present Illness:
s/p HD yesterday
hb better at 8.7
Bps table, no fever
Review of Systems:
no cp or sob
feels well
Labs
-
Labs:
WBC 8.9 10^3/uL (4.8-10.8) 07/13/24 05:59
RBC 2.63 10^6/uL (4.70-6.10) L 07/13/24 05:59
Hgb 8.7 g/dL (13.0-18.0) L D 07/13/24 05:59
Hct 25.8 % (39.0-52.0) L 07/13/24 05:59
Plt Count 188 10^3/uL (130-400) 07/13/24 05:59
Sodium 135 mmol/L (135-145) 07/13/24 05:59
Potassium 3.8 mmol/L (3.5-5.1) 07/13/24 05:59
Chloride 95 mmol/L (98-107) L 07/13/24 05:59
Carbon Dioxide 29 mmol/L (22-30) 07/13/24 05:59
BUN 36 mg/dl (9-20) H 07/13/24 05:59
Creatinine 2.8 mg/dL (0.7-1.3) H 07/13/24 05:59
eGFR 21.31 07/13/24 05:59
Glucose 75 mg/dl (70-99) 07/13/24 05:59
Calcium 8.5 mg/dl (8.4-10.2) 07/13/24 05:59
Albumin 3.5 g/dl (3.5-5.0) 07/12/24 10:15
Physical Exam
-
Vital Signs:
Vital Signs
Temp Pulse Resp BP Pulse Ox
98.5 F 63 18 121/70 95
07/13/24 11:00 07/13/24 11:00 07/13/24 11:00 07/13/24 11:00 07/13/24 11:00
Cardiovascular:: Regular rate and rhythm
Respiratory:: Bilateral: CTA
Lung Excursion:: Normal
Abdomen:: Nontender and Soft
Extremity Edema:: None: Bilateral:
Linares Catheter: No
[2024-07-13 15:00] VITALS: BP 116/69
[2024-07-13 15:17] VITALS: BMI 19.5
[2024-07-13 19:45] VITALS: BP 147/87
[2024-07-13] MEDS: LIPITOR 10 MG PO (21:06)
[2024-07-13] MEDS: CARDURA 4 MG PO (21:06)
[2024-07-13 23:45] VITALS: BP 144/86
[2024-07-14] VITALS (9 sets, daily range): BP systolic 116–152; BP diastolic 60–87; PULSE 70; O2SAT 95; BMI 19.9
[2024-07-14] MEDS: TYLENOL 650 MG PO ×2 (03:31→12:16)
[2024-07-14] MEDS: SYNTHROID 112 MCG PO (05:31)
--- NOTE | 2024-07-14 07:34 | W.PN.HOSP.TC ---
Addendum entered and electronically signed by Jodie Londono MD 07/14/24 11:13:
I personally performed a history and physical exam of the patient and discussed management with the resident. I reviewed the resident's note and agree with the documented findings and plan of care HPI/CC.
A/P:
# Generalized weakness, likely due to acute on chronic anemia and clinical deconditioning
Random cortisol level normal at 40
TSH noted low at 0.6, free t4 1.51. Recc to repeat TFT in 4 weeks with PCP.
Noted elevated CRP, empiric blood cultures x2 so far negative. Patient appears comfortable and nontoxic
# Acute hypoxic respiratory insufficiency POA, 2/2 pulmonary edema from missed HD
CXR: Mild acute interstitial and alveolar cardiogenic pulmonary edema.
Flu and COVID on admission negative
On 3 L nasal cannula, wean O2 as tolerated, not on O2 at home
# Acute on chronic anemia
Hemoglobin 6.9 on admission, s/p 1 unit prbc, responded appropriately.
Hgb today 8.0
iron panel reviewed
# End-stage renal disease on HD Thursday, , Thursday
# HD was started in May 2024
Nephrology on board for HD needs
# Anxiety/depression
continue Venlafaxine, Wellbutrin BID
# Hypertension
continue Norvasc
# BPH
Continue finasteride and doxazosin
# HLD
continue statin
# Diabetes mellitus-diet controlled
DVT ppx: SCD
DNR
Dispo: PT OT eval
Original Note:
Today's Communication/Plan
-
blood cultures pending
HD today
Assessment / Plan
Assessment / Plan
Impression: 84-year-old male with PMH ESRD on HD TTS, anemia of chronic disease, anxiety/depression, hypertension, diet-controlled diabetes; presented from home with generalized weakness and low oxygen readings.
Assessment/Plan:
# Generalized weakness, likely due to acute on chronic anemia and clinical deconditioning
-Random cortisol level normal
-TSH 0.6, free t4 1.51
-Elevated CRP--?inf process
-blood cultures pending
# Acute on chronic anemia
-Hemoglobin 6.9 on admission, s/p 1 unit prbc
-Hb increased to 8.7
-Ferritin, iron panel-- > likely chronic anemia
# End-stage renal disease on HD Thursday, , Thursday
# HD was started in May 2024
-Nephrology consulted, input appreciated
# Acute hypoxic respiratory insufficiency POA, ?pulmonary edema secondary to missed HD
-CXR: Mild acute interstitial and alveolar cardiogenic pulmonary edema.
-Flu and COVID tests on admission negative
- On 3 L nasal cannula, wean O2 as tolerated, not on O2 at home
#Anxiety/depression
-continue Venlafaxine, Wellbutrin BID
#Hypertension
-continue Norvasc
#BPH
-Continue finasteride and doxazosin
#HLD
-continue statin
# Diabetes mellitus-diet controlled
DVT ppx: SCD
DNR
Anticipated Discharge: 24 - 48 hours
Subjective/Interval History
-
Date of Service: July 14, 2024
Patient has no acute new concerns today and feels fine.
Objective Data
-
Labs:
Laboratory Results
07/14/24
06:00
WBC Pending
Hgb Pending
Hct Pending
Plt Count Pending
Sodium Pending
Potassium Pending
Chloride Pending
Carbon Dioxide Pending
BUN Pending
Creatinine Pending
Glucose Pending
Calcium Pending
Vital Signs:
Vital Signs
Temp Pulse Resp BP Pulse Ox
98 F 79 22 149/87 93
07/14/24 03:35 07/14/24 03:35 07/14/24 03:35 07/14/24 03:35 07/14/24 03:35
I&O
07/13/24 07/14/24 07/15/24
06:59 06:59 06:59
Intake Total 610 / 610 1949
Balance 610 / 610 1949
Review of Systems
-
All other systems: Reviewed and negative
Physical Exam
-
General: No Apparent Distress
HEENT: Normocephalic
Respiratory: Clear to Auscultation
Cardiac: Regular Rhythm and S1/S2
GI: Soft, Nontender and Nondistended
Musculoskeletal: No Edema
Skin: Warm and Dry
Neuro: Awake, Alert and Oriented
Psych: Calm
[2024-07-14 09:01] LABS: % Basophils 0.6 % (0-2); % Eosinophils 4.1 % (0-6); % Immature Granulocytes 0.5 % (0-0.5); % Lymphocytes 13.9 % (20.5-51.1); % Monocytes 14.3 % (1.7-9.3); % Neutrophils 66.6 % (42.2-75.2); Absolute Basophils 0.1 10^3/uL (0-0.2); Absolute Eosinophils 0.3 10^3/uL (0-0.7); Absolute Lymphocytes 1.1 10^3/uL (1.2-3.4); Absolute Monocytes 1.1 10^3/uL (0.1-0.6); Absolute Neutrophils 5.2 10^3/uL (1.4-6.5); Hematocrit 23.8 % (39.0-52.0); Mean Corp Hgb Conc. 33.6 g/dL (33.0-37.0); Mean Corpuscular Hgb 32.9 pg (27.0-31.0); Mean Corpuscular Volume 97.9 fL (80.0-94.0); Mean Platelet Volume 8.9 fL (7.4-10.4); Nucleated Red Blood Cells % 0 % (-); Platelet Count 186 10^3/uL (130-400); Red Blood Cell Count 2.43 10^6/uL (4.70-6.10); Red Cell Dist. Width 17.8 % (11.5-14.5); White Blood Cell Count 7.8 10^3/uL (4.8-10.8)
[2024-07-14] MEDS: RETACRIT 10000 UNITS IV (09:31)
--- NOTE | 2024-07-14 10:26 | CM ---
Patient seen at bedside. patient on HD at this time. Patient for PT/OT assessment. CM will continue to follow for discharge planning needs.
Plan; SNF vs home with VN pending therapy assessment
[2024-07-14 10:42] LABS: Blood Urea Nitrogen 57 mg/dl (9-20); Calcium 8.3 mg/dl (8.4-10.2); Carbon Dioxide 27 mmol/L (22-30); Chloride 98 mmol/L (98-107); Estimated Creatinine Clearance 10 ml/min; Glucose 92 mg/dl (70-99); Magnesium 2.1 mg/dl (1.6-2.3); Potassium 3.7 mmol/L (3.5-5.1); Sodium 136 mmol/L (135-145); eGFR 12.73
--- NOTE | 2024-07-14 12:22 | W.PN.NEPH.HD ---
Assessment
-
pt seen during HD
vitals stable
hb down at 8, high dose TARUN
high ferritin precludes IV fe
start FR
wean O2 as able
Progress Note - Hemodialysis
-
Date of Service: July 14, 2024
Duration: 30 minutes and 3 hours
Potassium Bath: 3
Calcium Bath: 2.5
Opti-Dialyzer: 160
Ultrafiltration: Other (2kg)
Blood Flow: 400
Dialysate Flow: 600
Heparin: no
EPO: [id number]
[2024-07-14] MEDS: ZYLOPRIM PO (13:31)
[2024-07-14] MEDS: NORVASC 5 MG PO (13:38)
[2024-07-14] MEDS: WELLBUTRIN REGULAR RELEASE 100 MG PO ×2 (13:38→21:35)
[2024-07-14] MEDS: LOPRESSOR 12.5 MG PO ×2 (13:42→21:35)
[2024-07-14] MEDS: PROSCAR 5 MG PO (13:42)
[2024-07-14] MEDS: EFFEXOR XR 37.5 MG PO (13:42)
[2024-07-14] MEDS: ZYLOPRIM 100 MG PO (16:54)
--- NOTE | 2024-07-14 17:56 | PTCARENOTE ---
Pt tolerated weening O2 throughout day. At start of shift pt sating 92% on 3L. After slow ween, pt sating 91% on RA. Will continue to monitor pt's pulse ox.
[2024-07-14] MEDS: CARDURA 4 MG PO (21:36)
[2024-07-14] MEDS: LIPITOR 10 MG PO (21:36)
[2024-07-15] VITALS (8 sets, daily range): BP systolic 91–130; BP diastolic 57–78; O2SAT 84; BMI 18.8
[2024-07-15] MEDS: SYNTHROID 112 MCG PO (05:35)
[2024-07-15 06:59] LABS: Hematocrit 28.6 % (39.0-52.0); Hemoglobin 9.7 g/dL (13.0-18.0); Mean Corp Hgb Conc. 33.9 g/dL (33.0-37.0); Mean Corpuscular Volume 97.3 fL (80.0-94.0); Mean Platelet Volume 9.3 fL (7.4-10.4); Platelet Count 216 10^3/uL (130-400); Red Blood Cell Count 2.94 10^6/uL (4.70-6.10); Red Cell Dist. Width 16.9 % (11.5-14.5); White Blood Cell Count 8.3 10^3/uL (4.8-10.8)
[2024-07-15 07:03] LABS: Blood Urea Nitrogen 36 mg/dl (9-20); Calcium 8.4 mg/dl (8.4-10.2); Carbon Dioxide 29 mmol/L (22-30); Chloride 96 mmol/L (98-107); Estimated Creatinine Clearance 13 ml/min; Glucose 103 mg/dl (70-99); Magnesium 1.9 mg/dl (1.6-2.3); Potassium 3.9 mmol/L (3.5-5.1); Sodium 135 mmol/L (135-145); eGFR 19.61
--- NOTE | 2024-07-15 07:25 | W.PN.HOSP.TC ---
Addendum entered and electronically signed by Jodie Londono MD 07/15/24 13:44:
I personally performed a history and physical exam of the patient and discussed management with the resident. I reviewed the resident's note and agree with the documented findings and plan of care HPI/CC.
A/P:
# Generalized weakness, likely due to acute on chronic anemia and clinical deconditioning
Random cortisol level normal at 40
TSH noted low at 0.6, free t4 1.51. Recc to repeat TFT in 4 weeks with PCP.
Noted elevated CRP, empiric blood cultures x2 negative. Patient appears comfortable and nontoxic. No fever
# Acute hypoxic respiratory insufficiency POA, 2/2 pulmonary edema from missed HD
CXR: Mild acute interstitial and alveolar cardiogenic pulmonary edema.
Flu and COVID on admission negative
Now on 2 L nasal cannula, wean O2 as tolerated, not on O2 at home
# Acute watery diarrhea, started 07/15
Check norovirus with current pandemic
# Acute on chronic anemia
Hemoglobin 6.9 on admission, s/p 1 unit prbc, responded appropriately.
Hgb today 9.6
iron panel reviewed
# End-stage renal disease on HD Thursday, , Thursday
# HD was started in May 2024
Nephrology on board for HD needs
# Anxiety/depression
continue Venlafaxine, Wellbutrin BID
# Hypertension
continue Norvasc
# BPH
Continue finasteride and doxazosin
# HLD
continue statin
# Diabetes mellitus-diet controlled
DVT ppx: SCD
DNR
Dispo: TBD per PT OT eval
Original Note:
Today's Communication/Plan
-
Norovirus test pending
HD tomorrow
Assessment / Plan
Assessment / Plan
Impression: 84-year-old male with PMH ESRD on HD TTS, anemia of chronic disease, anxiety/depression, hypertension, diet-controlled diabetes; presented from home with generalized weakness and low oxygen readings.
Assessment/Plan:
# Generalized weakness, likely due to acute on chronic anemia and clinical deconditioning
-Random cortisol level normal
-TSH 0.6, free t4 1.51
-Elevated CRP--likely not infectious process
-blood cultures negative
# Acute on chronic anemia
-Hemoglobin 6.9 on admission, s/p 1 unit prbc
-Hb increased to 8.7, responded appropriately
-Ferritin, iron panel reviewed-- > likely chronic anemia
#Loose, Watery Bowel Movements-Diarrhea
- WBC within normal limits
�Afebrile
-Norovirus ordered
# End-stage renal disease on HD Thursday, , Thursday
# HD was started in May 2024
-Nephrology consulted, input appreciated
# Acute hypoxic respiratory insufficiency POA, ?pulmonary edema secondary to missed HD
-CXR: Mild acute interstitial and alveolar cardiogenic pulmonary edema.
-Flu and COVID tests on admission negative
- On 3 L nasal cannula, wean O2 as tolerated tomorrow, not on O2 at home
#Anxiety/depression
-continue Venlafaxine, Wellbutrin BID
#Hypertension
-continue Norvasc
#BPH
-Continue finasteride and doxazosin
#HLD
-continue statin
# Diabetes mellitus-diet controlled
DVT ppx: SCD
DNR
Anticipated Discharge: Today
Subjective/Interval History
-
Date of Service: July 15, 2024
Patient states that he has 2 episodes of watery diarrhea but no fever
Objective Data
-
Labs:
Laboratory Results
07/15/24 07/15/24
06:06 06:07
WBC 8.3
Hgb 9.7 L D
Hct 28.6 L
Plt Count 216
Sodium 135
Potassium 3.9
Chloride 96 L
Carbon Dioxide 29
BUN 36 H
Creatinine 3.0 H
Glucose 103 H
Calcium 8.4
Vital Signs:
Vital Signs
Temp Pulse Resp BP Pulse Ox
97.8 F 67 24 130/74 88
07/15/24 03:00 07/15/24 03:00 07/15/24 03:00 07/15/24 03:00 07/15/24 03:00
I&O
07/14/24 07/15/24 07/16/24
06:59 06:59 06:59
Intake Total 1949 960 / 960
Balance 1949 960 / 960
Review of Systems
-
Constitutional: Denies Fever or Chills
EENT: Reports No Symptoms Reported
Respiratory: Reports No Symptoms
Cardiac: Reports No Symptoms
Abdomen/GI: Reports Abdominal Pain, Nausea and Diarrhea
Skin: Reports No Symptoms
Neuro: Reports No Symptoms
Physical Exam
-
General: No Apparent Distress
HEENT: Normocephalic
Respiratory: Clear to Auscultation
Cardiac: Regular Rhythm and S1/S2
GI: Soft, Nontender and Nondistended
Musculoskeletal: No Edema
Skin: Warm and Dry
Neuro: Awake, Alert and Oriented
Psych: Calm
--- NOTE | 2024-07-15 10:00 | PTCARENOTE ---
Patient c/o abdominal tenderness, nausea, and diarrhea. Zofran given at 1018. Patient having loose brown stool-specimen collected. Patient tolerating cristina haleigh only. Call diaz in reach, bed alarm maintained. Physician made aware.
[2024-07-15] MEDS: NORVASC 5 MG PO (10:04)
[2024-07-15] MEDS: WELLBUTRIN REGULAR RELEASE 100 MG PO ×2 (10:04→20:19)
[2024-07-15] MEDS: PROSCAR 5 MG PO (10:04)
[2024-07-15] MEDS: LOPRESSOR 12.5 MG PO ×2 (10:04→22:32)
[2024-07-15] MEDS: ZOFRAN 4 MG IV (10:18)
--- NOTE | 2024-07-15 11:39 | CM ---
Patient seen at bedside, complaining of stomach pain. Pending PT/OT recommendations currently TBD. CM will confirm discharge plan with and make referrals as appropriate to SNF vs home with VN. CM will continue to follow for discharge planning
needs.
Plan; home with VN vs SNF
--- NOTE | 2024-07-15 12:02 | W.PN.NEPH.PH ---
Today's Communication / Plan
-
Dialysis tomorrow
Assessment/Plan
-
Assessment
ESRD TTS [facility] unit
Weakness on presentation
Hypertension
Pulmonary edema
BPH
Anemia, on Aranesp
Right upper extremity AV fistula
Plan
HD tomorrow, orders provided
Anemia- TARUN on dialysis, hemoglobin up to 9.7 following transfusion
I will hold off heparin on dialysis
BP stable
Discussion with and patient who would like him to go to [facility] dialysis unit permanently and for rehab
-
-
Date of Service: July 15, 2024
CC / HPI / ROS
-
Chief Complaint:
ESRD
History of Present Illness:
s/p HD yesterday
ESRD Thursday
hb better at 8.7
Bps table, no fever
Review of Systems:
no cp or sob
feels well
Labs
-
Labs:
WBC 8.3 10^3/uL (4.8-10.8) 07/15/24 06:06
RBC 2.94 10^6/uL (4.70-6.10) L 07/15/24 06:06
Hgb 9.7 g/dL (13.0-18.0) L D 07/15/24 06:06
Hct 28.6 % (39.0-52.0) L 07/15/24 06:06
Plt Count 216 10^3/uL (130-400) 07/15/24 06:06
Sodium 135 mmol/L (135-145) 07/15/24 06:07
Potassium 3.9 mmol/L (3.5-5.1) 07/15/24 06:07
Chloride 96 mmol/L (98-107) L 07/15/24 06:07
Carbon Dioxide 29 mmol/L (22-30) 07/15/24 06:07
BUN 36 mg/dl (9-20) H 07/15/24 06:07
Creatinine 3.0 mg/dL (0.7-1.3) H 07/15/24 06:07
eGFR 19.61 07/15/24 06:07
Glucose 103 mg/dl (70-99) H 07/15/24 06:07
Calcium 8.4 mg/dl (8.4-10.2) 07/15/24 06:07
Albumin 3.5 g/dl (3.5-5.0) 07/12/24 10:15
Physical Exam
-
Vital Signs:
Vital Signs
Temp Pulse Resp BP Pulse Ox
97.8 F 76 16 130/78 97
07/15/24 11:08 07/15/24 11:08 07/15/24 11:08 07/15/24 11:08 07/15/24 11:08
Cardiovascular:: Regular rate and rhythm
Respiratory:: Bilateral: CTA
Lung Excursion:: Normal
Abdomen:: Nontender and Soft
Extremity Edema:: None: Bilateral:
Linares Catheter: No
[2024-07-15] MEDS: TYLENOL 650 MG PO ×2 (13:45→21:27)
[2024-07-15] MEDS: EFFEXOR XR 37.5 MG PO (13:46)
[2024-07-15] MEDS: ZYLOPRIM 100 MG PO (17:33)
[2024-07-15] MEDS: LOPRESSOR PO (20:07)
[2024-07-15] MEDS: LIPITOR 10 MG PO (20:18)
[2024-07-15] MEDS: CARDURA 4 MG PO (22:32)
[2024-07-16 03:00] VITALS: BP 108/63
[2024-07-16] MEDS: SYNTHROID 112 MCG PO (05:40)
[2024-07-16 06:00] VITALS: BMI 18.5
[2024-07-16 07:31] VITALS: BP 95/60
[2024-07-16 07:48] LABS: Hematocrit 26.4 % (39.0-52.0); Hemoglobin 8.7 g/dL (13.0-18.0); Mean Corpuscular Hgb 32.8 pg (27.0-31.0); Mean Corpuscular Volume 99.6 fL (80.0-94.0); Mean Platelet Volume 9.3 fL (7.4-10.4); Platelet Count 206 10^3/uL (130-400); Red Blood Cell Count 2.65 10^6/uL (4.70-6.10); Red Cell Dist. Width 16.8 % (11.5-14.5); White Blood Cell Count 6.2 10^3/uL (4.8-10.8)
[2024-07-16 08:33] LABS: Blood Urea Nitrogen 57 mg/dl (9-20); Carbon Dioxide 26 mmol/L (22-30); Chloride 95 mmol/L (98-107); Estimated Creatinine Clearance 9 ml/min; Glucose 100 mg/dl (70-99); Sodium 135 mmol/L (135-145); eGFR 12.73
[2024-07-16] MEDS: MANNITOL 25% 12.5 GRAMS IV (08:45)
[2024-07-16] MEDS: RETACRIT 10000 UNITS IV (08:52)
--- NOTE | 2024-07-16 09:41 | W.PN.NEPH.HD ---
Assessment
-
Patient seen on dialysis
Systolic blood pressure at 111 at the current UF
Progress Note - Hemodialysis
-
Date of Service: July 16, 2024
Duration: 30 minutes and 3 hours
Potassium Bath: 3
Calcium Bath: 2.5
Opti-Dialyzer: 160
Ultrafiltration: Other (Decrease UF to only 1 kg)
Blood Flow: 400
Dialysate Flow: 600
Heparin: None
EPO: 10,000
[2024-07-16 11:13] VITALS: BP 118/69
[2024-07-16] MEDS: EFFEXOR XR 37.5 MG PO (11:17)
[2024-07-16] MEDS: PROSCAR 5 MG PO (11:18)
[2024-07-16] MEDS: NORVASC 5 MG PO (11:18)
[2024-07-16] MEDS: LOPRESSOR 12.5 MG PO ×2 (11:21→20:09)
[2024-07-16] MEDS: TYLENOL 650 MG PO (11:21)
[2024-07-16] MEDS: WELLBUTRIN REGULAR RELEASE 100 MG PO ×2 (11:22→20:09)
[2024-07-16 15:38] VITALS: BP 102/66
--- NOTE | 2024-07-16 16:23 | W.PN.HOSP.TC ---
Today's Communication/Plan
-
wean O2
Assessment / Plan
Assessment / Plan
pt is an 84 year old male
Generalized weakness--likely due to acute on chronic anemia and clinical deconditioning--cortisol level WNL--PT/OT--rec TBD--pt says he is going to [facility] for therapy and HD?
Acute hypoxic respiratory insufficiency POA -- due to pulmonary edema from missed HD x2--COVID/FLU neg--wean O2 as able
Acute watery diarrhea, started 07/15--pt denies, says he never had diarrhea--Norovirus positive --pt denies any current diarrhea too--regardless, supporive care
Acute on chronic anemia--Hemoglobin 6.9 on admission, s/p 1 unit pRBC, responded appropriately.
End-stage renal disease on HD Thursday, , Thursday--HD was started in May 2024--apprec renal
Anxiety/depression--continue Venlafaxine, Wellbutrin BID
Essential Hypertension--continue Norvasc
BPH--Continue finasteride and doxazosin
HLD--continue statin
Type 2 Diabetes mellitus--diet controlled
DVT proph-- SCD
code status--DNR
Anticipated Discharge: 24 - 48 hours
Subjective/Interval History
-
Date of Service: July 16, 2024
pt feeling OK
Objective Data
-
Labs:
Laboratory Results
07/16/24
06:57
WBC 6.2
Hgb 8.7 L
Hct 26.4 L
Plt Count 206
Sodium 135
Potassium 4.0
Chloride 95 L
Carbon Dioxide 26
BUN 57 H
Creatinine 4.3 H*
Glucose 100 H
Calcium 8.0 L
Vital Signs:
max temp for 24 hours
07/16/24
15:38
Temp 98.0 F
Vital Signs
Temp Pulse Resp BP Pulse Ox
98.0 F 73 18 102/66 96
07/16/24 15:38 07/16/24 15:38 07/16/24 15:38 07/16/24 15:38 07/16/24 15:38
I&O
07/15/24 07/16/24 07/17/24
06:59 06:59 06:59
Intake Total 960 / 960 840 / 840
Balance 960 / 960 840 / 840
Review of Systems
-
All other systems: Reviewed and negative
Abdomen/GI: Denies Diarrhea
Physical Exam
-
General: Well Developed, Well Nourished and No Apparent Distress
HEENT: Normocephalic and Atraumatic
Respiratory: Clear to Auscultation; Negative Wheezes or Rhonchi
Cardiac: Regular Rhythm, S1/S2 and Murmur
GI: Soft, Nontender, Nondistended and Normal Bowel Sounds
Musculoskeletal: No Clubbing, No Cyanosis and No Edema
Neuro: Awake and Alert
Psych: Calm
[2024-07-16] MEDS: ZYLOPRIM 100 MG PO (17:48)
[2024-07-16] MEDS: CARDURA 4 MG PO (21:30)
[2024-07-16] MEDS: LIPITOR 10 MG PO (21:30)
[2024-07-16 23:20] VITALS: BP 158/83
[2024-07-17] MEDS: TYLENOL 650 MG PO (03:27)
[2024-07-17] MEDS: SYNTHROID 112 MCG PO (05:53)
[2024-07-17 06:00] VITALS: BMI 18.4
[2024-07-17 07:00] VITALS: BP 123/75
[2024-07-17 07:22] LABS: Hematocrit 26.2 % (39.0-52.0); Hemoglobin 8.9 g/dL (13.0-18.0); Mean Corpuscular Hgb 33.8 pg (27.0-31.0); Mean Corpuscular Volume 99.6 fL (80.0-94.0); Mean Platelet Volume 9.5 fL (7.4-10.4); Platelet Count 202 10^3/uL (130-400); Red Blood Cell Count 2.63 10^6/uL (4.70-6.10); Red Cell Dist. Width 16.3 % (11.5-14.5); White Blood Cell Count 6.5 10^3/uL (4.8-10.8)
[2024-07-17 07:59] LABS: Blood Urea Nitrogen 27 mg/dl (9-20); Calcium 8.1 mg/dl (8.4-10.2); Carbon Dioxide 30 mmol/L (22-30); Chloride 94 mmol/L (98-107); Estimated Creatinine Clearance 13 ml/min; Glucose 78 mg/dl (70-99); Magnesium 1.9 mg/dl (1.6-2.3); Potassium 3.8 mmol/L (3.5-5.1); Sodium 135 mmol/L (135-145); eGFR 20.43
[2024-07-17] MEDS: NORVASC 5 MG PO (08:42)
[2024-07-17] MEDS: PROSCAR 5 MG PO (08:43)
[2024-07-17] MEDS: WELLBUTRIN REGULAR RELEASE 100 MG PO ×2 (08:43→20:11)
[2024-07-17] MEDS: LOPRESSOR 12.5 MG PO ×2 (08:43→20:11)
--- NOTE | 2024-07-17 10:45 | W.PN.HOSP.TC ---
Today's Communication/Plan
-
zofran
Assessment / Plan
Assessment / Plan
pt is an 84 year old male
Generalized weakness--likely due to acute on chronic anemia and clinical deconditioning--cortisol level WNL--PT/OT---pt says he is going to [facility] for therapy and HD?
Acute hypoxic respiratory insufficiency POA -- due to pulmonary edema from missed HD x2--COVID/FLU neg--wean O2 as able--room air pulse ox drops to 83%
Acute watery diarrhea, started 07/15--pt denies, says he never had diarrhea--Norovirus positive --pt denies any current diarrhea too--regardless, supportive care--nausea could be remnant--try zofran
Acute on chronic anemia--Hemoglobin 6.9 on admission, s/p 1 unit pRBC, responded appropriately.
End-stage renal disease on HD Thursday, , Thursday--HD was started in May 2024--apprec renal
Anxiety/depression--continue Venlafaxine, Wellbutrin BID
Essential Hypertension--continue Norvasc
BPH--Continue finasteride and doxazosin
HLD--continue statin
Type 2 Diabetes mellitus--diet controlled
DVT proph-- SCD
code status--DNR
Anticipated Discharge: 24 - 48 hours
Subjective/Interval History
-
Date of Service: July 17, 2024
pt sitting with a basin on his lap (with saliva in it)--when asked what is wrong, he said I can't keep food down---I asked if he was nauseous (he replied no), I asked if he was having trouble swallowing (he replied no)--nurse went in immediately
after me and he said he was nauseous
Objective Data
-
Labs:
Laboratory Results
07/17/24
06:35
WBC 6.5
Hgb 8.9 L
Hct 26.2 L
Plt Count 202
Sodium 135
Potassium 3.8
Chloride 94 L
Carbon Dioxide 30
BUN 27 H
Creatinine 2.9 H
Glucose 78
Calcium 8.1 L
Vital Signs:
max temp for 24 hours
07/16/24
15:38
Temp 98.0 F
Vital Signs
Temp Pulse Resp BP Pulse Ox
98.4 F 60 17 123/75 97
07/17/24 07:00 07/17/24 08:42 07/17/24 07:00 07/17/24 08:42 07/17/24 07:00
I&O
07/16/24 07/17/24 07/18/24
06:59 06:59 06:59
Intake Total 840 / 840 420 / 420
Balance 840 / 840 420 / 420
Review of Systems
-
All other systems: Reviewed and negative
Physical Exam
-
General: Appears Chronically Ill (frail appearing male)
HEENT: Normocephalic and Atraumatic
Cardiac: Regular Rhythm and S1/S2; Negative Murmur
GI: Soft, Nontender, Nondistended and Normal Bowel Sounds
Musculoskeletal: No Clubbing, No Cyanosis and No Edema
Skin: Warm
Neuro: Awake
Psych: Calm
[2024-07-17] MEDS: ZOFRAN 4 MG IV (10:57)
--- NOTE | 2024-07-17 11:22 | W.PN.NEPH.PH ---
Today's Communication / Plan
-
Next dialysis will be for Thursday
Assessment/Plan
-
Assessment
ESRD TTS [facility] unit
Weakness on presentation
Hypertension
Pulmonary edema
BPH
Anemia, on Aranesp
Right upper extremity AV fistula
Plan
HD will be Thursday
Anemia- TARUN on dialysis,
I will hold off heparin on dialysis
BP stable
Discussion with and patient who would like him to go to [facility] dialysis unit permanently and for rehab
Patient now with known norovirus was liquid stool no vomiting
-
-
Date of Service: July 17, 2024
CC / HPI / ROS
-
Chief Complaint:
ESRD
History of Present Illness:
ESRD Thursday
hb better at 8.9
Bp stable
Review of Systems:
no cp or sob
feels well
No fevers
Labs
-
Labs:
WBC 6.5 10^3/uL (4.8-10.8) 07/17/24 06:35
RBC 2.63 10^6/uL (4.70-6.10) L 07/17/24 06:35
Hgb 8.9 g/dL (13.0-18.0) L 07/17/24 06:35
Hct 26.2 % (39.0-52.0) L 07/17/24 06:35
Plt Count 202 10^3/uL (130-400) 07/17/24 06:35
Sodium 135 mmol/L (135-145) 07/17/24 06:35
Potassium 3.8 mmol/L (3.5-5.1) 07/17/24 06:35
Chloride 94 mmol/L (98-107) L 07/17/24 06:35
Carbon Dioxide 30 mmol/L (22-30) 07/17/24 06:35
BUN 27 mg/dl (9-20) H 07/17/24 06:35
Creatinine 2.9 mg/dL (0.7-1.3) H 07/17/24 06:35
eGFR 20.43 07/17/24 06:35
Glucose 78 mg/dl (70-99) 07/17/24 06:35
Calcium 8.1 mg/dl (8.4-10.2) L 07/17/24 06:35
Albumin 3.5 g/dl (3.5-5.0) 07/12/24 10:15
Physical Exam
-
Vital Signs:
Vital Signs
Temp Pulse Resp BP Pulse Ox
98.4 F 60 17 123/75 95
07/17/24 07:00 07/17/24 08:42 07/17/24 07:00 07/17/24 08:42 07/17/24 11:16
Cardiovascular:: Regular rate and rhythm
Respiratory:: Bilateral: CTA
Lung Excursion:: Normal
Abdomen:: Nontender and Soft
Extremity Edema:: None: Bilateral:
Linares Catheter: No
[2024-07-17] MEDS: EFFEXOR XR 37.5 MG PO (13:39)
[2024-07-17 15:00] VITALS: BP 115/67
[2024-07-17] MEDS: ZYLOPRIM 100 MG PO (18:04)
[2024-07-17] MEDS: LIPITOR 10 MG PO (21:21)
[2024-07-17] MEDS: CARDURA 4 MG PO (21:21)
[2024-07-17 23:30] VITALS: BP 104/64
[2024-07-18] MEDS: SYNTHROID 112 MCG PO (05:05)
[2024-07-18 06:00] VITALS: BMI 18.3
[2024-07-18 06:02] LABS: Hematocrit 26.7 % (39.0-52.0); Hemoglobin 8.8 g/dL (13.0-18.0); Mean Corpuscular Hgb 33.2 pg (27.0-31.0); Mean Corpuscular Volume 100.8 fL (80.0-94.0); Mean Platelet Volume 9.4 fL (7.4-10.4); Platelet Count 211 10^3/uL (130-400); Red Blood Cell Count 2.65 10^6/uL (4.70-6.10); White Blood Cell Count 8.6 10^3/uL (4.8-10.8)
[2024-07-18 06:34] LABS: Blood Urea Nitrogen 43 mg/dl (9-20); Calcium 8.5 mg/dl (8.4-10.2); Carbon Dioxide 29 mmol/L (22-30); Chloride 96 mmol/L (98-107); Estimated Creatinine Clearance 9 ml/min; Glucose 73 mg/dl (70-99); Potassium 3.9 mmol/L (3.5-5.1); Sodium 135 mmol/L (135-145)
[2024-07-18 07:16] VITALS: BP 127/64
[2024-07-18] MEDS: LOPRESSOR 12.5 MG PO ×2 (08:05→19:23)
[2024-07-18] MEDS: WELLBUTRIN REGULAR RELEASE 100 MG PO ×2 (08:06→19:23)
[2024-07-18] MEDS: PROSCAR 5 MG PO (08:06)
[2024-07-18] MEDS: NORVASC 5 MG PO (08:06)
--- NOTE | 2024-07-18 11:21 | W.PN.NEPH.PH ---
Today's Communication / Plan
-
No acute need for dialysis today I see orders for tomorrow
Assessment/Plan
-
Assessment
ESRD TTS [facility] unit
Weakness on presentation
Hypertension
Pulmonary edema
BPH
Anemia, on Aranesp
Right upper extremity AV fistula
Plan
HD will be Thursday
Anemia- TARUN on dialysis,
I will hold off heparin on dialysis
BP stable
Previous discussions with and patient who would like him to go to [facility] dialysis unit permanently and for rehab
Patient now with known norovirus was liquid stool no vomiting.
See orders for dialysis
-
-
Date of Service: July 18, 2024
CC / HPI / ROS
-
Chief Complaint:
ESRD
History of Present Illness:
ESRD Thursday
Weight is down 7 kg since admission
Bp stable
Review of Systems:
no cp or sob
feels well
No fevers
Labs
-
Labs:
WBC 8.6 10^3/uL (4.8-10.8) 07/18/24 05:33
RBC 2.65 10^6/uL (4.70-6.10) L 07/18/24 05:33
Hgb 8.8 g/dL (13.0-18.0) L 07/18/24 05:33
Hct 26.7 % (39.0-52.0) L 07/18/24 05:33
Plt Count 211 10^3/uL (130-400) 07/18/24 05:33
Sodium 135 mmol/L (135-145) 07/18/24 05:33
Potassium 3.9 mmol/L (3.5-5.1) 07/18/24 05:33
Chloride 96 mmol/L (98-107) L 07/18/24 05:33
Carbon Dioxide 29 mmol/L (22-30) 07/18/24 05:33
BUN 43 mg/dl (9-20) H 07/18/24 05:33
Creatinine 4.2 mg/dL (0.7-1.3) H* 07/18/24 05:33
eGFR 13.10 07/18/24 05:33
Glucose 73 mg/dl (70-99) 07/18/24 05:33
Calcium 8.5 mg/dl (8.4-10.2) 07/18/24 05:33
Albumin 3.5 g/dl (3.5-5.0) 07/12/24 10:15
Physical Exam
-
Vital Signs:
Vital Signs
Temp Pulse Resp BP Pulse Ox
98.6 F 67 18 127/64 94
07/18/24 07:16 07/18/24 08:05 07/18/24 07:16 07/18/24 08:05 07/18/24 07:16
Cardiovascular:: Regular rate and rhythm
Respiratory:: Bilateral: CTA
Lung Excursion:: Normal
Abdomen:: Nontender and Soft
Extremity Edema:: None: Bilateral:
Linares Catheter: No
[2024-07-18] MEDS: EFFEXOR XR 37.5 MG PO (12:42)
--- NOTE | 2024-07-18 13:10 | CM ---
Addendum entered by Marina Estrada 07/18/24 15:54:
[facility] to review and update CM with bed availability and HD chair.
Original Note:
Patient seen at bedside with . [facility] has accepted patient pending bed availability and HD availability. CM updated patient and will send HD documentation. CM will continue to follow for discharge planning needs.
Plan; SNF
[2024-07-18 15:00] VITALS: BP 112/57
--- NOTE | 2024-07-18 16:51 | W.PN.HOSP.TC ---
Addendum entered and electronically signed by Ai Rodarte MD 07/18/24 18:22:
I saw and evaluated the patient independently. I reviewed the resident�s note and agree with findings and plan as documented by Dr. Jacinto.
GENERAL: well developed, well nourished, male in no apparent distress
HEENT: NC/AT
HEART: regular rate and rhythm, +S1, +S2
LUNGS : clear to auscultation bilaterally
ABDOM: soft, nontender, nondistended, + bowel sounds
EXT: no cyanosis, clubbing, or edema
NEUROLOGIC: grossly intact
Generalized weakness--likely due to acute on chronic anemia and clinical deconditioning--cortisol level WNL--PT/OT---pt [facility] for [facility] and HD--await CM input
Acute hypoxic respiratory insufficiency POA -- due to pulmonary edema from missed HD x2--COVID/FLU neg--wean O2 as able--room air pulse ox drops to 83%
Acute watery diarrhea, started 07/15--pt denies, says he never had diarrhea--Norovirus positive --pt denies any current diarrhea too--regardless, supportive care--nausea could be remnant
Acute on chronic anemia--Hemoglobin 6.9 on admission, s/p 1 unit pRBC, responded appropriately.
End-stage renal disease on HD Thursday, , Thursday--HD was started in May 2024--apprec renal
Anxiety/depression--continue Venlafaxine, Wellbutrin BID
Essential Hypertension--continue Norvasc
BPH--Continue finasteride and doxazosin
HLD--continue statin
Type 2 Diabetes mellitus--diet controlled
DVT proph-- SCD
code status--DNR
waiting for placement
Original Note:
Today's Communication/Plan
-
Continue supportive treatment for norovirus
Plan for HD tomorrow
Awaiting bed at [facility]
Assessment / Plan
Assessment / Plan
84 y/o male with:
# Acute on chronic anemia
- Hemoglobin 8.6 today, s/p 1 unit pRBC
# Acute hypoxic respiratory insufficiency
- 2/2 pulmonary edema from missed HD x2
- COVID/FLU neg
- Sat 99% on 2lit o2
- Wean O2 as able
# Norovirus positive
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
- Continue supportive care
# ESRD on HD TTS
- Last HD on Thursday
- Nephrology following
- Plan for HD tomorrow
# Anxiety/depression
- Continue Venlafaxine, Wellbutrin BID
# Essential Hypertension
- Continue Norvasc
# BPH
- Continue finasteride and doxazosin
# HLD
- Continue statin
# Type 2 Diabetes mellitus
- Diet controlled
DVT proph
- SCD
Code status
- DNR
Anticipated Discharge: 24 - 48 hours
Subjective/Interval History
-
Date of Service: July 18, 2024
Objective Data
-
Labs:
Laboratory Results
07/18/24
05:33
WBC 8.6
Hgb 8.8 L
Hct 26.7 L
Plt Count 211
Sodium 135
Potassium 3.9
Chloride 96 L
Carbon Dioxide 29
BUN 43 H
Creatinine 4.2 H*
Glucose 73
Calcium 8.5
Vital Signs:
Vital Signs
Temp Pulse Resp BP Pulse Ox
97.3 F 61 16 112/57 99
07/18/24 15:00 07/18/24 15:00 07/18/24 15:00 07/18/24 15:00 07/18/24 15:00
I&O
07/17/24 07/18/24 07/19/24
06:59 06:59 06:59
Intake Total 420 / 420 0 / 1110
Balance 420 / 420 1109 / 1109
Review of Systems
-
Unable to obtain full review of systems at this time due to: Dementia
History Source: Patient, Family and Records
Constitutional: Reports No Symptoms
EENT: Reports No Symptoms Reported
Respiratory: Reports No Symptoms
Cardiac: Reports No Symptoms
Abdomen/GI: Reports No Symptoms
Breast: Reports No Symptoms
Genitourinary: Reports No Symptoms
Musculoskeletal: Reports No Symptoms
Skin: Reports No Symptoms
Neuro: Reports No Symptoms
Endocrine: Reports No Symptoms
Hematologic / Lymphatic: Reports No Symptoms
Allergy / Immunology: Reports No Symptoms
Physical Exam
-
General: No Apparent Distress, Comfortable and Cachectic
HEENT: Normocephalic
Respiratory: Rales
Cardiac: Regular Rhythm and S1/S2
GI: Soft, Nontender and Nondistended
Genito-urinary: No Costovertebral Tender
Musculoskeletal: No Clubbing, No Cyanosis and No Edema
Neuro: Awake, Alert and Oriented
Psych: Calm
[2024-07-18] MEDS: ZYLOPRIM 100 MG PO (17:33)
[2024-07-18] MEDS: TYLENOL 650 MG PO (19:23)
[2024-07-18] MEDS: CARDURA 4 MG PO (23:48)
[2024-07-18] MEDS: LIPITOR 10 MG PO (23:48)
[2024-07-19 00:07] VITALS: BP 130/73
[2024-07-19] MEDS: SYNTHROID 112 MCG PO (05:51)
[2024-07-19 06:27] VITALS: BMI 18.6
[2024-07-19 06:33] LABS: % Basophils 0.2 % (0-2); % Eosinophils 4.5 % (0-6); % Immature Granulocytes 0.5 % (0-0.5); % Lymphocytes 18.1 % (20.5-51.1); % Neutrophils 64.7 % (42.2-75.2); Absolute Eosinophils 0.4 10^3/uL (0-0.7); Absolute Lymphocytes 1.5 10^3/uL (1.2-3.4); Absolute Neutrophils 5.3 10^3/uL (1.4-6.5); Hematocrit 25.8 % (39.0-52.0); Hemoglobin 8.4 g/dL (13.0-18.0); Mean Corp Hgb Conc. 32.6 g/dL (33.0-37.0); Mean Corpuscular Hgb 32.8 pg (27.0-31.0); Mean Corpuscular Volume 100.8 fL (80.0-94.0); Mean Platelet Volume 9.3 fL (7.4-10.4); Nucleated Red Blood Cells % 0 % (-); Platelet Count 215 10^3/uL (130-400); Red Blood Cell Count 2.56 10^6/uL (4.70-6.10); Red Cell Dist. Width 15.9 % (11.5-14.5); White Blood Cell Count 8.2 10^3/uL (4.8-10.8)
[2024-07-19 07:20] LABS: Blood Urea Nitrogen 56 mg/dl (9-20); Calcium 8.3 mg/dl (8.4-10.2); Carbon Dioxide 27 mmol/L (22-30); Chloride 98 mmol/L (98-107); Estimated Creatinine Clearance 8 ml/min; Glucose 136 mg/dl (70-99); Potassium 3.8 mmol/L (3.5-5.1); Sodium 137 mmol/L (135-145); eGFR 10.62
[2024-07-19 07:30] VITALS: BP 158/83
[2024-07-19] MEDS: WELLBUTRIN REGULAR RELEASE 100 MG PO ×2 (07:59→19:52)
[2024-07-19] MEDS: RETACRIT 6000 UNITS IV (09:53)
--- NOTE | 2024-07-19 10:33 | W.PN.NEPH.HD ---
Assessment
-
Tolerating dialysis today. Under his dry weight ultrafiltration just 1 L today
Progress Note - Hemodialysis
-
Date of Service: July 19, 2024
Duration: 30 minutes and 3 hours
Potassium Bath: 3
Calcium Bath: 2.5
Opti-Dialyzer: 160
Ultrafiltration: Other (Decrease UF to only 1 kg)
Blood Flow: 400
Dialysate Flow: 600
Heparin: None
EPO: 6,000
[2024-07-19] MEDS: EFFEXOR XR 37.5 MG PO (12:55)
[2024-07-19] MEDS: LOPRESSOR 12.5 MG PO ×2 (14:12→19:52)
[2024-07-19] MEDS: NORVASC 5 MG PO (14:13)
[2024-07-19] MEDS: PROSCAR 5 MG PO (14:13)
[2024-07-19 15:40] VITALS: BP 143/81
--- NOTE | 2024-07-19 17:26 | CM ---
Patient seen at bedside with and physicians. Patient declined offer of referral to alternative SNF for HD. Bed available at [facility] on thursday. CM will continue to follow for discharge planning needs.
Plan; SNF with HD
[2024-07-19] MEDS: ZYLOPRIM 100 MG PO (18:00)
--- NOTE | 2024-07-19 18:14 | W.PN.HOSP.TC ---
Addendum entered and electronically signed by Ai Rodarte MD 07/19/24 19:48:
I saw and evaluated the patient independently. I reviewed the resident�s note and agree with findings and plan as documented by Dr. Gastelum.
GENERAL: well developed, well nourished, male in no apparent distress
HEENT: NC/AT
HEART: regular rate and rhythm, +S1, +S2
LUNGS : clear to auscultation bilaterally
ABDOM: soft, nontender, nondistended, + bowel sounds
EXT: no cyanosis, clubbing, or edema
NEUROLOGIC: grossly intact
Generalized weakness--likely due to acute on chronic anemia and clinical deconditioning--cortisol level WNL--PT/OT---pt [facility] for therapy and HD--apprec CM input--BED THURSDAY
Acute hypoxic respiratory insufficiency POA -- due to pulmonary edema from missed HD x2--COVID/FLU neg--wean O2 as able--room air pulse ox drops to 83%
Acute watery diarrhea, started 07/15--pt denies, says he never had diarrhea--Norovirus positive --pt denies any current diarrhea --regardless, supportive care--nausea could be remnant
Acute on chronic anemia--Hemoglobin 6.9 on admission, s/p 1 unit pRBC, responded appropriately.
End-stage renal disease on HD Thursday, , Thursday--HD was started in May 2024--apprec renal
Anxiety/depression--continue Venlafaxine, Wellbutrin BID
Essential Hypertension--continue Norvasc
BPH--Continue finasteride and doxazosin
HLD--continue statin
Type 2 Diabetes mellitus--diet controlled
DVT proph-- SCD
code status--DNR
waiting for placement
Original Note:
Today's Communication/Plan
-
.
Assessment / Plan
Assessment / Plan
84-year-old male with PMH ESRD on HD TTS, anemia of chronic disease, anxiety/depression, hypertension, diet-controlled diabetes; presented from home with generalized weakness and low oxygen readings.
Impression/ Plan
# Acute on chronic anemia
- Hemoglobin 8.4 today, s/p 1 unit pRBC
# Acute hypoxic respiratory insufficiency
- 2/2 pulmonary edema from missed HD x2
- COVID/FLU neg
- Sat 97% on 2lit NC
- Wean O2 as able
# Norovirus positive
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
- Continue supportive care
# ESRD on HD TTS
- Last HD on Thursday
- Nephrology following
trend bmp
- HD today
# Anxiety/depression
- Continue Venlafaxine, Wellbutrin BID
# Essential Hypertension
- Continue Norvasc
# BPH
- Continue finasteride and doxazosin
# HLD
- Continue statin
# Type 2 Diabetes mellitus
- Diet controlled
DVT proph
- SCD
Code status
- DNR
SNF placement on Thursday.
Anticipated Discharge: 24 - 48 hours
Subjective/Interval History
-
Date of Service: July 19, 2024
Patient is having dialysis session today.
Reports no acute overnight issues.
Objective Data
-
Labs:
Laboratory Results
07/19/24
06:00
WBC 8.2
Hgb 8.4 L
Hct 25.8 L
Plt Count 215
Sodium 137
Potassium 3.8
Chloride 98
Carbon Dioxide 27
BUN 56 H
Creatinine 5.0 H*
Glucose 136 H
Calcium 8.3 L
Vital Signs:
Vital Signs
Temp Pulse Resp BP Pulse Ox
97.9 F 71 20 143/81 93
07/19/24 15:40 01/14/25 15:40 07/19/24 15:40 07/19/24 15:40 07/19/24 15:40
I&O
07/18/24 07/19/24 07/20/24
06:59 06:59 06:59
Intake Total 1110 / 1110 600 / 600 240 / 240
Output Total 250 / 250
Balance 1110 / 1110 350 / 350 240 / 240
Review of Systems
-
All other systems: Reviewed and negative
Physical Exam
-
General: No Apparent Distress
HEENT: Normocephalic and Atraumatic
Respiratory: Clear to Auscultation
Cardiac: Regular Rhythm and S1/S2
GI: Soft, Nontender, Nondistended and Normal Bowel Sounds
Skin: Warm and Dry
Neuro: Awake, Alert and Oriented
Psych: Calm
[2024-07-19 21:25] LABS: Glucose - Point of Care 149 mg/dl (70-99)
[2024-07-19] MEDS: CARDURA 4 MG PO (23:00)
[2024-07-19] MEDS: LIPITOR 10 MG PO (23:00)
[2024-07-19 23:23] VITALS: BP 132/75
[2024-07-20] MEDS: TYLENOL 650 MG PO (01:46)
[2024-07-20] MEDS: SYNTHROID 112 MCG PO (05:05)
[2024-07-20 06:22] VITALS: BMI 18.3
[2024-07-20 06:47] LABS: % Basophils 0.4 % (0-2); % Eosinophils 4.5 % (0-6); % Immature Granulocytes 1.3 % (0-0.5); % Lymphocytes 21.2 % (20.5-51.1); % Monocytes 14.6 % (1.7-9.3); Absolute Eosinophils 0.4 10^3/uL (0-0.7); Absolute Immature Granulocytes 0.1 10^3/uL (0-0.05); Absolute Lymphocytes 1.9 10^3/uL (1.2-3.4); Absolute Monocytes 1.3 10^3/uL (0.1-0.6); Absolute Neutrophils 5.3 10^3/uL (1.4-6.5); Hematocrit 30.4 % (39.0-52.0); Hemoglobin 9.8 g/dL (13.0-18.0); Mean Corp Hgb Conc. 32.2 g/dL (33.0-37.0); Mean Corpuscular Hgb 32.7 pg (27.0-31.0); Mean Corpuscular Volume 101.3 fL (80.0-94.0); Mean Platelet Volume 9.3 fL (7.4-10.4); Nucleated Red Blood Cells % 0 % (-); Platelet Count 227 10^3/uL (130-400); White Blood Cell Count 9.1 10^3/uL (4.8-10.8)
[2024-07-20 07:10] LABS: ALT (SGPT) 20 U/L (0-50); AST (SGOT) 30 U/L (17-59); Albumin 3.3 g/dl (3.5-5.0); Alkaline Phosphatase 128 U/L (38-126); Blood Urea Nitrogen 32 mg/dl (9-20); Calcium 8.1 mg/dl (8.4-10.2); Carbon Dioxide 32 mmol/L (22-30); Chloride 96 mmol/L (98-107); Estimated Creatinine Clearance 12 ml/min; Glucose 102 mg/dl (70-99); Potassium 3.8 mmol/L (3.5-5.1); Sodium 138 mmol/L (135-145); Total Bilirubin 0.5 mg/dl (0.2-1.3); Total Protein 5.9 g/dl (6.3-8.2); eGFR 18.86
[2024-07-20] MEDS: LOPRESSOR PO (08:03)
[2024-07-20] MEDS: NORVASC PO (08:04)
[2024-07-20] MEDS: WELLBUTRIN REGULAR RELEASE 100 MG PO ×2 (08:04→20:02)
[2024-07-20] MEDS: PROSCAR 5 MG PO (08:05)
[2024-07-20 08:07] VITALS: BP 104/60
--- NOTE | 2024-07-20 11:11 | W.PN.HOSP.TC ---
Addendum entered and electronically signed by Ai Rodarte MD 07/20/24 17:18:
I saw and evaluated the patient independently. I reviewed the resident�s note and agree with findings and plan as documented by Dr. Gastelum.
GENERAL: well developed, well nourished, male in no apparent distress
HEENT: NC/AT
HEART: regular rate and rhythm, +S1, +S2
LUNGS : clear to auscultation bilaterally
ABDOM: soft, nontender, nondistended, + bowel sounds
EXT: no cyanosis, clubbing, or edema
NEUROLOGIC: grossly intact
no changes--waiting for d/c to SNF on Thursday
Generalized weakness--likely due to acute on chronic anemia and clinical deconditioning--cortisol level WNL--PT/OT---[facility] for [facility] and HD--apprec CM input--BED THURSDAY
Acute hypoxic respiratory insufficiency POA -- due to pulmonary edema from missed HD x2--COVID/FLU neg--wean O2 as able--room air pulse ox drops to 83%
Acute watery diarrhea, started 07/15--pt denies, says he never had diarrhea--Norovirus positive --pt denies any current diarrhea --regardless, supportive care--nausea could be remnant
Acute on chronic anemia--Hemoglobin 6.9 on admission, s/p 1 unit pRBC, responded appropriately.
End-stage renal disease on HD Thursday, , Thursday--HD was started in May 2024--apprec renal
Anxiety/depression--continue Venlafaxine, Wellbutrin BID
Essential Hypertension--continue Norvasc
BPH--Continue finasteride and doxazosin
HLD--continue statin
Type 2 Diabetes mellitus--diet controlled
DVT proph-- SCD
code status--DNR
Original Note:
Today's Communication/Plan
-
trend bmp
Assessment / Plan
Assessment / Plan
84-year-old male with PMH ESRD on HD TTS, anemia of chronic disease, anxiety/depression, hypertension, diet-controlled diabetes; presented from home with generalized weakness and low oxygen readings.
Impression/ Plan
# Acute on chronic anemia
- Hemoglobin 9.8 today, s/p 1 unit pRBC
# Acute hypoxic respiratory insufficiency
- 2/2 pulmonary edema from missed HD x2
- COVID/FLU neg
-ON RA
# Norovirus positive
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
- Continue supportive care
# ESRD on HD TTS
- Last HD on Thursday
- Nephrology following
trend bmp
- HD tomorrow
# Anxiety/depression
- Continue Venlafaxine, Wellbutrin BID
# Essential Hypertension
- Continue Norvasc
# BPH
- Continue finasteride and doxazosin
# HLD
- Continue statin
# Type 2 Diabetes mellitus
- Diet controlled
DVT proph
- SCD
Code status
- DNR
SNF placement on Thursday.
Anticipated Discharge: 24 - 48 hours
Subjective/Interval History
-
Date of Service: July 20, 2024
Patient does not have any acute overnight issues
Objective Data
-
Labs:
Laboratory Results
07/20/24
05:30
WBC 9.1
Hgb 9.8 L
Hct 30.4 L
Plt Count 227
Sodium 138
Potassium 3.8
Chloride 96 L
Carbon Dioxide 32 H
BUN 32 H
Creatinine 3.1 H
Glucose 102 H
Calcium 8.1 L
Total Bilirubin 0.5
AST 30
ALT 20
Alkaline Phosphatase 128 H
Vital Signs:
Vital Signs
Temp Pulse Resp BP Pulse Ox
97.8 F 61 16 104/60 96
07/20/24 08:07 07/20/24 08:07 07/20/24 08:07 07/20/24 08:07 07/20/24 08:07
I&O
07/19/24 07/20/24 07/21/24
06:59 06:59 06:59
Intake Total 600 / 600 360 / 360
Output Total 250 / 250
Balance 350 / 350 360 / 360
Review of Systems
-
All other systems: Reviewed and negative (As per history)
Physical Exam
-
General: No Apparent Distress
HEENT: Normocephalic and Atraumatic
Respiratory: Clear to Auscultation
Cardiac: Regular Rhythm and S1/S2
GI: Soft, Nontender, Nondistended and Normal Bowel Sounds
Skin: Warm and Dry
Neuro: Awake, Alert, Oriented and AO x 3
Psych: Calm
[2024-07-20] MEDS: EFFEXOR XR 37.5 MG PO (12:09)
--- NOTE | 2024-07-20 14:59 | CM ---
Patient seen at bedside with and physicians. CM faxed updates to [facility] for HD, CM updated referral to Holly at [facility]. Continue to plan on bed availability on thursday for patient to transfer. Patient family continue to agree with plan
for transfer to SNF/HD at [facility]. CM will continue to follow for discharge planning needs.
Plan; next available bed at [facility]; thursday
--- NOTE | 2024-07-20 15:25 | W.PN.NEPH.PH ---
Today's Communication / Plan
-
Dialysis tomorrow
Awaiting placement
Assessment/Plan
-
Assessment
ESRD TTS [facility] unit
Weakness on presentation
Hypertension
Pulmonary edema
BPH
Anemia, on Aranesp
Right upper extremity AV fistula
Plan
HD will be Thursday,orders provided
Anemia- TARUN on dialysis,
I will hold off heparin on dialysis
BP stable
Previous discussions with and patient who would like him to go to [facility] dialysis unit permanently and for rehab
Patient now with known norovirus was liquid stool no vomiting.
See orders for dialysis
-
-
Date of Service: July 20, 2024
CC / HPI / ROS
-
Chief Complaint:
ESRD
History of Present Illness:
ESRD Thursday
Weight is down 7 kg since admission
Bp stable
Review of Systems:
no cp or sob
feels well
No fevers
Labs
-
Labs:
WBC 9.1 10^3/uL (4.8-10.8) 07/20/24 05:30
RBC 3.00 10^6/uL (4.70-6.10) L 07/20/24 05:30
Hgb 9.8 g/dL (13.0-18.0) L 07/20/24 05:30
Hct 30.4 % (39.0-52.0) L 07/20/24 05:30
Plt Count 227 10^3/uL (130-400) 07/20/24 05:30
Sodium 138 mmol/L (135-145) 07/20/24 05:30
Potassium 3.8 mmol/L (3.5-5.1) 07/20/24 05:30
Chloride 96 mmol/L (98-107) L 07/20/24 05:30
Carbon Dioxide 32 mmol/L (22-30) H 07/20/24 05:30
BUN 32 mg/dl (9-20) H 07/20/24 05:30
Creatinine 3.1 mg/dL (0.7-1.3) H 07/20/24 05:30
eGFR 18.86 07/20/24 05:30
Glucose 102 mg/dl (70-99) H 07/20/24 05:30
Calcium 8.1 mg/dl (8.4-10.2) L 07/20/24 05:30
Albumin 3.3 g/dl (3.5-5.0) L 07/20/24 05:30
Physical Exam
-
Vital Signs:
Vital Signs
Temp Pulse Resp BP Pulse Ox
97.8 F 61 16 104/60 96
07/20/24 08:07 07/20/24 08:07 07/20/24 08:07 07/20/24 08:07 07/20/24 11:47
Cardiovascular:: Regular rate and rhythm
Respiratory:: Bilateral: CTA
Lung Excursion:: Normal
Abdomen:: Nontender and Soft
Extremity Edema:: None: Bilateral:
Linares Catheter: No
[2024-07-20 15:29] VITALS: BP 122/65
[2024-07-20] MEDS: ZYLOPRIM 100 MG PO (17:33)
[2024-07-20] MEDS: LIPITOR 10 MG PO (20:01)
[2024-07-20] MEDS: LOPRESSOR 12.5 MG PO (20:02)
[2024-07-20] MEDS: CARDURA 4 MG PO (20:02)
[2024-07-20 23:00] VITALS: BP 144/79
[2024-07-21] MEDS: SYNTHROID 112 MCG PO (04:15)
[2024-07-21 06:00] VITALS: BMI 18.2
[2024-07-21 06:30] LABS: Hematocrit 29.3 % (39.0-52.0); Hemoglobin 9.6 g/dL (13.0-18.0); Mean Corp Hgb Conc. 32.8 g/dL (33.0-37.0); Mean Corpuscular Hgb 33.3 pg (27.0-31.0); Mean Corpuscular Volume 101.7 fL (80.0-94.0); Mean Platelet Volume 9.1 fL (7.4-10.4); Platelet Count 221 10^3/uL (130-400); Red Blood Cell Count 2.88 10^6/uL (4.70-6.10); Red Cell Dist. Width 16.1 % (11.5-14.5); White Blood Cell Count 10.2 10^3/uL (4.8-10.8)
[2024-07-21 06:55] LABS: Blood Urea Nitrogen 49 mg/dl (9-20); Calcium 8.4 mg/dl (8.4-10.2); Carbon Dioxide 27 mmol/L (22-30); Chloride 99 mmol/L (98-107); Estimated Creatinine Clearance 9 ml/min; Glucose 84 mg/dl (70-99); Potassium 3.9 mmol/L (3.5-5.1); Sodium 137 mmol/L (135-145); eGFR 13.89
[2024-07-21 08:02] VITALS: BP 162/74
--- NOTE | 2024-07-21 08:58 | CM ---
Addendum entered by Kristyn Cazares 07/21/24 14:38:
[facility] can accept tomorrow Saturday 07/22.
Per Holly they need an updated Hep B Surface AB & Surface AG (needs to be within 30 days) - tt hospitalist & order was placed
FAX OR ATTACH IN [facility] ONCE RECEIVED.
per Dr. Sanchez the patient will have a short HD treatment tomorrow then can be discharged to [facility]
IMM EXPLAINED & SIGNED. IN CHART
PLAN: [facility] after short tx of dialysis tomorrow
Report #: [id number]
Addendum entered by Kristyn Cazares 07/21/24 10:21:
Call to Holly Avery veronica at [facility] [phone] - she states she is waiting for approval for HD chair for dialysis. She will get back to
[facility] Report #: [id number]
Original Note:
CM returned call and left a message for Susana at [facility] [phone] ext [phone].
Await call back.
[2024-07-21] MEDS: RETACRIT 6000 UNITS IV (09:58)
--- NOTE | 2024-07-21 10:17 | W.PN.NEPH.HD ---
Assessment
-
Patient seen on hemodialysis
Systolic blood pressure stable at 121 at current UF
Patient resting comfortable
Hemoglobin at 9.6
Progress Note - Hemodialysis
-
Date of Service: July 21, 2024
Duration: 30 minutes and 3 hours
Potassium Bath: 3
Calcium Bath: 2.5
Opti-Dialyzer: 160
Ultrafiltration: Other (0.5 kg)
Blood Flow: 400
Dialysate Flow: 600
Heparin: None
EPO: 6000
--- NOTE | 2024-07-21 11:56 | W.PN.HOSP.TC ---
Addendum entered and electronically signed by Ai Rodarte MD 07/21/24 18:25:
I saw and evaluated the patient independently. I reviewed the resident�s note and agree with findings and plan as documented by Dr. Gastelum.
GENERAL: well developed, well nourished, male in no apparent distress
HEENT: NC/AT
HEART: regular rate and rhythm, +S1, +S2
LUNGS : clear to auscultation bilaterally
ABDOM: soft, nontender, nondistended, + bowel sounds
EXT: no cyanosis, clubbing, or edema
NEUROLOGIC: grossly intact
no changes--waiting for d/c to SNF on Thursday--to get small HD session before d/c
Generalized weakness--likely due to acute on chronic anemia and clinical deconditioning--cortisol level WNL--PT/OT---pt says he is going to [facility] for therapy and HD--apprec CM input--BED THURSDAY
Acute hypoxic respiratory insufficiency POA -- due to pulmonary edema from missed HD x2--COVID/FLU neg--wean O2 as able--room air pulse ox drops to 83%
Acute watery diarrhea, started 07/15--pt denies, says he never had diarrhea--Norovirus positive --pt denies any current diarrhea --regardless, supportive care--nausea could be remnant
Acute on chronic anemia--Hemoglobin 6.9 on admission, s/p 1 unit pRBC, responded appropriately.
End-stage renal disease on HD Thursday, , Thursday--HD was started in May 2024--apprec renal
Anxiety/depression--continue Venlafaxine, Wellbutrin BID
Essential Hypertension--continue Norvasc
BPH--Continue finasteride and doxazosin
HLD--continue statin
Type 2 Diabetes mellitus--diet controlled
DVT proph-- SCD
code status--DNR
Original Note:
Today's Communication/Plan
-
Monitor BMP
Assessment / Plan
Assessment / Plan
84-year-old male with PMH ESRD on HD TTS, anemia of chronic disease, anxiety/depression, hypertension, diet-controlled diabetes; presented from home with generalized weakness and low oxygen readings.
Impression/ Plan
# Acute on chronic anemia
- Hemoglobin 9.6 today, s/p 1 unit pRBC
# Acute hypoxic respiratory insufficiency
- 2/2 pulmonary edema from missed HD x2
- COVID/FLU neg
-ON RA
# Norovirus positive
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
- Continue supportive care
# ESRD on HD TTS
- Nephrology following
trend bmp
- HD today
# Anxiety/depression
- Continue Venlafaxine, Wellbutrin BID
# Essential Hypertension
- Continue Norvasc
# BPH
- Continue finasteride and doxazosin
# HLD
- Continue statin
# Type 2 Diabetes mellitus
- Diet controlled
DVT proph
- SCD
Code status
- DNR
SNF placement on Thursday.
Anticipated Discharge: 24 - 48 hours
Subjective/Interval History
-
Date of Service: July 21, 2024
Patient is undergoing dialysis.
Objective Data
-
Labs:
Laboratory Results
07/21/24
05:36
WBC 10.2
Hgb 9.6 L
Hct 29.3 L
Plt Count 221
Sodium 137
Potassium 3.9
Chloride 99
Carbon Dioxide 27
BUN 49 H
Creatinine 4.0 H
Glucose 84
Calcium 8.4
Vital Signs:
Vital Signs
Temp Pulse Resp BP Pulse Ox
97.4 F 62 16 162/74 95
07/21/24 08:02 07/21/24 08:02 07/21/24 08:02 07/21/24 08:02 07/21/24 10:45
I&O
07/20/24 07/21/24 07/22/24
06:59 06:59 06:59
Intake Total 360 / 360 960 / 960
Balance 360 / 360 960 / 960
Review of Systems
-
All other systems: Reviewed and negative
Physical Exam
-
General: No Apparent Distress
HEENT: Normocephalic and Atraumatic
Respiratory: Clear to Auscultation
Cardiac: Regular Rhythm and S1/S2
GI: Soft, Nontender, Nondistended and Normal Bowel Sounds
Skin: Warm and Dry
Neuro: Awake, Alert, Oriented and AO x 3
Psych: Calm
[2024-07-21] MEDS: TYLENOL 650 MG PO (12:25)
[2024-07-21] MEDS: WELLBUTRIN REGULAR RELEASE 100 MG PO ×2 (12:25→21:00)
[2024-07-21] MEDS: LOPRESSOR 12.5 MG PO ×2 (12:25→20:55)
[2024-07-21] MEDS: EFFEXOR XR 37.5 MG PO (12:26)
[2024-07-21] MEDS: PROSCAR 5 MG PO (12:26)
[2024-07-21] MEDS: NORVASC 5 MG PO (12:26)
[2024-07-21 15:43] VITALS: BP 124/70
[2024-07-21] MEDS: ZYLOPRIM 100 MG PO (16:17)
[2024-07-21] MEDS: CARDURA 4 MG PO (20:57)
[2024-07-21] MEDS: LIPITOR 10 MG PO (21:00)
[2024-07-21 21:18] LABS: Hepatitis B Surface Antigen Negative (Negative)
[2024-07-21 21:35] LABS: Hepatitis B Surface Antibody Positive
[2024-07-21 23:00] VITALS: BP 120/68
[2024-07-22] MEDS: SYNTHROID 112 MCG PO (05:10)
[2024-07-22 06:00] VITALS: BMI 18.3
[2024-07-22 06:30] LABS: Hematocrit 29.1 % (39.0-52.0); Hemoglobin 9.6 g/dL (13.0-18.0); Mean Corpuscular Hgb 33.1 pg (27.0-31.0); Mean Corpuscular Volume 100.3 fL (80.0-94.0); Mean Platelet Volume 9.2 fL (7.4-10.4); Platelet Count 211 10^3/uL (130-400); Red Cell Dist. Width 16.1 % (11.5-14.5); White Blood Cell Count 10.8 10^3/uL (4.8-10.8)
[2024-07-22 07:19] LABS: ALT (SGPT) 17 U/L (0-50); AST (SGOT) 24 U/L (17-59); Alkaline Phosphatase 130 U/L (38-126); Blood Urea Nitrogen 26 mg/dl (9-20); Calcium 8.3 mg/dl (8.4-10.2); Carbon Dioxide 30 mmol/L (22-30); Chloride 98 mmol/L (98-107); Estimated Creatinine Clearance 13 ml/min; Glucose 97 mg/dl (70-99); Potassium 3.8 mmol/L (3.5-5.1); Sodium 137 mmol/L (135-145); Total Bilirubin 0.4 mg/dl (0.2-1.3); Total Protein 5.7 g/dl (6.3-8.2); eGFR 20.43
--- NOTE | 2024-07-22 07:36 | W.PN.HOSP.TC ---
Addendum entered and electronically signed by Ai Rodarte MD 07/22/24 17:04:
I saw and evaluated the patient independently. I reviewed the resident�s note and agree with findings and plan as documented by Dr. Gastelum.
GENERAL: well developed, well nourished, male in no apparent distress
HEENT: NC/AT
HEART: regular rate and rhythm, +S1, +S2
LUNGS : clear to auscultation bilaterally
ABDOM: soft, nontender, nondistended, + bowel sounds
EXT: no cyanosis, clubbing, or edema
NEUROLOGIC: grossly intact
no changes--d/c to SNF today after HD
Generalized weakness--likely due to acute on chronic anemia and clinical deconditioning--cortisol level WNL--PT/OT---pt says he is going to [facility] for therapy and HD--apprec CM input--BED THURSDAY
Acute hypoxic respiratory insufficiency POA -- due to pulmonary edema from missed HD x2--COVID/FLU neg--on room air
Acute watery diarrhea, started 07/15--pt denies, says he never had diarrhea--Norovirus positive --pt denies any current diarrhea --regardless, supportive care--nausea could be remnant
Acute on chronic anemia--Hemoglobin 6.9 on admission, s/p 1 unit pRBC, responded appropriately.
End-stage renal disease on HD Thursday, , Thursday--HD was started in May 2024--apprec renal
Anxiety/depression--continue Venlafaxine, Wellbutrin BID
Essential Hypertension--continue Norvasc
BPH--Continue finasteride and doxazosin
HLD--continue statin
Type 2 Diabetes mellitus--diet controlled
DVT proph-- SCD
code status--DNR
Original Note:
Today's Communication/Plan
-
discharge today.
Assessment / Plan
Assessment / Plan
84-year-old male with PMH ESRD on HD TTS, anemia of chronic disease, anxiety/depression, hypertension, diet-controlled diabetes; presented from home with generalized weakness and low oxygen readings.
Impression/ Plan
# Acute on chronic anemia
- Hemoglobin 9.6 today, s/p 1 unit pRBC
# Acute hypoxic respiratory insufficiency
- 2/2 pulmonary edema from missed HD x2
- COVID/FLU neg
-ON RA
# Norovirus positive
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
- Continue supportive care
# ESRD on HD TTS
- Nephrology following
trend bmp
- HD today
# Anxiety/depression
- Continue Venlafaxine, Wellbutrin BID
# Essential Hypertension
- Continue Norvasc
# BPH
- Continue finasteride and doxazosin
# HLD
- Continue statin
# Type 2 Diabetes mellitus
- Diet controlled
DVT proph
- SCD
Code status
- DNR
SNF placement today.
Anticipated Discharge: Today
Subjective/Interval History
-
Date of Service: July 22, 2024
patient is undergoing his dialysis. comfortable.
Objective Data
-
Labs:
Laboratory Results
07/22/24
06:02
WBC 10.8
Hgb 9.6 L
Hct 29.1 L
Plt Count 211
Sodium 137
Potassium 3.8
Chloride 98
Carbon Dioxide 30
BUN 26 H
Creatinine 2.9 H
Glucose 97
Calcium 8.3 L
Total Bilirubin 0.4
AST 24
ALT 17
Alkaline Phosphatase 130 H
Vital Signs:
Vital Signs
Temp Pulse Resp BP Pulse Ox
97.8 F 61 16 120/68 98
07/21/24 23:00 07/21/24 23:00 07/21/24 23:00 07/21/24 23:00 07/21/24 23:00
I&O
07/21/24 07/22/24 07/23/24
06:59 06:59 06:59
Intake Total 960 / 960 1380 / 1380
Balance 960 / 960 1380 / 1380
Review of Systems
-
All other systems: Reviewed and negative (as per history)
Physical Exam
-
General: No Apparent Distress
HEENT: Normocephalic and Atraumatic
Respiratory: Clear to Auscultation
Cardiac: Regular Rhythm and S1/S2
GI: Soft, Nontender, Nondistended and Normal Bowel Sounds
Skin: Warm and Dry
Neuro: Awake, Alert, Oriented and AO x 3
--- NOTE | 2024-07-22 07:37 | W.DCSUMMARY ---
Addendum entered and electronically signed by Ai Rodarte MD 07/22/24 19:38:
Read, reviewed, and agree. See same day progress note for additional details. Time spent coordinating care, DC planning, review of DC plan of care with resident, transition of care, review of records in EMR, med rec, consults, notes, d/w
consultants, nursing, family, and CM = 35 minutes
Original Note:
Discharge Summary
Discharge Data
Date of Admission: 07/12/24
Date of Discharge: 07/22/24
Total time spent discharging patient (in min): 35
-
Pending Results: No
Hospital Course
Discharging Physician : Dr. Ai Rodarte, Dr. Taylor Gastelum.
Primary diagnosis:
Acute on chronic anemia
Acute hypoxic respiratory insufficiency
Norovirus infection
Secondary diagnosis:
End-stage renal disease on hemodialysis
Anemia of chronic disease
Hypertension
Anxiety/depression
Type II Diabetes
Benign prostate hyperplasia
Hyperlipidemia
Hospital Course :
Patient 84 y/o male with pmhx of ESRD on HD TTS presenting to the ED with generalized weakness and low oxygen levels at home. Patient had missed two HD sessions due to weakness.Patient fell due to his weakness without any injury. Was hypoxic upon
arrival in the ED (78% on room air). Labs showed Hgb of 6.9, patient was transfused 1 unit PRBC with improvement in his Hgb. No iron deficiency anemia noted. random cortisol was within normal limits. CXR showed mild acute interstitial and alveolar
cardiogenic pulmonary edema, small right pleural effusion and moderate cardiomegaly. Patient tested negative for COVID and Flu. Pt denied diarrhea but had acute watery diarrhea in the hospital and tested positive for Norovirus. TSH was low (0.06)
with normal T4, recommend outpatient f/u with PCP and repeat TSH in 4 weeks. Cr was 6.1 on admission, which downtrended to 2.9 today.
Clinical picture was consistent with pulmonary edema secondary to missed hemodialysis. Nephrology was on board for patient management. HD was done on Thursday (07/17) and thursday (07/19) and ( 07/23/24 ). TARUN was ordered on dialysis. PT/OT
recommend discharge to rehab as patient is still weak and needs assistance. No change in home meds were made during this hospitalization. Patient was saturating in the high 90s on 2lit oxygen and was weaned off.
Today, patient is medically stable for discharge to [facility] with continuation of home meds and hemodialysis.
Important imaging findings :
Chest x-ray 07/12/2024� Mild acute interstitial and alveolar cardiogenic pulmonary edema.
Small right pleural effusion.
Moderate cardiomegaly.
Discharge Plan
-
Patient Disposition: Correction/SNF
Discharge Diagnosis/Procedures: Acute on chronic anemia, Acute hypoxic respiratory insufficiency, pulmonary edema, ESRD, Anemia of chronic disease, acute diarrheal illness, norovirus infection, diabetes, anxiety/depression, hypertension, benign
prostate hyperplasia, hyperlipidemia.
Diet: Low Cholesterol and Low Sodium
Activity: As tolerated
Bathing Restrictions: None
Blood Work: TSH reflex FT4 in 4 weeks with PCP
Activity Restrictions/Additional Instructions:
Repeat TSH, T4 in 4 weeks, please get a lab order from PCP.
Referrals:
RAN SQUIRES DO [Family Provider] - in one week
Additional Discharge Medication Instructions: Follow-up with PCP in a week
Prescriptions:
New
bisacodyl 10 mg Suppository
10 mg ID [id number] PRN (Reason: constipation) Qty: 10 0RF
polyethylene glycol 3350 17 gram Powder In Packet
17 g PO DAILYPRN PRN (Reason: constipation) Qty: 15 0RF
acetaminophen 325 mg Tablet
650 mg PO Q4HPRN PRN (Reason: mild pain/ROBIN/temp> 100.4F) Qty: 60 0RF
Continued
atorvastatin 10 mg Tablet
10 mg PO HS
allopurinol 100 mg Tablet
100 mg PO DAILY
amlodipine 10 mg Tablet
5 mg PO DAILY
finasteride 5 mg Tablet
5 mg PO DAILY
levothyroxine 112 mcg Tablet
112 mcg PO DAILY
cholecalciferol (vitamin D3) [Vitamin D3] 25 mcg (1,000 unit) Capsule
50 mcg PO DAILY
venlafaxine 37.5 mg capsule,extended release 24hr
37.5 mg PO DAILY@1230
metoprolol tartrate 25 mg tablet
12.5 mg PO BID
Patient Comments:
NO PHARAMCY FILL AND FAMILY DOES NOT KNOW IF THIS IS SUCC OR TART
bupropion HCl 100 mg Tablet
100 mg PO BID 30 Days Qty: 60 0RF
torsemide 20 mg Tablet
20 mg PO DAILYPRN PRN (Reason: ON NON DIALYSIS DAY)
doxazosin 4 mg Tablet
4 mg PO HS
Discharge Orders:
Discharge Patient (As Directed); Ordered 07/22/24
Ordered By: Taylor Gastelum
Discharge Date and Time
Discharge Date/Time: 07/22/24 14:48
Print Language: SYRIAC
[2024-07-22 07:59] VITALS: BP 149/79
--- NOTE | 2024-07-22 09:40 | W.PN.NEPH.HD ---
Progress Note - Hemodialysis
-
Date of Service: July 22, 2024
Duration: 30 minutes and 3 hours
Potassium Bath: 3
Calcium Bath: 2.5
Opti-Dialyzer: 160
Ultrafiltration: Other (0.5 kg)
Blood Flow: 400
Dialysate Flow: 600
Heparin: None
EPO: 6000
--- NOTE | 2024-07-22 11:34 | CM ---
Addendum entered by Marina Estrada 07/22/24 14:22:
PLAN: [facility] after short tx of dialysis tomorrow
Report #: [phone]
Addendum entered by Marina Estrada 07/22/24 11:46:
CM updated Patient and she will provide credit card to acute rehab.
Original Note:
Patient accepted for transfer to SNF today. Patient will need wheelchair van as he does not qualify for ambulance. CM left for .
[2024-07-22] MEDS: EFFEXOR XR 37.5 MG PO (11:45)
[2024-07-22] MEDS: WELLBUTRIN REGULAR RELEASE 100 MG PO (11:45)
[2024-07-22] MEDS: LOPRESSOR 12.5 MG PO (11:45)
[2024-07-22] MEDS: NORVASC 5 MG PO (11:45)
[2024-07-22] MEDS: PROSCAR 5 MG PO (11:45)
[2024-07-22 14:42] VITALS: BP 130/73
== END 2024-07-22 14:48 | DRG 682 ==
LOC: 3 WEST ACU 12:30
PROVIDERS: Physician Assistant; Student in an Organized Health Care Education/Training Program; ADMITTING PHYSICIAN Internal Medicine; ATTENDING PHYSICIAN Internal Medicine; CONSULT PHYSICIAN Specialist; EMERGENCY PHYSICIAN Emergency Medicine; FAMILY PHYSICIAN Family Medicine
PROC: 30233N1 Transfusion of Nonautologous Red Blood Cells into Peripheral Vein, Percutaneous Approach (ICD-10-PCS; 2024-07-12)
PROC: 5A1D70Z Performance of Urinary Filtration, Intermittent, Less than 6 Hours Per Day (ICD-10-PCS; 2024-07-12)
DX: I12.0 Hypertensive chronic kidney disease with stage 5 chronic kidney disease or end stage renal disease (principal); N18.6 End stage renal disease; R64 Cachexia; Z68.1 Body mass index [BMI] 19.9 or less, adult; A08.11 Acute gastroenteropathy due to Norwalk agent; J81.1 Chronic pulmonary edema; Z66 Do not resuscitate; E03.9 Hypothyroidism, unspecified; D63.1 Anemia in chronic kidney disease; F32.A Depression, unspecified; F41.9 Anxiety disorder, unspecified; E11.22 Type 2 diabetes mellitus with diabetic chronic kidney disease; E78.00 Pure hypercholesterolemia, unspecified; N40.0 Benign prostatic hyperplasia without lower urinary tract symptoms; R09.02 Hypoxemia; R06.89 Other abnormalities of breathing; Z79.899 Other long term (current) drug therapy; Z11.52 Encounter for screening for COVID-19; Z79.890 Hormone replacement therapy; Z91.158 Patient's noncompliance with renal dialysis for other reason
CPT/HCPCS: 71045; 80048; 80053; 82533; 82728; 82962; 83540; 83550; 83735; 84439; 84443; 85025; 85027; 86140; 86706; 86850; 86900; 86901; 86920; 87040; 87340; 87502; 87798; 87811; 97116; 97162; 97166; 97535; 99285; G0257; P9016; P9047; Q5106